=== PATIENT | female | born 1975 | race Two or more races ===

== ENCOUNTER 2020-11-01 07:28 | Emergency (ER) | payer MEDICAID, SELFPAY ==
--- NOTE | 2020-11-01 07:41 | ED_ITS ---
HPI - Ear Problem General Stated complaint: Ear Problems Time Seen by Provider: 11/01/20 07:41 Source: patient and aerial photograph interpreter Mode of arrival: ambulatory Limitations: no limitations History of Present Illness MD Complaint: ear pain Location: right ear Duration: constant Severity: moderate Relieving factors: nothing Exacerbating factors: nothing Context: other (thought maybe a bug got in her ear while walking home yesterday flushed it with water but did not see a bug) Discharge from ear: no Treatment prior to arrival: none Related Data Previous Rx's Medication Instructions Recorded ofloxacin 10 drp OTIC (EARS) DAILY 7 Days #5 11/01/20 ml Allergies Allergy/AdvReac Type Severity Reaction Status Date / Time acetaminophen [From PERCOCET] Allergy Unknown NAUSEA & Unverified 01/04/20 15:41 VOMITING & DIAPHORESIS From PERCOCET Allergy Unknown NAUSEA & Uncoded 01/04/20 15:41 VOMITING & DIAPHORESIS Review of Systems Review of Systems: Constitutional : No Fever, No Chills ENT/Mouth : No swallowing difficulty, no change in voice, R ear pain Eyes: No Eye Pain, No Swelling Cardiovascular : No Chest Pain, No SOB Respiratory : No Cough, No Sputum Gastrointestinal : No Nausea, No Vomiting, No Diarrhea Genitourinary : No Dysuria Musculoskeletal : No Myalgias Skin : No rash Neuro : No Weakness, No Numbness, No Headache PMFSH Past Medical History Attestation statement: The following information was validated with the patient. Medical History Anxiety Asthma Social History Social History (Updated 11/01/20 @ 07:58 by Lisa Silver DO) Patient Tobacco Use Status: Never used Tobacco Use of substances other than those prescribed or required for medical reasons: No Advance Directives: No Advance Directives Information Provided: No Physical Exam Vital Signs: Appearance: Alert. Oriented X3. No acute distress. Eyes: Pupils equal, round and reactive to light. ENT: Pharynx normal. R TM mild cerumen no perforation, mild erythema of canal, no perforation normal TM, L TM normal, no mastoid ttp Neck: Normal inspection. Neck supple. CVS: Pulses normal. Respiratory: No respiratory distress. Abdomen: Soft Skin: Skin warm and dry. Normal skin color. Normal skin turgor. Extremities: No lower extremity edema. Neuro: Oriented X 3. No motor deficit. No sensory deficit. MDM - Ear MDM Narrative Medical decision making narrative: 45 yo female with hx of asthma 1 days of R sided ear pain she thought a bug was in it - currently has mild cerumen but also mild otitis externa - no insect seen, no signs of deeper space infection, no perforation - gtts ordered Discharge Plan Discharge Clinical Impression: Otitis externa Qualifiers: Otitis externa type: unspecified type Chronicity: acute Laterality: right Qualified Code(s): H60.501 - Unspecified acute noninfective otitis externa, right ear Patient Disposition: Home, Self-Care Instructions: Otitis Externa (ED) Additional Instructions: return to ED for any worsening symptoms or concerns no le entre agua en el o?do ramón 3 d?as. si no mejora en 3 d?as, consulte a gomes m?dico. Prescriptions: New ofloxacin 0.3 % drops 10 drp otic (ears) DAILY 7 Days Qty: 5 RF: 0 Referrals: Physician,Unknown [Physician] - 3 days (si no mejor) Print Language: Kazakh
== END 2020-11-01 08:23 | disposition home or self-care (01) ==
LOC: HO.ED 07:53
PROVIDERS: Emergency Provider Emergency Medicine; PCP Student in an Organized Health Care Education/Training Program
DX: H60.501 Unspecified acute noninfective otitis externa, right ear (principal); J45.909 Unspecified asthma, uncomplicated
CPT/HCPCS: 99283

== ENCOUNTER 2021-10-13 13:36 | Outpatient (REF) | payer MEDICAID, SELFPAY ==
--- NOTE | ~2021-10-13 | US_ITS ---
EXAMINATION: US VENOUS ULTRASOUND WITH DOPPLER LOWER EXTREMITY, LEFT CLINICAL INFORMATION: Soft tissue disorder with edema and swelling COMPARISON: Left lower extremity DVT study 11/15/2017 TECHNIQUE: Ultrasound of the deep veins is performed from the hip to the calf with compression sonography and color and pulse Doppler assessment. Spectral analysis with color-flow imaging is performed. FINDINGS: There is normal venous compression and respiratory variation and augmented flow. The visualized common femoral vein, superficial femoral vein, profunda femoral vein, popliteal vein, and the trifurcation region shows no evidence of deep venous thrombosis. There is no significant popliteal fossa cyst. If the patient's symptoms persist, followup ultrasound in 5 days 7 days might be of value to exclude proximal propagation from a non-visualized calf vein. US/US venous duplex LE IMPRESSION: No DVT demonstrated in the left lower extremity.
== END 2021-10-13 13:37 | disposition home or self-care (01) ==
LOC: HO.US 13:36
PROVIDERS: Visit Provider Internal Medicine
DX: R60.0 Localized edema (principal); M79.89 Other specified soft tissue disorders
CPT/HCPCS: 93971

== ENCOUNTER 2021-10-16 08:42 | Outpatient (REF) | payer MEDICAID, SELFPAY ==
--- NOTE | ~2021-10-16 | MM_ITS ---
EXAMINATION: MM SCREENING DIGITAL BREAST TOMOSYNTHESIS, BILATERAL CLINICAL INFORMATION: Screening. Asymptomatic. The lifetime risk of breast cancer based on the Tyrer-Cuzick Model is 12%. COMPARISON: Mammography: 10/03/2018, 07/27/2017, 06/03/2016 TECHNIQUE: Digital breast tomosynthesis is performed in both the craniocaudal and mediolateral oblique views along with computer-aided detection (CAD). Synthesized 2D images are generated from the tomosynthesis. Additional bilateral CC and bilateral MLO views are provided. FINDINGS: There are scattered areas of fibroglandular density (ACR BI-RADS breast composition Category b). There are no significant masses, abnormal calcifications, or other abnormalities. Breast tissue composition borders on predominantly fatty. Background stromal markings similar to prior studies. The axilla and skin contours are unremarkable. MM/MM tomosynthesis screening BI IMPRESSION: No mammographic evidence of malignancy. ASSESSMENT: BI-RADS 1: Negative RECOMMENDATION: Routine annual mammography screening. This patient's information was entered into a reminder system with a target due date for their next mammogram.
== END 2021-10-16 08:43 | disposition home or self-care (01) ==
LOC: HO.MAMMO 08:42
PROVIDERS: PCP Internal Medicine; Visit Provider Student in an Organized Health Care Education/Training Program
DX: Z12.31 Encounter for screening mammogram for malignant neoplasm of breast (principal)
CPT/HCPCS: 77063; 77067

== ENCOUNTER 2022-01-13 10:58 | Outpatient (REF) | payer MEDICAID, SELFPAY ==
--- NOTE | ~2022-01-13 | XR_ITS ---
EXAMINATION: XR SHOULDER, RIGHT CLINICAL INFORMATION: Pain COMPARISON: None TECHNIQUE: Three views of the right shoulder. FINDINGS: No acute fracture or dislocation. Joint spaces are maintained. Soft tissues are unremarkable. XR/XR shoulder RT min 2V IMPRESSION: Unremarkable radiographs of the shoulder.
== END 2022-01-13 10:59 | disposition home or self-care (01) ==
LOC: HO.XRAY 10:58
PROVIDERS: PCP Student in an Organized Health Care Education/Training Program; Visit Provider Student in an Organized Health Care Education/Training Program
DX: M25.511 Pain in right shoulder (principal); G56.91 Unspecified mononeuropathy of right upper limb
CPT/HCPCS: 73030

== ENCOUNTER 2022-03-04 10:17 | Outpatient (REF) | payer MEDICAID, SELFPAY ==
--- NOTE | ~2022-03-04 | XR_ITS ---
EXAMINATION: XR FOOT, RIGHT CLINICAL INFORMATION: Trauma COMPARISON: Previous x-ray from 2010 TECHNIQUE: AP, lateral, and oblique views of the right foot. FINDINGS: Bone alignment is normal. No fracture or dislocation. Normal joint spaces. Plantar calcaneal spur. Soft tissues are otherwise normal. XR/XR foot RT min 3V IMPRESSION: No acute findings.
== END 2022-03-04 10:18 | disposition home or self-care (01) ==
LOC: HO.XRAY 10:17
PROVIDERS: PCP Student in an Organized Health Care Education/Training Program; Visit Provider Emergency Medicine
DX: S99.921A Unspecified injury of right foot, initial encounter (principal)
CPT/HCPCS: 73630

== ENCOUNTER 2022-05-20 10:20 | Observation (INO) | payer MEDICAID, SELFPAY ==
[2022-05-20] VITALS (7 sets, daily range): BP systolic 153–201; BP diastolic 79–109; PULSE 79–107; RESP 16–20; TEMP 36.2–37; O2SAT 93–99; BMI 50.5
--- NOTE | ~2022-05-20 | CT_ITS ---
EXAMINATION: CT HEAD WITHOUT CONTRAST CLINICAL INFORMATION: Facial droop x2 days. Numbness. COMPARISON: No relevant prior imaging. TECHNIQUE: Contiguous axial imaging was performed from the skull base to vertex without intravenous administration of contrast. This CT examination was performed using dose optimization techniques as appropriate, variously including the following: *Automated exposure control *Adjustment of mA and/or kV according to patient size (this includes techniques or standardized protocols for targeted exams where dose is matched to indication/reason for exam; i.e. extremities or head) *Use of iterative reconstruction technique DLP: 796 mGy-cm FINDINGS: There is no acute intracranial hemorrhage or abnormal extra-axial collection. No intracranial mass effect or midline shift. Lateral and third ventricles are normal. No hydrocephalus. Mireles-white matter differentiation is grossly preserved and there is no evidence of acute territorial infarct. The calvarium and skull base are intact. Mastoid air cells and middle ear cavities are well aerated. No active paranasal sinus disease. CT/CT head/brain wo IV con IMPRESSION: Unremarkable CT scan of the head. Specifically no evidence of acute territorial infarct or hemorrhage.
--- NOTE | ~2022-05-20 | CT_ITS ---
EXAMINATION: CT ANGIOGRAM HEAD CT ANGIOGRAM NECK CLINICAL INFORMATION: Right facial droop COMPARISON: prior same-day head CT TECHNIQUE: Initial noncontrast psychiatric aides teacher imaging of the head and neck was performed. Comparison is made with noncontrast head CT from earlier today. Test bolus sequences followed by intravenous administration 70 mL of Omnipaque 350. Helical imaging was performed in the axial plane from the aortic arch to the skull vertex. Delayed postcontrast imaging of the head was also performed. The data was processed at the chemical engineering technologist's workstation for generation of MIP sequences. Angled MIPs and volume rendered reformatted images were also generated at an offline 3D workstation. Stenoses are assessed in accordance with NASCET criteria unless otherwise indicated. This CT examination was performed using dose optimization techniques as appropriate, variously including the following: *Automated exposure control *Adjustment of mA and/or kV according to patient size (this includes techniques or standardized protocols for targeted exams where dose is matched to indication/reason for exam; i.e. extremities or head) *Use of iterative reconstruction technique DLP: 1671 mGy-cm FINDINGS: CT HEAD: Noncontrast head CT findings are discussed separately. No pathologic intra-axial enhancement within limitations of CT or regional oligemia. CTA HEAD: Suboptimal examination due to delayed arteriovenous timing of contrast bolus. Within these limitations, there is no hemodynamically significant stenosis or proximal large vessel occlusion within the anterior or posterior circulation. No saccular aneurysm or high flow vascular malformation. Timing of the contrast bolus allows assessment of the major dural venous sinuses, which all opacify normally CTA NECK: Suboptimal examination due to timing of contrast bolus and beam hardening artifact from patient's body habitus.Classic 3 vessel branching pattern of the aortic arch. The cervical arterial vasculature appears grossly patent within these limitations, noting limited assessment for subtle intimal irregularity or dissection, particularly of the proximal vertebral arteries. CT NECK: No aerodigestive tract mass. . The salivary glands are unremarkable. The thyroid gland is normal. Normal appearance of the suprahyoid and infrahyoid neck spaces. No pathologically enlarged cervical chain lymph nodes. The osseous structures are intact. The visualized lung apices and upper mediastinum are within normal limits. CT/CT angio head neck IMPRESSION: Suboptimal CTA secondary to delayed timing of contrast bolus and beam hardening artifact, particularly affecting the proximal cervical vessels. Within these limitations, no acute arterial occlusion or hemodynamically significant stenosis within the head or neck.
--- NOTE | 2022-05-20 11:27 | ED_ITS ---
HPI - Neuro Symptoms/Deficit General Chief Complaint: Neuro Symptoms/Deficit Stated Complaint: Neck pain/mouth droop sent [facility] Time Seen by Provider: 05/20/22 10:48 Source: patient Mode of arrival: ambulatory Limitations: no limitations History of Present Illness HPI Narrative: Patient is a 47-year-old female who presents to the emergency department with referral from [facility]. Patient states that 3 days ago she began developing right lateral neck pain, she was evaluated and prescribed baclofen for muscle spasm. She states yesterday she took the baclofen at 1200. Her significant other felt that approximately 3 hours later her speech was different than normal, felt as though it sounded more slurred/muffled. She was evaluated again at PCP office today and sent here for evaluation of Good's palsy versus stroke. 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 Per family at bedside, overall her face does appear typical for baseline, however the drooping to her smile on the right side does appear slightly worse today. Related Data Previous Rx's Medication Instructions Recorded ofloxacin 0.3 % ear drops 10 drp otic (ears) DAILY 7 days #5 11/01/20 mL Allergies Allergy/AdvReac Type Severity Reaction Status Date / Time acetaminophen [From PERCOCET] Allergy Unknown NAUSEA & Unverified 01/04/20 15:41 VOMITING & DIAPHORESIS PMFSH Past Medical History Medical History Anxiety Asthma HTN (hypertension) Morbid obesity Social History Social History Alcohol intake: never Patient Tobacco Use Status: Never used Tobacco Smoked in Last 30 Days: No Use of substances other than those prescribed or required for medical reasons: No Advance Directives: No Advance Directives Information Provided: Yes Patient : No Physical Exam Vital Signs: Vital Signs: Last Vital Signs Temp 98.6 F 05/20/22 10:23 Pulse 100 05/20/22 15:37 Resp 18 05/20/22 15:37 BP 153/79 H 05/20/22 15:37 Pulse Ox 99 05/20/22 15:37 O2 Del Method 05/20/22 15:37 BMI result Body Mass Index 50.5 Appearance: Alert.?Oriented to person, place and time. No acute d istress.?Normal affect. Eyes: Pupils equal, round and reactive to light.? ENT: Pharynx normal.? TM normal bilaterally. ? Neck: Normal inspection.? Neck supple.?? CVS: Heart sounds normal. Normal heart rate and rhythm.? Pulses normal.?? Respiratory: No respiratory distress.? Lung sounds clear to auscultation bilaterally?? Abdomen: Soft and non-tender. Normoactive bowel sounds. No pulsatile mass.?? Skin: Skin warm and dry.? Normal skin color.? Normal skin turgor.?? Extremities: No lower extremity edema.? No calf ttp? Neuro: Facial asymmetry, right-sided facial droop, per family appears more pronounced at the mouth and baseline, normal sensory observed, normal coordination observed. Level of consciousness: Appropriate for age. Motor strength: Proximal right upper extremity 5 /5, distal right upper ext remity 5 /5, proximal left upper extremity 5 /5, distal left upper extremity 5 /5, right lower extremity 5 /5, left lower extremity 5 /5.?Speech: Normal, Gait: Normal, Bhelnf-mb-hivm test: Normal, Dldi-wy-qayt test: Normal. Ambulates with normal steady gait. Course Reevaluation(s) Reevaluation #1: CBC reveals no leukocytosis, no anemia. CMP is overall unremarkable. CRP mildly elevated 0.75, ESR is within normal limits. CT without evidence of acute intracranial pathology, no territorial infarct or hemorrhage is noted. At this time, patient and her family both expressed concern that her voice is not entirely back to normal. Additionally continues to report that paralysis to the right side of the mouth is remains slightly worse than what is baseline. ED attending Dr. Ruvalcaba at bedside also evaluate patient. There are no additional focal neurological deficits upon examination. Will obtain MRI of the brain to exclude infarct, patient with reports of claustrophobia and anxiety surrounding MRI, patient to be premedicated with lorazepam prior to scan. She is agreeable with plan of care at this time. Time: 14:37 Reevaluation #2: Advised that due to body habitus, patient would not be able to have MRI. Spoke with hospitalist service, Dr. Ramires, who accepts patient for admission to Medicine, for further evaluation, Neurology consult. Patient continues to express right lateral neck/trapezius pain at this time, tenderness upon palpation, consistent with musculoskeletal pain, will trial Flexeril Time: 16:44 Medications Administered Discontinued Medications Generic Name Dose Route Start Last Admin Trade Name Corina PRN Reason Stop Dose Admin Lorazepam 2 mg 05/20/22 14:34 05/20/22 15:39 Lorazepam 2 Mg/Ml Vial IVPUSH 05/20/22 14:35 2 mg ONCE ONE Administration Medical Decision Making Medical Decision Making [facility] Narrative: Patient is a 47-year-old female with past medical history of Good's palsy, asthma, hypertension, who presents emergency department with concerns for speech changes and worsening right partial facial paralysis particularly to the mouth, with last known well time 15:00 yesterday. NIH stroke score of 2 for facial palsy. Otherwise she is without any focal neurological deficits. Family at bedside does confirm that speech appears changed from baseline and right now weakness appears worse than normal. At this time concern for Good's palsy versus CVA. Will obtain CBC, CMP, ESR, CRP, Lyme testing, HSV testing, and CT of the head. Patient is agreeable plan of care. She is in no apparent distress. Vitals are stable. Differential Diagnosis Differential Diagnoses: The differential diagnosis associated with the presentation includes (As noted above) Admission/Observation Consideration of admission/observation: Escalation of care including admission/observation considered Lab Data [facility] Lab Attestation statement: I reviewed the patient's lab results. 05/20/22 12:10 05/20/22 12:10 Labs: Lab Results 05/20/22 05/20/22 05/20/22 Range/Units 12:10 12:10 12:10 WBC 9.3 (4.8-10.8) X10*3/uL RBC 5.40 (4.20-5.50) X10*6/uL Hgb 13.6 (12.0-16.0) g/dl Hct 42.2 (37.0-47.0) % MCV 78.1 L (80.0-98.0) fL MCH 25.2 L (27.0-33.0) pg MCHC 32.2 (31.0-35.0) g/dl RDW 13.6 (11.0-16.0) % Plt Count 244 (160-400) X10*3/uL MPV 11.4 (9.4-12.3) fL Immature Gran % (Auto) 0.4 (0.0-0.4) % Neut % (Auto) 72.3 (45-73) % Lymph % (Auto) 19.5 L (20-40) % [place] % (Auto) 5.5 (2-11) % Eos % (Auto) 1.9 (0-4) % Baso % (Auto) 0.4 (0-2) % Lymph # (Auto) 1.8 (1.2-4.9) X10*3/uL [place] # (Auto) 0.5 (0.1-1.2) X10*3/uL Eos # (Auto) 0.2 (0.0-0.4) X10*3/uL Baso # (Auto) 0.0 (0.0-0.2) X10*3/uL Abs Immat Gran (auto) 0.04 H (0.00-0.03) X10*3/uL Absolute Neuts (auto) 6.8 (2.0-8.3) x10*3/uL Absolute Nucleated RBC 0.000 (0.0-0.012) X10*3/uL Nucleated RBC % (auto) 0.0 (0.0-0.2) /100WBC ESR 20 (0-20) MM/HR PT 13.1 (10.0-13.1) SEC INR 1.1 (0.9-1.1) Sodium (135-145) mmol/L Potassium (3.3-5.1) mmol/L Chloride (96-108) mmol/L Carbon Dioxide (22-29) mmol/L Anion Gap (12-20) BUN (9-16) mg/dL Creatinine (0.5-1.4) mg/dL Estim Creat Clear Calc Estimated GFR Random Glucose (60-115) mg/dL Calcium (8.4-10.2) mg/dL Total Bilirubin (0.0-1.0) mg/dL AST (5-31) U/L ALT (0-31) U/L Alkaline Phosphatase (39-117) U/L C-Reactive Protein (< or = 0.50) mg/dL Total Protein (6.5-8.0) g/dL Albumin (3.5-5.0) g/dL 05/20/22 Range/Units 12:10 WBC (4.8-10.8) X10*3/uL RBC (4.20-5.50) X10*6/uL Hgb (12.0-16.0) g/dl Hct (37.0-47.0) % MCV (80.0-98.0) fL MCH (27.0-33.0) pg MCHC (31.0-35.0) g/dl RDW (11.0-16.0) % Plt Count (160-400) X10*3/uL MPV (9.4-12.3) fL Immature Gran % (Auto) (0.0-0.4) % Neut % (Auto) (45-73) % Lymph % (Auto) (20-40) % [place] % (Auto) (2-11) % Eos % (Auto) (0-4) % Baso % (Auto) (0-2) % Lymph # (Auto) (1.2-4.9) X10*3/uL [place] # (Auto) (0.1-1.2) X10*3/uL Eos # (Auto) (0.0-0.4) X10*3/uL Baso # (Auto) (0.0-0.2) X10*3/uL Abs Immat Gran (auto) (0.00-0.03) X10*3/uL Absolute Neuts (auto) (2.0-8.3) x10*3/uL Absolute Nucleated RBC (0.0-0.012) X10*3/uL Nucleated RBC % (auto) (0.0-0.2) /100WBC ESR (0-20) MM/HR PT (10.0-13.1) SEC INR (0.9-1.1) Sodium 139 (135-145) mmol/L Potassium 3.6 (3.3-5.1) mmol/L Chloride 103 (96-108) mmol/L Carbon Dioxide 25 (22-29) mmol/L Anion Gap 15 (12-20) BUN 13 (9-16) mg/dL Creatinine 0.85 (0.5-1.4) mg/dL Estim Creat Clear Calc 120.5 Estimated GFR > 60 Random Glucose 129 H (60-115) mg/dL Calcium 9.6 (8.4-10.2) mg/dL Total Bilirubin 0.6 (0.0-1.0) mg/dL AST 15 (5-31) U/L ALT 15 (0-31) U/L Alkaline Phosphatase 86 (39-117) U/L C-Reactive Protein 0.75 H (< or = 0.50) mg/dL Total Protein 7.2 (6.5-8.0) g/dL Albumin 4.1 (3.5-5.0) g/dL Independent Interpretation I performed an independent interpretation of an: CT Scan Radiology Impression Discussion of test interpretation with radiology: I have reviewed the radiologist's reading. Radiologist Impression: CT/CT head/brain wo IV con IMPRESSION: Unremarkable CT scan of the head. Specifically no evidence of acute territorial infarct or hemorrhage. NIH Stroke Scale Time: 11:15 Level of Consciousness: Alert Level of Consciousness Questions: Answers both questions correctly Level of Consciousness Commands: Performs both tasks correctly Best Gaze: Normal Visual: No visual loss Facial Palsy: Partial paralysis Motor Arm (Right): No drift Motor Arm (Left): No drift Motor Leg (Right): No drift Motor Leg (Left): No drift Limb Ataxia: Absent Sensory: Normal Best Language: No aphasia Dysarthia: Normal Extinction and Inattention: No abnormality Score: 2 Critical Care Time Critical Care Time Critical Care Time: Yes Total Critical Care Time: 45 Attestation: I personally attest to this critical care time spent taking care of the patient exclusive of all other billable procedures was approximately 45 minutes including initial evaluation of patient, ordering tests, x-ray interpretation, EKG interpretation, medical consultation, documentation, re-evaluation. Discharge Plan Discharge Clinical Impression: Facial droop, HTN (hypertension), Morbid obesity Patient Disposition: Admitted As Inpatient
[2022-05-20 12:14] LABS: MANUAL DIFF FLAG NO
[2022-05-20 12:16] LABS: Basophils Percent Auto 0.4 % (0-2); Eosinophils Absolute Auto 0.2 X10*3/uL (0.0-0.4); Eosinophils Percent Auto 1.9 % (0-4); Hematocrit 42.2 % (37.0-47.0); Hemoglobin 13.6 g/dl (12.0-16.0); Imm Gran Abs Auto 0.04 X10*3/uL (0.00-0.03); Imm Gran Pct Auto 0.4 % (0.0-0.4); Lymphocytes Absolute Auto 1.8 X10*3/uL (1.2-4.9); Lymphocytes Percent Auto 19.5 % (20-40); Mean Corpuscular HGB Conc 32.2 g/dl (31.0-35.0); Mean Corpuscular Hemoglobin 25.2 pg (27.0-33.0); Mean Corpuscular Volume 78.1 fL (80.0-98.0); Mean Platelet Volume 11.4 fL (9.4-12.3); Monocytes Absolute Auto 0.5 X10*3/uL (0.1-1.2); Monocytes Percent Auto 5.5 % (2-11); Neutrophils Absolute Auto 6.8 x10*3/uL (2.0-8.3); Neutrophils Percent Auto 72.3 % (45-73); Platelet Count 244 X10*3/uL (160-400); Red Cell Distribution Width 13.6 % (11.0-16.0); White Blood Count 9.3 X10*3/uL (4.8-10.8)
[2022-05-20 12:21] LABS: INTERNATIONAL NORM RATIO 1.1 (0.9-1.1); Prothrombin Time 13.1 SEC (10.0-13.1)
[2022-05-20 12:37] LABS: Alanine Aminotransferase 15 U/L (0-31); Albumin Level 4.1 g/dL (3.5-5.0); Alkaline Phosphatase 86 U/L (39-117); Anion Gap 15 (12-20); Aspartate Amino Transferase 15 U/L (5-31); Bilirubin Total 0.6 mg/dL (0.0-1.0); Blood Urea Nitrogen 13 mg/dL (9-16); C Reactive Protein 0.75 mg/dL (< or = 0.50); Calcium 9.6 mg/dL (8.4-10.2); Carbon Dioxide 25 mmol/L (22-29); Chloride 103 mmol/L (96-108); Creatinine Clr Calc Pharmacy 120.5; Estimated Glomerular Filt Rate > 60; Glucose Random 129 mg/dL (60-115); Potassium 3.6 mmol/L (3.3-5.1); Sodium 139 mmol/L (135-145); Total Protein 7.2 g/dL (6.5-8.0)
[2022-05-20 12:56] LABS: Erythrocyte Sedimentation Rate 20 MM/HR (0-20)
--- NOTE | 2022-05-20 15:21 | PC.NURSE ---
MRI screening form faxed at this time.
[2022-05-20] MEDS: LORazepam 2 MG/ML VIAL IVPUSH (15:39)
--- NOTE | 2022-05-20 15:47 | PC.NURSE ---
Pt to MRI.
--- NOTE | 2022-05-20 16:24 | PC.NURSE ---
back from mri at this time.
--- NOTE | 2022-05-20 17:23 | P.HPHOSP_ITS ---
History of Present Illness Date of Service: 05/20/22 Chief Complaint: right facial droop 47F pmh HTN, HLD, morbid obesity presented with right facial droop. patient was complaining of left sided neck soreness 2 days ptp. was prescribed baclofen, after taking baclofen noted right facial droop and slurred speech. in ED CTH unremarkable, unable to fit in MRI. facial droop unchanged. Review of Systems Review of Systems: Yes all other systems are reviewed and are negative [facility] Medical History Anxiety Asthma HTN (hypertension) Morbid obesity Social History Alcohol intake: never Patient Tobacco Use Status: Never used Tobacco Smoked in Last 30 Days: No Use of substances other than those prescribed or required for medical reasons: No Advance Directives: No Advance Directives Information Provided: Yes Patient : No Meds Allergies Allergy/AdvReac Type Severity Reaction Status Date / Time acetaminophen [From PERCOCET] Allergy Unknown NAUSEA & Unverified 01/04/20 15:41 VOMITING & DIAPHORESIS Active Medications: Current Medications Aspirin (Aspirin 81 Mg Tab.Chew) 81 mg PO DAILY [facility] Atorvastatin Calcium (Atorvastatin Calcium 80 Mg Tablet) 80 mg PO BEDTIME [facility] Pharmacy Consult (Consult Rx Perform Med Rec) 1 each MISCELLANE ONCE PRN PRN Reason: Consult order Pharmacy Consult (Consult Rx Perform Med Rec) 1 each MISCELLANE ONCE PRN PRN Reason: Consult order Physical Exam Vital Signs and Narrative: Vital Signs: Last Vital Signs Temp 98.6 F 05/20/22 10:23 Pulse 100 05/20/22 15:37 Resp 18 05/20/22 15:37 BP 153/79 H 05/20/22 15:37 Pulse Ox 99 05/20/22 15:37 O2 Del Method 05/20/22 15:37 BMI result Body Mass Index 50.5 General: AO X 3, no acute distress Resp: CTA bilateral, no accessory muscles used CVS: S1,S2,RRR GI: soft, non tender, non distended Neuro: right facial droop Psych: appropriate affect, appropriate insight Results Labs 05/20/22 12:10 05/20/22 12:10 Labs: Laboratory Results - last 24 hr 05/20/22 05/20/22 05/20/22 12:10 12:10 12:10 MCV 78.1 L MCH 25.2 L MCHC 32.2 RDW 13.6 Plt Count 244 MPV 11.4 Immature Gran % (Auto) 0.4 Neut % (Auto) 72.3 Lymph % (Auto) 19.5 L [place] % (Auto) 5.5 Eos % (Auto) 1.9 Baso % (Auto) 0.4 Lymph # (Auto) 1.8 [place] # (Auto) 0.5 Eos # (Auto) 0.2 Baso # (Auto) 0.0 Abs Immat Gran (auto) 0.04 H Absolute Neuts (auto) 6.8 Absolute Nucleated RBC 0.000 Nucleated RBC % (auto) 0.0 ESR 20 PT 13.1 INR 1.1 Anion Gap Estim Creat Clear Calc Estimated GFR Random Glucose Calcium Total Bilirubin AST ALT Alkaline Phosphatase C-Reactive Protein Total Protein Albumin 05/20/22 12:10 MCV MCH MCHC RDW Plt Count MPV Immature Gran % (Auto) Neut % (Auto) Lymph % (Auto) [place] % (Auto) Eos % (Auto) Baso % (Auto) Lymph # (Auto) [place] # (Auto) Eos # (Auto) Baso # (Auto) Abs Immat Gran (auto) Absolute Neuts (auto) Absolute Nucleated RBC Nucleated RBC % (auto) ESR PT INR Anion Gap 15 Estim Creat Clear Calc 120.5 Estimated GFR > 60 Random Glucose 129 H Calcium 9.6 Total Bilirubin 0.6 AST 15 ALT 15 Alkaline Phosphatase 86 C-Reactive Protein 0.75 H Total Protein 7.2 Albumin 4.1 Imaging Radiologist's Impressions: Impressions Head CT 05/20/22 12:39 IMPRESSION: Unremarkable CT scan of the head. Specifically no evidence of acute territorial infarct or hemorrhage. Assessment and Plan (1) HTN (hypertension): Status: Acute Plan 47F pmh HTN, hld, morbid obesity presented with right facial droop right facial droop unable to obtain mri asa, statin neuro eval cta head and neck htn permissive htn hld statin morbid obesity weight loss dvt prohpylaxis - lovenox full code Time Spent With Patient Time: Total time managing care of this patient today ____ minutes. Quality Stroke Does the patient have a stroke diagnosis?: No VTE Prior VTE?: No VTE Risk Level:: Medical - moderate - high VTE Device Contraindication: Treatment Not Indicated VTE Drug Contraindication: N/A - Med Ordered
--- NOTE | 2022-05-20 18:05 | PHA.MEDREC ---
Pharmacy Consult ? Medication Reconciliation Pharmacy has completed the medication reconciliation. Pt also said that she was on a cholesterol and BP med, verified with [facility], last fill as 6 months ago, made aware
[2022-05-20 18:58] LABS: COVID-19 Test Negative (Negative); IDNOW Serial# BCCEAD1C
[2022-05-20] MEDS: iohexoL 350 MG/ML 100 ML INFUS..BTL IV (19:14)
[2022-05-20] MEDS: Cyclobenzaprine HCl 10 MG TABLET PO (19:30)
--- NOTE | 2022-05-20 19:38 | PC.NURSE ---
Called nurse to nurse report [place] Mer[place] [facility] [place]
[2022-05-20] MEDS: Atorvastatin Calcium 80 MG TABLET PO (21:44)
[2022-05-20] MEDS: 0.9 % Sodium Chloride Flush 3 ML SYRINGE IVFLUSH (23:33)
[2022-05-20] MEDS: Ketorolac Tromethamine 30 MG/ML VIAL IVPUSH (23:33)
[2022-05-21 04:00] VITALS: BP 173/93; PULSE 68; RESP 18; TEMP 36.6; O2SAT 100
[2022-05-21 06:40] LABS: Hematocrit 42.4 % (37.0-47.0); Hemoglobin 13.2 g/dl (12.0-16.0); Mean Corpuscular HGB Conc 31.1 g/dl (31.0-35.0); Mean Corpuscular Volume 80.3 fL (80.0-98.0); Mean Platelet Volume 11.5 fL (9.4-12.3); Platelet Count 254 X10*3/uL (160-400); Red Blood Count 5.28 X10*6/uL (4.20-5.50); Red Cell Distribution Width 13.7 % (11.0-16.0); White Blood Count 9.3 X10*3/uL (4.8-10.8)
[2022-05-21 07:06] LABS: Anion Gap 16 (12-20); Blood Urea Nitrogen 14 mg/dL (9-16); Calcium 9.7 mg/dL (8.4-10.2); Carbon Dioxide 25 mmol/L (22-29); Chloride 102 mmol/L (96-108); Cholesterol 207 mg/dL; Creatinine Clr Calc Pharmacy 123.4; Estimated Glomerular Filt Rate > 60; Glucose Fasting 138 mg/dL (60-99); HDL Cholesterol 43 mg/dL; LDL Cholesterol Calculated 140 mg/dl; Potassium 3.8 mmol/L (3.3-5.1); Sodium 139 mmol/L (135-145); Triglycerides 120 mg/dL
[2022-05-21 07:52] VITALS: BP 145/78; PULSE 83; RESP 16; TEMP 36; O2SAT 97
[2022-05-21] MEDS: 0.9 % Sodium Chloride Flush 3 ML SYRINGE IVFLUSH (08:26)
[2022-05-21] MEDS: Enoxaparin Sodium 40 MG/0.4 ML SYRINGE SUBCUT (08:26)
[2022-05-21] MEDS: Aspirin 81 MG TAB.CHEW PO (08:26)
--- NOTE | 2022-05-21 08:47 | MHC.CM.PN ---
MOSES DELIVERED. PT LIVES ALONE IN AN APARTMENT. HAS NO SERVICES AT HOME AND USES NO DME. PT IS EMPLOYED [employer] WORK[employer]. NO HCP AND DECLINES TO COMPLETE ONE AT THIS TIME. COVID VAX X4. PCP DR. QUINTANA AT [facility]. DP: HOME NO SERVICES ANTICIPATED, FAMILY WILL TRANSPORT HOME.
--- NOTE | 2022-05-21 10:44 | PM.NEUROCN ---
History of Present Illness Data of Consult Service Date: 05/21/22 Primary Care Provider: Meredith Morris MD HPI Reason for consult: Facial weak 47 years old woman morbidly obese who came to hospital with facial weakness. She denied any headache or ear pain or any cold or flu-like illness though recently she had complained of neck pain and was prescribed some baclofen. She reported that 15 years ago she had some facial neuropathy. Review of Systems Review of Systems: No recent cold or flu-like illness PMFSH Past Medical History Medical History Anxiety Asthma HTN (hypertension) Morbid obesity Social History Social History Household Members: Significant Other Housing: Apartment Do you presently have visiting nurse or other home services: No Alcohol intake: never Patient Tobacco Use Status: Never used Tobacco Smoked in Last 30 Days: No Use of substances other than those prescribed or required for medical reasons: No Currently Displaying Signs/Symptoms of Drug Intoxication Withdrawal: No Have you been hit, kicked, punched, or otherwise hurt by someone within the past year? If so, by whom?: No Do you feel safe in your current relationship?: Yes Advance Directives: No Advance Directives Information Provided: Yes Recently lost weight without trying: No Nutrition Risks: No Nutritional Risk Patient : No : No Poor oral hygiene: No service: No Current occupational status: employed Meds Allergies Allergy/AdvReac Type Severity Reaction Status Date / Time acetaminophen [From PERCOCET] Allergy Unknown NAUSEA & Unverified 01/04/20 15:41 VOMITING & DIAPHORESIS Active Medications: Current Medications Aspirin (Aspirin 81 Mg Tab.Chew) 81 mg PO DAILY [facility] Last Admin: 05/21/22 08:26 Dose: 81 mg Atorvastatin Calcium (Atorvastatin Calcium 80 Mg Tablet) 80 mg PO BEDTIME [facility] Last Admin: 05/20/22 21:44 Dose: 80 mg Enoxaparin Sodium (Enoxaparin Sodium 40 Mg/0.4 Ml Syringe) 40 mg SUBCUT Q24H [facility] Last Admin: 05/21/22 08:26 Dose: 40 mg Pharmacy Consult (Consult Rx Perform Med Rec) 1 each MISCELLANE ONCE PRN PRN Reason: Consult order Pharmacy Consult (Consult Rx Perform Med Rec) 1 each MISCELLANE ONCE PRN PRN Reason: Consult order Sodium Chloride (0.9 % Sodium Chloride Flush 3 Ml Syringe) 3 ml IVFLUSH QSHIFT LILO Last Admin: 05/21/22 08:26 Dose: 3 ml Home Medications Medication Instructions Recorded Confirmed Last Taken Type aspirin 81 mg tablet,delayed 1 tab PO DAILY 05/20/22 05/20/22 05/20/22 History release baclofen 10 mg tablet 10 mg PO BID PRN Muscle Spasm 05/20/22 05/20/22 05/20/22 History fluticasone propionate 110 2 puff inhalation BID 05/20/22 05/20/22 05/19/22 History mcg/actuation HFA aerosol inhaler (Flovent HFA) Physical Exam Vital Signs: Vital Signs: Last Vital Signs Temp 96.8 F 05/21/22 07:52 Pulse 83 05/21/22 07:52 Resp 16 05/21/22 07:52 BP 145/78 H 05/21/22 07:52 Pulse Ox 97 05/21/22 07:52 O2 Del Method 05/21/22 07:52 BMI result Body Mass Index 50.5 Neuro: Other: He is alert and awake with normal spontaneity of speech fluency comprehension and affect. Speech is slurred because of facial weakness. There is moderate right-sided peripheral type facial weakness though lower part of the face is affected more than upper. Tongue is midline. Visual granados are full. Extraocular muscles were intact. Pupils are equal and reactive to light. There is no pronator drift. Deep tendon reflexes are trace to absent with with withdrawing plantars. Results Labs 05/21/22 06:03 05/21/22 06:03 Labs: Short CBC 05/20/22 05/21/22 Range/Units 12:10 06:03 WBC 9.3 9.3 (4.8-10.8) X10*3/uL Hgb 13.6 13.2 (12.0-16.0) g/dl Hct 42.2 42.4 (37.0-47.0) % Plt Count 244 254 (160-400) X10*3/uL BMP 05/20/22 05/21/22 12:10 06:03 Sodium 139 139 Potassium 3.6 3.8 Chloride 103 102 Carbon Dioxide 25 25 BUN 13 14 Creatinine 0.85 0.83 Calcium 9.6 9.7 Liver Function 05/20/22 Range/Units 12:10 Total Bilirubin 0.6 (0.0-1.0) mg/dL AST 15 (5-31) U/L ALT 15 (0-31) U/L Alkaline Phosphatase 86 (39-117) U/L Albumin 4.1 (3.5-5.0) g/dL Her initial systolic blood pressure was 201. Head CT did not reveal any significant abnormality per Assessment and Plan (1) Facial droop: Status: Acute 47 years old woman with new onset of right-sided facial weakness. Weakness has features of peripheral type of pathology but there is some atypical features. Her initial blood pressure was very high putting her at risk for stroke and weakness is somewhat more on the lower part of the face than upper. This would increase possibility of a stroke or brain lesion causing this lesion. At the same time Good's palsy can also present in this way. Unfortunately MRI of brain could not be obtained because of her size, which could easily differentiate. Because of significant a static nature of this problem, my recommendation is to treat her with prednisone and valacyclovir while also treating her for high blood pressure and vascular disease. If possible, MRI of brain can be obtained as an outpatient on a different machine Time Spent With Patient Time: Total time managing care of this patient today ____ minutes. Procedures Date of Service Date of Service: 05/21/22
[2022-05-21 11:11] VITALS: BP 145/60; PULSE 79; RESP 20; TEMP 36.7; O2SAT 99
--- NOTE | 2022-05-21 12:44 | PM.DS ---
DS: Providers Provider Date of Service: 05/21/22 Date of admission: 05/20/22 17:21 Primary care physician: Meredith Morris MD Consults: 05/20/22 17:18 Consult to Neurology Routine Consulting Provider: [facility] Reason for consultation: right facial droop DS: Diagnosis Discharge Diagnosis (1) Facial droop: Status: Acute DS: Summary Hospital Course Hospital Course: from initial hpi: 47F pmh HTN, HLD, morbid obesity presented with right facial droop. patient was complaining of left sided neck soreness 2 days ptp. was prescribed baclofen, after taking baclofen noted right facial droop and slurred speech. in ED CTH unremarkable, unable to fit in MRI. facial droop unchanged. hospital course: Patient was admitted for right facial droop. She was unable to obtain MRI due to size. CT angio head and neck were negative. She was seen by neurology recommended treating for Good's palsy with 1 week of prednisone and valacyclovir. She should try to obtain MRI in machine that she can access as outpatient. For hypertension amlodipine will be added. Hyperlipidemia she will continue statin. For morbid obesity weight loss is recommended. Time Spent with Patient Time attestation: Total time managing care of this patient today ____ minutes. Discharge coordination time: Greater than 30 minutes Quality: Safe Use of Opioids Does Pt have an Active Cancer Diagnosis on the Problem List?: No Quality: Stroke Does the patient have a stroke diagnosis?: No Physical Exam Vital Signs: Vital Signs: Last Vital Signs Temp 98.1 F 05/21/22 11:11 Pulse 79 05/21/22 11:11 Resp 20 05/21/22 11:11 BP 145/60 H 05/21/22 11:11 Pulse Ox 99 05/21/22 11:11 O2 Del Method 05/21/22 11:11 BMI result Body Mass Index 50.5 Neuro: Other: He is alert and awake with normal spontaneity of speech fluency comprehension and affect. Speech is slurred because of facial weakness. There is moderate right-sided peripheral type facial weakness though lower part of the face is affected more than upper. Tongue is midline. Visual granados are full. Extraocular muscles were intact. Pupils are equal and reactive to light. There is no pronator drift. Deep tendon reflexes are trace to absent with with withdrawing plantars. DS: Data Data Completed and Pending Labs on day of discharge: Laboratory Results - last 24 hr 05/20/22 05/20/22 05/21/22 12:10 18:29 06:03 WBC 9.3 RBC 5.28 Hgb 13.2 Hct 42.4 MCV 80.3 MCH 25.0 L MCHC 31.1 RDW 13.7 Plt Count 254 MPV 11.5 Absolute Nucleated RBC 0.000 Nucleated RBC % (auto) 0.0 ESR 20 Sodium Potassium Chloride Carbon Dioxide Anion Gap BUN Creatinine Estim Creat Clear Calc Estimated GFR Fasting Glucose Calcium Triglycerides Cholesterol LDL Cholesterol, Calc HDL Cholesterol COVID-19 (PADDY) Negative COVID-19 Clin Com See Note 05/21/22 06:03 WBC RBC Hgb Hct MCV MCH MCHC RDW Plt Count MPV Absolute Nucleated RBC Nucleated RBC % (auto) ESR Sodium 139 Potassium 3.8 Chloride 102 Carbon Dioxide 25 Anion Gap 16 BUN 14 Creatinine 0.83 Estim Creat Clear Calc 123.4 Estimated GFR > 60 Fasting Glucose 138 H Calcium 9.7 Triglycerides 120 Cholesterol 207 LDL Cholesterol, Calc 140 HDL Cholesterol 43 COVID-19 (PADDY) COVID-19 Clin Com Discharge Plan Discharge Anticipated Discharge Date/Time: 05/21/22 12:35 Patient Disposition: Home, Self-Care Discharge Diagnosis: bells Referrals: Meredith Morris MD [Primary Care Provider] - 1 Week Discharge Medications: New prednisone 20 mg tablet 60 mg PO DAILY Qty: 21 0RF valacyclovir 1 gram tablet 1,000 mg PO TID Qty: 21 0RF Continued aspirin 81 mg tablet,delayed release (DR/EC) 1 tab PO DAILY baclofen 10 mg Tablet 10 mg PO BID PRN (Reason: Muscle Spasm) fluticasone propionate [Flovent HFA] 110 mcg/actuation HFA aerosol inhaler 2 puff INHALATION BID Discharge Orders: Discharge Order (Routine); Ordered 05/21/22 Ordered By: Margarito Severino Diet: Advance to usual diet Activity on Discharge: As tolerated Stand Alone Forms: Patient Portal Discharge page Other Ambulatory Orders: MR head/brain wo con (Routine) Timeframe: 1 Day Facility: [facility] - Location: MRI Ordered By: Margarito Severino Care Plan Goals: recovery Health Concerns: facial droop Plan of Treatment: 1 weeks prednisone and valacyclovir, mri Assessment: see above
--- NOTE | 2022-05-21 12:58 | MHC.CM.PN ---
DP: PT HAS BEEN MEDICALLY CLEARED TO DC HOME, NO SERVICES. RN AWARE. FAMILY TO TRANSPORT HOME
[2022-05-21] MEDS: Cyclobenzaprine HCl 5 MG TABLET PO (13:42)
[2022-05-22 17:28] LABS: Lyme Abs Screen <0.90 index
[2022-05-22 18:54] LABS: Herpes Simplex Type 1 IgG >58.00 index; Herpes Simplex Type 2 IgG <0.90 index
== END 2022-05-21 13:50 | disposition home or self-care (01) ==
LOC: HO.ED 11:02 → HO.EDOVER 17:35 → HO.IMC 17:40
PROVIDERS: Nurse Practitioner Family; Admitting Provider Internal Medicine; Emergency Provider Student in an Organized Health Care Education/Training Program; PCP Student in an Organized Health Care Education/Training Program; Visit Provider Internal Medicine
DX: G51.0 Bell's palsy (principal); R47.81 Slurred speech; E66.01 Morbid (severe) obesity due to excess calories; M54.2 Cervicalgia; Z68.43 Body mass index [BMI] 50.0-59.9, adult; E78.5 Hyperlipidemia, unspecified; I10 Essential (primary) hypertension
CPT/HCPCS: 36415; 70450; 70496; 70498; 80048; 80053; 80061; 85025; 85027; 85610; 85652; 86140; 86617; 86618; 86695; 86696; 87635; 96372; 96374; 96375; 99222; 99285; J1650; J1885; J2060; Q9967

== ENCOUNTER 2022-06-17 08:00 | Outpatient (RCR) | payer MEDICAID, SELFPAY | END 2022-07-06 14:32 | disposition home or self-care (01) | LOC: HO.PT 08:00 | PROVIDERS: PCP Internal Medicine; Visit Provider General Practice | DX: G51.0 Bell's palsy (principal); M54.2 Cervicalgia | CPT/HCPCS: 97110; 97112; 97162 ==

== ENCOUNTER 2022-10-28 11:02 | Outpatient (REF) | payer MEDICAID, SELFPAY ==
--- NOTE | ~2022-10-28 | US_ITS ---
EXAMINATION: US VENOUS ULTRASOUND WITH DOPPLER LOWER EXTREMITY, LEFT CLINICAL INFORMATION: Left lower extremity edema and pain COMPARISON: Left leg DVT study 10/13/2021 and 11/15/2017, both negative TECHNIQUE: Ultrasound of the deep veins is performed from the hip to the calf with compression sonography and color and pulse Doppler assessment. Spectral analysis with color-flow imaging is performed. FINDINGS: There is normal venous compression and respiratory variation and augmented flow. The visualized common femoral vein, superficial femoral vein, profunda femoral vein, popliteal vein, and the trifurcation region shows no evidence of deep venous thrombosis. Peroneal veins not seen secondary to body habitus There is no significant popliteal fossa cyst. If the patient's symptoms persist, followup ultrasound in 5 days 7 days might be of value to exclude proximal propagation from a non-visualized calf vein. US/US venous duplex LE LT IMPRESSION: No DVT demonstrated in the left lower extremity. If the patient has continued chronic leg swelling, consider superficial venous incompetence as an etiology and a reflux exam may be of value.
[2022-10-28 13:25] LABS: Estimated Average Glucose 154 mg/dL
[2022-10-28 14:14] LABS: Anion Gap 11 (12-20); Blood Urea Nitrogen 12 mg/dL (9-16); Calcium 9.2 mg/dL (8.4-10.2); Carbon Dioxide 26 mmol/L (22-29); Chloride 105 mmol/L (96-108); Estimated Glomerular Filt Rate > 60; Glucose Random 140 mg/dL (60-115); Sodium 138 mmol/L (135-145)
== END 2022-10-28 11:03 | disposition home or self-care (01) ==
LOC: HO.US 11:02
PROVIDERS: PCP Student in an Organized Health Care Education/Training Program; Visit Provider Emergency Medicine
DX: M79.89 Other specified soft tissue disorders (principal); M79.605 Pain in left leg; R73.09 Other abnormal glucose
CPT/HCPCS: 36415; 80048; 83036; 93971

== ENCOUNTER 2022-11-09 13:57 | Outpatient (REF) | payer MEDICAID, SELFPAY ==
--- NOTE | ~2022-11-09 | XR_ITS ---
EXAMINATION: XR FOOT, LEFT CLINICAL INFORMATION: Pain COMPARISON: Left foot radiograph from 12/24/2006 TECHNIQUE: AP, lateral, and oblique views of the left foot. FINDINGS: Acute visible fracture or dislocation. Plantar calcaneal heel spur. Mild spurring the dorsal midfoot. Joint spaces and alignment are otherwise maintained. Mild soft tissue prominence along the dorsum of the mid and forefoot. XR/XR foot LT min 3V IMPRESSION: 1. No acute visible fracture or dislocation. 2. Mild degenerative changes. 3. Mild soft tissue prominence along the dorsum of the mid and forefoot.
== END 2022-11-09 13:58 | disposition home or self-care (01) ==
LOC: HO.HHCX 13:57
PROVIDERS: Visit Provider Family Medicine
DX: M79.672 Pain in left foot (principal); B35.3 Tinea pedis
CPT/HCPCS: 73630

== ENCOUNTER 2022-11-19 12:50 | Outpatient (REF) | payer MEDICAID, SELFPAY ==
--- NOTE | ~2022-11-19 | US_ITS ---
EXAMINATION: US VENOUS ULTRASOUND WITH DOPPLER LOWER EXTREMITY, BILATERAL CLINICAL INFORMATION: Bilateral leg pain and swelling COMPARISON: 10/28/2022 TECHNIQUE: Ultrasound of the deep veins is performed from the hip to the calf with compression sonography and color and pulse Doppler assessment. Spectral analysis with color-flow imaging is performed. FINDINGS: RIGHT: There is normal venous compression and respiratory variation and augmented flow. The visualized common femoral vein, superficial femoral vein, profunda femoral vein, popliteal vein, and the trifurcation region shows no evidence of deep venous thrombosis. There is no significant popliteal fossa cyst. LEFT: There is normal venous compression and respiratory variation and augmented flow. The visualized common femoral vein, superficial femoral vein, profunda femoral vein, popliteal vein, and the trifurcation region shows no evidence of deep venous thrombosis. There is no significant popliteal fossa cyst. If the patient's symptoms persist, followup ultrasound in 5 days 7 days might be of value to exclude proximal propagation from a non-visualized calf vein. US/US venous duplex LE BI IMPRESSION: No DVT demonstrated in the left or right lower extremity.
== END 2022-11-19 12:51 | disposition home or self-care (01) ==
LOC: HO.US 12:50
PROVIDERS: PCP Student in an Organized Health Care Education/Training Program; Visit Provider Family Medicine
DX: M79.672 Pain in left foot (principal); R60.0 Localized edema
CPT/HCPCS: 93970

== ENCOUNTER 2022-12-17 09:32 | Outpatient (REF) | payer MEDICAID, SELFPAY ==
--- NOTE | ~2022-12-17 | XR_ITS ---
EXAMINATION: XR HAND, RIGHT CLINICAL INFORMATION: Right finger pain. COMPARISON: None available. TECHNIQUE: PA, lateral, and oblique views of the right hand. FINDINGS: There is no acute fracture or dislocation. The joint spaces are unremarkable. The carpal bones are normally aligned. The distal radius and ulnar are intact with mild soft tissue swelling is seen. No radiopaque foreign body. XR/XR hand RT min 3V IMPRESSION: Mild soft tissue swelling without acute abnormality or radiopaque foreign body. Specifically, the third digit appears intact.
== END 2022-12-17 09:33 | disposition home or self-care (01) ==
LOC: HO.HHCX 09:32
PROVIDERS: Visit Provider Registered Nurse
DX: M79.644 Pain in right finger(s) (principal)
CPT/HCPCS: 73130

== ENCOUNTER 2022-12-22 14:05 | Outpatient (REF) | payer MEDICAID, SELFPAY ==
--- NOTE | ~2022-12-22 | US_ITS ---
EXAMINATION: US SOFT TISSUE CLINICAL INFORMATION: Left heel pain. Evaluate for retained foreign body. COMPARISON: None available. TECHNIQUE: Real-time sonographic evaluation of the left heel. FINDINGS: Targeted sonography was performed of the left lateral heel at the site of pain as indicated by the patient. No discrete mass, fluid collection or other sonographic abnormality was detected. US/US extremity nonvascular IMPRESSION: Unremarkable examination. The decision to follow the area of concern should be based on the clinical assessment. If clinically indicated further cross-sectional imaging could be performed.
== END 2022-12-22 14:06 | disposition home or self-care (01) ==
LOC: HO.HMGCX 14:05
PROVIDERS: PCP Student in an Organized Health Care Education/Training Program; Visit Provider Registered Nurse
DX: M79.672 Pain in left foot (principal)
CPT/HCPCS: 76882

== ENCOUNTER 2023-01-06 09:12 | Outpatient (REF) | payer MEDICAID, SELFPAY ==
[2023-01-06 12:06] LABS: Alanine Aminotransferase 17 U/L (0-31); Albumin Level 3.9 g/dL (3.5-5.0); Alkaline Phosphatase 80 U/L (39-117); Anion Gap 13 (12-20); Aspartate Amino Transferase 13 U/L (5-31); Bilirubin Total 0.4 mg/dL (0.0-1.0); Blood Urea Nitrogen 14 mg/dL (9-16); Calcium 9.7 mg/dL (8.4-10.2); Carbon Dioxide 28 mmol/L (22-29); Chloride 104 mmol/L (96-108); Estimated Glomerular Filt Rate > 60; Glucose Random 131 mg/dL (60-115); Potassium 4.5 mmol/L (3.3-5.1); Sodium 140 mmol/L (135-145); Total Protein 7.2 g/dL (6.5-8.0)
== END 2023-01-06 09:13 | disposition home or self-care (01) ==
LOC: HO.HHCL 09:12
PROVIDERS: Visit Provider Emergency Medicine
DX: R10.12 Left upper quadrant pain (principal)
CPT/HCPCS: 36415; 80053

== ENCOUNTER 2023-06-29 10:57 | Outpatient (AMB) | payer MEDICAID, SELFPAY ==
[2023-06-29 11:04] VITALS: BP 164/83; PULSE 87; BMI 50.7
--- NOTE | 2023-06-29 11:04 | MHC.OFFVIS ---
Intake Vital Signs 06/29/23 11:04 Height 5 ft 6 in Weight 314 lb 6.067 oz BMI 50.7 BP 164/83 H Blood Pressure Location Lt brachial Position Sitting Pulse 87 Pulse Source Pulse Oximeter Intake Visit Reasons: Colonoscopy screening Intake Note: Pt presents to the office today for a colonoscopy screening. Pt states she does have some belly pain that comes and goes in her upper abdomen at random times. Pt denies any N/V/D. Allergies acetaminophen [From PERCOCET] Allergy (Unknown, Unverified 06/29/23 11:04) NAUSEA & VOMITING & DIAPHORESIS HPI Colonoscopy screening HPI Details 48 year old? female with past medical history of asthma, hypertension, morbid obesity, facial droop is here today for pre colonoscopy screening.? Patient was sent to us by her PCP.? This is her first colonoscopy screening.? Patient denies any gastrointestinal symptoms in the past or at present.? Occasional acid reflux depending what she eats. Denies any personal or family history of gastrointestinal disease, colon polyps, or cancer.? Patient never had anesthesia in the past.? Negative for history of sleep apnea.? Denies any history of cardiac, renal, pulmonary, or hepatic disease.?? No history of infectious? diseases like hepatitis A, B, C, HIV or tuberculosis.? Patient is on low dose aspirin [facility] Medical History Morbid obesity HTN (hypertension) Anxiety Asthma Social History Household Members: Significant Other Housing: Apartment Do you presently have visiting nurse or other home services: No Alcohol intake: never Patient Tobacco Use Status: Never used Tobacco service: No Current occupational status: employed Review of Systems Const Denies weight gain and Denies weight loss ENT Reports no additional complaints, Denies dysphagia and Denies odynophagia Card Reports no additional complaints Resp Reports no additional complaints GI Denies abdominal pain, Denies belching, Denies melena, Denies bloating, Denies change in bowel habits, Denies dysphagia, Denies excessive flatus, Denies dyspepsia, Reports heartburn (Occasional), Denies diarrhea, Denies loose stools, Denies nausea, Denies odynophagia and Denies vomiting Reports no additional complaints Musc Reports no additional complaints Neuro Reports no additional complaints Psych Reports no additional complaints Endo Reports no additional complaints Physical Exam Vital Signs: Last Vital Signs Pulse 87 06/29/23 11:04 BP 164/83 H 06/29/23 11:04 BMI result Body Mass Index 50.7 Const General: no acute distress Nutritional Appearance: obese Orientation/consciousness: patient oriented x3 Resp Effort & Inspection: normal respiratory effort, able to speak in complete sentences, no tracheal deviation and symmetric chest movement Auscultation: clear to auscultation bilaterally Cardio Rate: regular rate GI Inspection: Yes normal to inspection, No distended and Yes obesity Palpation (GI): Soft to palpation, not firm, nontender and No hepatosplenomegaly present Auscultation: normal bowel sounds General: Yes no CVA tenderness Back/Spine/Pelvis Back: no CVA tenderness Skin General skin exam: elasticity normal, turgor normal and dry skin Neuro General: patient oriented x3 Psych Appearance: grossly normal Mental Status: mental status grossly normal Assessment & Plan Assessment & Plan (1) Screen for colon cancer: Code(s): Z12.11 - Encounter for screening for malignant neoplasm of colon Plan Patient denies any GI, cardiac or respiratory symptoms.? Patient never had anesthesia in the past. Denies any history of sleep apnea.? History of asthma, using inhalers on as needed basis. Patient reports about every 3 months or so she may need to use an inhaler. No history infectious diseases in the past or present.? Patient is on low-dose aspirin. No family or personal history of colon cancer or polyps.? Patient denies melena, hematochezia, unintentional weight loss or ribbon like stools.? Discussed at length the pre-procedure,? prep, diet & medications as well as what to expect prior, during and after the procedure.?? Stressed the importance of good bowel prep. ?Recommended the use of Vaseline or Calmoseptine OTC & baby wipes with bowel movements to promote comfort.? ?Patient verbalizes understanding and agrees to plan of care.? She was given the opportunity to ask questions and all questions answered.? We will see her after the procedure.? Medications: New polyethylene glycol 3350 (Miralax) As directed by gastroenterology department at [facility] 238 grams PO ONCE 238 grams 0RF Z12.11 - Encounter for screening for malignant neoplasm of colon bisacodyl (Dulcolax (bisacodyl)) take 4 tabs at noon the day before your colonoscopy 20 mg (4 x 5 mg) PO ONCE 1 day 4 tabs 0RF Z12.11 - Encounter for screening for malignant neoplasm of colon Coding Level of Care Code New Pt Level 3 (55196) Diagnoses Screen for colon cancer Z12.11 Time Spent (min) 40 Comment 30 minutes spent with patient and additional 10 minutes spent reviewing her records
== END 2023-06-29 11:33 | disposition home or self-care (01) ==
PROVIDERS: PCP Student in an Organized Health Care Education/Training Program; Visit Provider Nurse Practitioner Family
DX: Z12.11 Encounter for screening for malignant neoplasm of colon (principal); Z01.818 Encounter for other preprocedural examination
CPT/HCPCS: 99203

== ENCOUNTER → 2023-06-29 10:57 | Outpatient (BNVA) | payer MEDICAID, SELFPAY | PROVIDERS: PCP Student in an Organized Health Care Education/Training Program; Visit Provider Nurse Practitioner Family | DX: Z12.11 Encounter for screening for malignant neoplasm of colon (principal) | CPT/HCPCS: 99212 ==

== ENCOUNTER 2023-07-13 07:19 | Outpatient (REF) | payer MEDICAID, SELFPAY | END 2023-07-13 07:20 | disposition home or self-care (01) | LOC: HO.MAMMO 07:19 | PROVIDERS: PCP Student in an Organized Health Care Education/Training Program; Visit Provider Student in an Organized Health Care Education/Training Program | DX: Z12.31 Encounter for screening mammogram for malignant neoplasm of breast (principal) | CPT/HCPCS: 77063; 77067 ==

== ENCOUNTER → 2023-07-13 07:30 | Outpatient (BNV) | payer MEDICAID, SELFPAY | PROVIDERS: PCP Student in an Organized Health Care Education/Training Program; Visit Provider Radiology Diagnostic Radiology | DX: Z12.31 Encounter for screening mammogram for malignant neoplasm of breast (principal) | CPT/HCPCS: 77063; 77067 ==

== ENCOUNTER 2023-08-24 13:43 | Emergency (ER) | payer OTHER, SELFPAY ==
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
[2023-08-24 15:04] VITALS: BP 185/93; PULSE 96; RESP 20; TEMP 36.5; O2SAT 98; BMI 52.5
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
[2023-08-24] MEDS: Cyclobenzaprine HCl 10 MG TABLET PO (17:57)
[2023-08-24] MEDS: Ketorolac Tromethamine 30 MG/ML VIAL IM (17:58)
[2023-08-24] MEDS: Lidocaine 4 % Patch ADH..PATCH 1 PATCH TRANSDERMA (17:58)
[2023-08-24 19:33] VITALS: BP 149/84; PULSE 66; RESP 18; O2SAT 97
[2023-08-24 19:57] VITALS: BP 144/83; PULSE 72; RESP 18; TEMP 36.5; O2SAT 98
== END 2023-08-24 19:58 | disposition home or self-care (01) ==
PROVIDERS: Emergency Provider Emergency Medicine; PCP Student in an Organized Health Care Education/Training Program
DX: Z04.1 Encounter for examination and observation following transport accident (principal); M25.511 Pain in right shoulder; M25.512 Pain in left shoulder; I10 Essential (primary) hypertension
CPT/HCPCS: 73030; 73110; 73130; 96372; 99284; J1885

== ENCOUNTER 2023-10-12 09:49 | Outpatient (REF) | payer MEDICAID, SELFPAY ==
--- NOTE | ~2023-10-12 | XR_ITS ---
EXAMINATION: XR CHEST CLINICAL INFORMATION: Intense cough COMPARISON: Chest radiograph from 04/25/2019 TECHNIQUE: 2 views of the chest were obtained. FINDINGS: Right basilar radiopacity may reflect atelectasis versus evolving infectious/inflammatory etiology. Slight bronchial thickening. No pneumothorax. Trachea is midline. Cardiac mediastinal silhouette is stable. No large pleural effusion. Degenerative changes of the thoracolumbar spine. Soft tissues are unremarkable. XR/XR chest 2V IMPRESSION: 1. Right basilar radiopacity may reflect atelectasis versus evolving infectious/inflammatory etiology. 2. Slight bronchial thickening.
== END 2023-10-12 09:50 | disposition home or self-care (01) ==
LOC: HO.HHCX 09:49
PROVIDERS: Visit Provider Nurse Practitioner Family
DX: R05.9 Cough, unspecified (principal)
CPT/HCPCS: 71046

== ENCOUNTER 2023-11-21 08:31 | Emergency (ER) | payer MEDICAID, SELFPAY ==
--- NOTE | ~2023-11-21 | XR_ITS ---
EXAMINATION: Lumbar spine and left hip. CLINICAL INDICATION: Left hip pain and low back pain. TECHNIQUE: lumbar spine 3 views. AP pelvis and left hip 3 views. FINDINGS: AP pelvis and left hip: There is normal symmetry of bilateral hip joints and SI joints without any bony erosive changes, fracture or soft tissue abnormality. AP and frog-leg views left hip reveal no loose bodies are bony erosive changes. No acute fracture or dislocation. The left T7 the pubic rami is are normal. The soft tissues are normal. Lumbar spine exam: There is maintained lumbar lordosis. The vertebral heights, alignment and disc heights are normal. No visible acute fracture, dislocation or subluxation seen. The soft tissues are normal. XR/XR lumbar spine 2-3V IMPRESSION: 1. Unremarkable AP pelvis and left hip exam. 2. Unremarkable lumbar spine exam. No visible acute fracture, dislocation or subluxation seen. The soft tissues are normal.
--- NOTE | ~2023-11-21 | XR_ITS ---
EXAMINATION: Lumbar spine and left hip. CLINICAL INDICATION: Left hip pain and low back pain. TECHNIQUE: lumbar spine 3 views. AP pelvis and left hip 3 views. FINDINGS: AP pelvis and left hip: There is normal symmetry of bilateral hip joints and SI joints without any bony erosive changes, fracture or soft tissue abnormality. AP and frog-leg views left hip reveal no loose bodies are bony erosive changes. No acute fracture or dislocation. The left T7 the pubic rami is are normal. The soft tissues are normal. Lumbar spine exam: There is maintained lumbar lordosis. The vertebral heights, alignment and disc heights are normal. No visible acute fracture, dislocation or subluxation seen. The soft tissues are normal. XR/XR hip LT w PEL1V IMPRESSION: 1. Unremarkable AP pelvis and left hip exam. 2. Unremarkable lumbar spine exam. No visible acute fracture, dislocation or subluxation seen. The soft tissues are normal.
[2023-11-21 08:43] VITALS: BP 147/82; PULSE 76; RESP 18; TEMP 36.7; O2SAT 95; BMI 55.5
--- NOTE | 2023-11-21 09:17 | ED.BACK ---
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 She denies any known injury or trauma. No radiation of pain into the abdomen or into the legs. No associated numbness or tingling in the lower extremities. No numbness in the groin. No bowel or bladder incontinence. No fevers or chills. No urinary symptoms. Patient reports she has been taking Motrin, Tylenol, using medicated patches and [id number] topical pain creams with continued pain. She denies any history of previous back injury or back surgery. She also started complaining of some sore throat last evening with no associated upper respiratory symptoms, difficulty breathing, difficulty swallowing. Related Data Home Medications ?Medication ?Instructions ?Recorded ?Confirmed aspirin 81 mg tablet,delayed 1 tab PO DAILY 05/20/22 05/20/22 release baclofen 10 mg tablet 10 mg PO BID PRN Muscle Spasm 05/20/22 05/20/22 fluticasone propionate 110 2 puff inhalation BID 05/20/22 05/20/22 mcg/actuation HFA aerosol inhaler (Flovent HFA) Previous Rx's ?Medication ?Instructions ?Recorded amlodipine 5 mg tablet 5 mg PO DAILY #30 tabs 05/21/22 bisacodyl 5 mg tablet,delayed 20 mg (4 x 5 mg) PO ONCE 1 day #4 06/29/23 release (Dulcolax (bisacodyl)) tabs polyethylene glycol 3350 17 238 g PO ONCE #238 grams 06/29/23 gram/dose oral powder (Miralax) cyclobenzaprine 5 mg tablet 5 mg PO Q8H #7 tabs 08/24/23 lidocaine 5 % topical patch 1 patch topical DAILY #15 ea 08/24/23 (Lidoderm) naproxen 500 mg tablet 500 mg PO Q8-12H PRN pain (scale 08/24/23 score 4-6) #20 tabs cyclobenzaprine 10 mg tablet 10 mg PO TID PRN muscle spasm #15 11/21/23 tabs lidocaine 5 % topical patch 1 patch topical DAILY #15 ea 11/21/23 (Lidoderm) naproxen 500 mg tablet 500 mg PO BID PRN pain #30 tabs 11/21/23 Allergies Allergy/AdvReac Type Severity Reaction Status Date / Time acetaminophen [From PERCOCET] Allergy Unknown NAUSEA & Verified 11/21/23 08:43 VOMITING & DIAPHORESIS oxycodone [From Percocet] Allergy Unknown Verified 11/21/23 08:43 Review of Systems Review of Systems: Yes all other systems are reviewed and are negative Constitutional: Constitutional: Reports no additional constitutional complaints, Denies body ache(s), Denies chills, Denies fever(s), Denies headache(s) and Denies weakness Eyes: Eyes: Reports no additional eye complaints and Denies change in vision ENT: Reports system reviewed and no additional complaints, except as documented, Denies dizziness, Denies headache(s), Denies nasal congestion, Denies nasal discharge, Denies neck pain and Reports sore throat Cardiovascular: Cardiovascular: Reports no additional cardiovascular complaints, Denies chest pain, Denies leg edema and Denies dyspnea Respiratory: Respiratory: Reports no additional respiratory complaints, Denies cough and Denies dyspnea Gastrointestinal: Gastrointestinal: Reports no additional gastrointestinal complaints, Denies abdominal pain, Denies diarrhea, Denies nausea and Denies vomiting Genitourinary: Genitourinary: Reports no additional female genitourinary complaints and Denies urinary incontinence Musculoskeletal: Musculoskeletal: Reports no additional musculoskeletal complaints, Reports back pain, Denies arthralgias, Denies joint swelling, Denies neck pain, Denies numbness and Denies tingling Integumentary/Breasts: Skin/Breast: Reports system reviewed and no additional complaints, except as docu and Denies rash Neurologic: Reports system reviewed and no additional complaints, except as documented, Denies Abnormal speech present, Denies dizziness, Denies headache(s), Denies numbness, Denies tingling and Denies weakness PMFSH Past Medical History Attestation statement: The following information was validated with the patient. Source: old records reviewed and nursing notes reviewed Medical History Morbid obesity HTN (hypertension) Anxiety Asthma Social History Social History Household Members: Significant Other Housing: Apartment Do you presently have visiting nurse or other home services: No Alcohol intake: never Patient Tobacco Use Status: Never used Tobacco Advance Directives: No Advance Directives Information Provided: No service: No Current occupational status: employed Physical Exam Vital Signs: Vital Signs: Last Vital Signs Temp 98.1 F 11/21/23 08:43 Pulse 76 11/21/23 08:43 Resp 18 11/21/23 08:43 BP 147/82 H 11/21/23 08:43 Pulse Ox 95 11/21/23 08:43 O2 Del Method Room Air 11/21/23 08:43 BMI result Body Mass Index 55.5 Const: General: cooperative, healthy appearing, comfortable and no acute distress Orientation/consciousness: patient oriented x3 Limitations: no limitations HEENT: Head: Yes normal to inspection Ears: hearing grossly normal bilaterally and TM's normal bilaterally General nose exam: Normal external nose present Face and sinus: Yes normal facial exam Mouth: Normal oral and palatal mucosa present Throat: Yes posterior oropharynx normal and Yes tonsils normal Eyes: General: appearance normal, both eyes and all related structures Pupils: Equal, round and reactive pupils present Neck: Neck: Yes normal visual inspection, Yes full ROM, Yes no lymphadenopathy and Yes no meningeal signs Chest: Chest palpation & inspection: normal inspection of the chest Resp: Effort & Inspection: normal respiratory effort Auscultation: clear to auscultation bilaterally Cardio: Rate: regular rate Rhythm: regular rhythm Peripheral pulses: Peripheral pulses 2+ throughout GI: Inspection: Yes normal to inspection Palpation (GI): Soft to palpation and nontender Auscultation: normal bowel sounds : General: Yes no CVA tenderness Back/Spine/Pelvis: Other: No midline lumbar tenderness, step-offs or deformities Back: no CVA tenderness Thoracic/Lumbar Spine: thoracic and lumbar spine normal to inspection Sacroiliac joints: on the left tender to palpation Skin: General skin exam: no rashes or lesions noted Neuro: General: patient oriented x3, no meningeal signs, no focal motor deficits and normal sensation to monofilament Cranial nerves: Yes Equal, round and reactive pupils present Cognition (Neuro): normal cognition Speech: No Abnormal speech present Gait exam (Neuro): Normal gait present Motor exam (neuro): 5/5 motor strength present throughout Sensory Exam: Normal double simultaneous stimulation for sensation Deep tendon reflexes (DTR's): Right patellar reflex intensity grade: 2+ and Left patellar reflex intensity grade: 2+ Extrem: General: Yes normal to inspection Course Course Course Narrative: Viral and strep testing is negative. Likely viral syndrome. X-ray show no bony abnormalities. Clinical exam is consistent with sacroiliitis. Patient will be given Toradol here in the emergency room and discharged home with NSAIDs, muscle relaxants and recommendations to follow up with the primary care doctor for any continued symptoms. Medical Decision Making Medical Decision Making [facility] Narrative: 48-year-old female with a history of hypertension, high cholesterol, asthma presents to the ER with complaints of atraumatic left lower back pain which radiates to the left hip since Wednesday evening. She denies any known injury or trauma. No radiation of pain into the abdomen or into the legs. No associated numbness or tingling in the lower extremities. No numbness in the groin. No bowel or bladder incontinence. No fevers or chills. No urinary symptoms. Patient reports she has been taking Motrin, Tylenol, using medicated patches and [id number] topical pain creams with continued pain. She denies any history of previous back injury or back surgery. She also started complaining of some sore throat last evening with no associated upper respiratory symptoms, difficulty breathing, difficulty swallowing. On exam patient has some tenderness on compression over the left SI joint. No midline tenderness. No CVA tenderness. No abdominal pain. Normal neuro exam with no focal deficits. Likely consistent with sacroiliitis. Will obtain x-rays, UA Patient will be managed with at home prescriptions recommendations to follow up with her primary care doctor Also complaining of sore throat with no other URI symptoms. Will send testing for strep, flu/COVID/RSV Differential Diagnosis Differential Diagnoses: The differential diagnosis associated with the presentation includes Strep pharyngitis, viral syndrome, influenza. Low suspicion for FIXED INCOME MANAGER, RPA, Mak's angina, epiglottitis Sacroiliitis Low suspicion for fracture, dislocation, cord compression, cauda equina, epidural abscess, malignancy due to no red flag symptoms, no overt neurological deficits, no reports of injury or trauma Admission/Observation Consideration of admission/observation: Escalation of care including admission/observation considered Low suspicion for fracture, dislocation, cord compression, cauda equina, epidural abscess, malignancy due to no red flag symptoms, no overt neurological deficits, no reports of injury or trauma requiring advanced imaging, urgent consultation and or admission Lab Data MDM Lab Attestation statement: I reviewed the patient's lab results. Labs: Lab Results 11/21/23 Range/Units 09:37 Urine Color Yellow Urine Appearance Clear Urine pH 6.0 (5.0-9.0) Ur Specific [place] 1.015 (1.005-1.025) Urine Protein Negative (Neg-Trace) mg/dL Urine Glucose (UA) Negative (Negative) mg/dL Urine Ketones Negative (Negative) mg/dL Urine Blood Negative (Negative) Urine Nitrite Negative (Negative) Ur Leukocyte Esterase Negative (Negative) Urine Test NEGATIVE (NEGATIVE) Influenza Type A (PCR) NEGATIVE (Negative) Influenza Type B (PCR) NEGATIVE (Negative) RSV RNA Qual (PCR) NEGATIVE (Negative) SARS-CoV-2 RNA (RT-PCR) NEGATIVE (Negative) S. pyogenes GrpA CHITO Negative (Negative) Independent Interpretation I performed an independent interpretation of an: Plain X-Ray Interpretation: I independently viewed the x-ray and agree with the radiology report Radiology Impression Discussion of test interpretation with radiology: I have reviewed the radiologist's reading. Radiologist Impression: [place] [id number] XRay Report Signed Patient: Ebony Chao I MR#: [id number] : 1975 Acct:[id number] Age/Sex: 48 / F ADM Date: 11/21/23 Loc: HO.ED Attending Dr: Ordering Physician: Macie Cole NP Date of Service: 11/21/23 Procedure(s): XR lumbar spine 2-3V Accession Number(s): [id number] cc: Meredith Morris MD; Macie Cole NP~ EXAMINATION: Lumbar spine and left hip. CLINICAL INDICATION: Left hip pain and low back pain. TECHNIQUE: lumbar spine 3 views. AP pelvis and left hip 3 views. FINDINGS: AP pelvis and left hip: There is normal symmetry of bilateral hip joints and SI joints without any bony erosive changes, fracture or soft tissue abnormality. AP and frog-leg views left hip reveal no loose bodies are bony erosive changes. No acute fracture or dislocation. The left T7 the pubic rami is are normal. The soft tissues are normal. Lumbar spine exam: There is maintained lumbar lordosis. The vertebral heights, alignment and disc heights are normal. No visible acute fracture, dislocation or subluxation seen. The soft tissues are normal. XR/XR lumbar spine 2-3V IMPRESSION: 1. Unremarkable AP pelvis and left hip exam. 2. Unremarkable lumbar spine exam. No visible acute fracture, dislocation or subluxation seen. The soft tissues are normal. Tests considered The following testing was considered but not selected: low suspicion for fracture, dislocation, cord compression, cauda equina, epidural abscess, malignancy due to no red flag symptoms, no overt neurological deficits, no reports of injury or trauma requiring advanced imaging Prescription Management I considered prescription management with: Pain Medication Chronic Conditions Patient?s care impacted by: Hypertension Discharge Plan Discharge Clinical Impression: Sacroiliitis Patient Disposition: Home, Self-Care Instructions: Sacroiliitis (ED), Lower Back Exercises (ED) Additional Instructions: Gentle stretching No heavy lifting or bending Take the medications as prescribed Follow-up with your primary care doctor for any continued symptoms Prescriptions: New naproxen 500 mg tablet 500 mg PO BID PRN (Reason: pain) Qty: 30 0RF cyclobenzaprine 10 mg tablet 10 mg PO TID PRN (Reason: muscle spasm) Qty: 15 0RF lidocaine [Lidoderm] 5 % adhesive patch,medicated 1 patch topical DAILY Qty: 15 0RF Rx Instructions: leave on most painful area for up to 12 hrs No Action aspirin 81 mg tablet,delayed release (DR/EC) 1 tab PO DAILY baclofen 10 mg Tablet 10 mg PO BID PRN (Reason: Muscle Spasm) fluticasone propionate [Flovent HFA] 110 mcg/actuation HFA aerosol inhaler 2 puff INHALATION BID amlodipine 5 mg tablet 5 mg PO DAILY Qty: 30 0RF cyclobenzaprine 5 mg tablet 5 mg PO Q8H Qty: 7 0RF lidocaine [Lidoderm] 5 % adhesive patch,medicated 1 patch topical DAILY Qty: 15 0RF Rx Instructions: leave on most painful area for up to 12 hrs naproxen 500 mg tablet 500 mg PO Q8-12H PRN (Reason: pain (scale score 4-6)) Qty: 20 0RF bisacodyl [Dulcolax (bisacodyl)] 5 mg tablet,delayed release (DR/EC) 20 mg PO ONCE 1 Days Qty: 4 0RF Rx Instructions: take 4 tabs at noon the day before your colonoscopy polyethylene glycol 3350 [Miralax] 17 gram/dose powder 238 g PO ONCE Qty: 238 0RF Rx Instructions: As directed by gastroenterology department at [facility] Referrals: Meredith Morris MD [Primary Care Provider] - 1 week Print Language: Chilean
[2023-11-21 09:44] LABS: Appearance Urine Clear; Color Urine Yellow; Glucose Urine UA Negative (Negative); Leukocyte Esterase Urine Negative (Negative); Nitrite Urine Negative (Negative); Specific Gravity - Urine 1.015 (1.005-1.025); Urine Blood Negative (Negative); Urine Ketones Negative (Negative); Urine Protein Negative (Neg-Trace)
[2023-11-21 09:47] LABS: UPreg QC Valid YES; Urine Pregnancy NEGATIVE (NEGATIVE)
[2023-11-21 09:51] LABS: IDNOW Serial# 6674DD1D; Strep A Nucleic Acid Negative (Negative)
[2023-11-21 10:26] LABS: Influenza A PCR NEGATIVE (Negative); Influenza B PCR NEGATIVE (Negative); Resp Syncy Virus RNA Qual PCR NEGATIVE (Negative); SARS COV2 PCR INHOUSE NEGATIVE (Negative)
[2023-11-21] MEDS: Ketorolac Tromethamine 30 MG/ML VIAL IM (11:37)
[2023-11-21 11:43] VITALS: BP 174/90; PULSE 63; RESP 20; TEMP 36.6; O2SAT 98
== END 2023-11-21 11:45 | disposition home or self-care (01) ==
PROVIDERS: Nurse Practitioner Family; Emergency Provider Emergency Medicine; PCP Student in an Organized Health Care Education/Training Program
DX: M46.1 Sacroiliitis, not elsewhere classified (principal); J02.9 Acute pharyngitis, unspecified; M54.50 Low back pain, unspecified; M25.552 Pain in left hip; Z79.899 Other long term (current) drug therapy; Z03.818 Encounter for observation for suspected exposure to other biological agents ruled out
CPT/HCPCS: 0241U; 72100; 73502; 81003; 81025; 87651; 96372; 99283; 99284; J1885

== ENCOUNTER 2024-07-17 07:23 | Outpatient (REF) | payer MEDICAID, SELFPAY | END 2024-07-17 07:24 | disposition home or self-care (01) | LOC: HO.MAMMO 07:23 | PROVIDERS: PCP Student in an Organized Health Care Education/Training Program; Visit Provider Student in an Organized Health Care Education/Training Program | DX: Z12.31 Encounter for screening mammogram for malignant neoplasm of breast (principal) | CPT/HCPCS: 77063; 77067 ==

== ENCOUNTER → 2024-07-17 07:45 | Outpatient (BNV) | payer MEDICAID, SELFPAY | PROVIDERS: PCP Student in an Organized Health Care Education/Training Program; Visit Provider Internal Medicine | DX: Z12.31 Encounter for screening mammogram for malignant neoplasm of breast (principal) | CPT/HCPCS: 77063; 77067 ==

== ENCOUNTER 2024-12-19 06:36 | Outpatient (REF) | payer MEDICAID, SELFPAY ==
--- OUTSIDE RECORDS SUMMARY | 2024-12-14 13:15 | XMS_ITS | Encounter Summary ---
Author Organization [employer] Address [address] [facility] [address] [place] [address] Care Team Providers Care Parking Cashier Name Role Phone Ailyn Smart CNP Primary Care Provider [phone] Reason for Referral * Consultation (Routine) - Authorized Specialty Diagnoses / Procedures Referred By Destiny swain Referred To Contact Gastroenterology Diagnoses Encounter for screening for malignant neoplasm of colon Ailyn Smart CNP [address] [place] [address] Phone: tel: fax: [facility] [address] [place] [address] Phone: tel: fax: Referral ID Status Reason Start Date Expiration Date Visits Requested Visits Authorized [id number] Authorized Specialty Services Required 12/15/2024 12/15/2025 6 6 Encounter Details Date Type Department Care Team (Late st Contact Info) Description 12/14/2024 1:15 PM EDT Office Visit [facility] [address] [place] [address] Ailyn Smart CNP [address] [place] [address] Encounter to establish care (Primary Dx); Encounter for screening for malignant neoplasm of colon; Type 2 diabetes mellitus without complication, without long-term current use of insulin (CMS/HCC); Mild intermittent asthma with acute exacerbation; Essential (primary) hypertension; Acute swimmer's ear of left side; Encounter for immunization; Dietary counseling; Exercise counseling; Class 3 severe obesity due to excess calories with serious comorbidity and body mass index (BMI) of 50.0 to 59.9 in adult; RUQ pain Social History Tobacco Use Types Packs/Day Years Used Date Smoking Tobacco: Never Passive Smoke Exposure: Never Smokeless Tobacco: Never Alcohol Use Standard Drinks/Week Comments Never 0 (1 standard drink = 0.6 oz pur e alcohol) Depression Answer Date Recorded Patient Health Questionnaire-9 Score 2 12/14/2024 Patient Health Questionnaire-9 Score 2 12/14/2024 Last PHQ-9: Questionnaire Data Not on file 0 12/14/2024 Housing Stability Answer Date Recorded What is your housing situation today? I have abundio walsh 12/14/[address] you li ve. Do you have problems with any of the following? None of the above 12/14/2024 Food Insecurity Answer Date Recorded Within the past 12 months, y ou worried that your food would run out before you got money to buy more: Never True 12/14/2024 Within the past 12 months,th e food you bought just didn't last and you didn't have enough money to get more: Never True Transportation Answer Date Recorded In the past 12 months, has l ack of transportation kept you from medical appts, meetings, work or from getting things needed for daily living? No 12/14/2024 Utilities Answer Date Recorded In the past 12 months, has t he electric, gas, oil or water company threatened to shut off services in your home? No 12/14/2024 Depression Answer Date Recorded Patient Health Questionnaire-2 Score 0 12/14/2024 Internet Access Answer Date Recorded Internet Access Q1 Yes 12/14/2024 Internet Access Q2 Not on file 12/14/2024 Comments Unknown Intention Date Recorded No desire to become (finding) 0 12/14/2024 Sex and Gender Information Value Date Recorded Sex Assigned at Female 02/16/2022 10:14 AM EDT Legal Sex Female 10:14 AM EDT Gender Identity Female 02/16/2022 10:14 AM EDT Sexual Orientation Straight 02/16/2022 10 :14 AM EDT documented as of this encounter Last Filed Vital Signs Vital Sign Reading Time Taken Comments Blood Pressure 160/86 12/14/2024 1:22 PM EDT Pulse 84 12/14/2024 1:22 PM EDT Temperature 36.4 C (97.6 F) 12/14/2024 1:22 PM EDT Respiratory Rate 20 12/14/2024 1:22 PM EDT Oxygen Saturation 99% 12/14/2024 1:22 PM EDT Inhaled Oxygen Concentration - - Weight 144 kg (318 lb) 12/14/2024 1:22 PM EDT Height 158 cm (5' 2.21 ) 12/14/2024 1:22 PM EDT Body Mass Index 57.77 12/14/2024 1:22 PM EDT documented in this encounter Functional Status * Over the past 2 weeks, how often have you been bothered by any of the following problems? Question Answer Date of Assessment Author Patient Health Questionnaire -2 Score 0 12/14/2024 1:31 PM EDT Rj Whitaker MA * Little interest or pleasure in doing things Answer Date of Assessment Author Not at all 12/14/2024 1:31 PM EDT [employer] Jennifer leonardo MA * Feeling down, depressed, or hopeless Answer Date of Assessment Author Not at all 12/14/2024 1:31 PM EDT [employer] Jennifer leonardo [place] * Trouble falling or staying asleep, or sleeping too much Answer Date of Assessment Author Not at all 12/14/2024 1:31 PM EDT [employer] Jennifer leonardo [place] * Feeling tired or having little energy Answer Date of Assessment Author Several days 12/14/2024 1:31 PM EDT [employer] Jennifer leonardo MA * Poor appetite or overeating Answer Date of Assessment Author Not at all 12/14/2024 1:31 PM EDT [employer] Jennifer leonardo MA * Feeling bad about yourself - or that you are a failure or have let yourself or your family down Answer Date of Assessment Author Several days 12/14/2024 1:31 PM EDT [employer] Jennifer leonardo MA * Trouble concentrating on things, such as reading the newspaper or watching television Answer Date of Assessment Author Not at all 12/14/2024 1:31 PM EDT [employer] Jennifer leonardo MA * Moving or speaking so slowly that other people could have noticed? Or the opposite - being so fidgety or restless that you have been moving around a lot more than usual. Answer Date of Assessment Author Not at all 12/14/2024 1:31 PM EDT Jennifer Larsen MA * Thoughts that you would be better off or hurting yourself in some way Answer Date of Assessment Author Not at all 12/14/2024 1:31 PM EDT Jennifer Larsen MA * Patient Health Questionnaire-9 Score Answer Date of Assessment Author 2 12/14/2024 1:31 PM EDT Jennifer Larsen MA * How difficult have these problems made it for you to do your work, take care of things at home, or get along with other people? Answer Date of Assessment Author Not difficult at all 12/14/2024 1:31 PM EDT Jennifer Siegel MA * Over the last 2 weeks, how often have you been bothered by any of the following problems? Question Answer Date of Assessment Author Feeling nervous, anxious, or on edge 0 12/14/2024 1:31 PM EDT Rj Whitaker MA Not being able to stop or control worrying 0 12/14/2024 1:31 PM EDT Rj Whitaker MA Worrying too much about different things 0 12/14/2024 1:31 PM EDT Rj Whitaker MA Trouble relaxing 0 12/14/2024 1:31 PM EDT Jennifer Kebede MA Being so restless that it is hard to sit still 0 12/14/2024 1:31 PM EDT Rj Whitaker MA Becoming easily annoyed or irritable 0 12/14/2024 1:31 PM EDT jR Whitaker MA Feeling afraid as if somethi ng awful might happen 0 12/14/2024 1:31 PM EDT Rj Whitaker MA KYRA-7 Total Score 0 12/14/2024 1:31 PM EDT Jennifer Whitaker MA documented as of this encounter Progress Notes * Ailyn Smart CNP - 12/14/2024 1:15 PM EDT Patient ID: Ebony Jama is a 49 y.o. female. Subjective: Ebony Jama is a 49 y.o. female who presents to the office for a transfer patient visit. Previous PCP Meredith Morris MD Interim history: Referred to allergy d/t angioedema after stung by jellyfish. Pt also has sensitivity to percocet inthe past but no known drug allergies. Pt following with general surgery for left buttock skin lesion, scheduled for removal and biopsy tomorrow 12/15. Current concerns: 1.RUQ Pain - Describes intermittent pain in the right upper quadrant of the abdomen, occurring on and off, sometimes a couple of days per week. Pain is aggravated by bending over, but is not present all the time. When pressing on the area, does not always feel pain. Pain does not worsen after eating and occurs randomly. - Denies any changes in bowel movements and denies blood in stool. - Reports a history of fatty liver diagnosed approximately two years ago. 2.Asthma - Has asthma, uses inhaler as needed, with increased frequency during weather changes (up to 2-3 times per day). Sometimes goes days without needing the inhaler. Experienced a severe asthma episode about two weeks ago, with nighttime waking due to symptoms. Does not use a daily maintenance inhaler. - Had pneumonia recently, which led to cancellation of a previously scheduled appointment. 3. Elevated blood glucose - Reports elevated blood sugar and a diagnosis of diabetes. Previously took metformin for diabetes management. Expresses concern about finger pricks required for glucose monitoring, prefers assistance with this task. Mother has diabetes. - Owns and knows how to use a blood glucose monitor. - Attempts to reduce intake of sweets, bread, and rice. - Interested in weight loss injections, noting that her sister lost 70 lbs with such medication. Inquires about the process and side effects, aware that stomach upset may occur if overeating. 4. Hypertension - Has a history of hypertension, currently takes hydrochlorothiazide 25 mg, with the most recent dose taken at noon. Previously used amlodipine, discontinued in 2022. No confusion about current medications. Takes aspirin 81 mg regularly. - Owns and uses a blood pressure cuff at home to monitor blood pressure. - Reports discontinuation of cholesterol medication, reason not specified. 5. Ear itchiness - Recently traveled to [place], went to the beach, and has experienced ear itchiness since then. Uses headphones (AirPods) frequently at work, which she associates with increased ear itchiness and wax production. Problem List[1] Surgical History[2] Family History[3] Social History Diet/exercise: none right now, reports she eats a lot of sweets Substance use: denies all substance use DERMATOLOGY NURSE: Menstrual periods are present and regular, occurring every month, lasting about 4 days, with only one day of heavier flow. No significant menstrual concerns reported. - Sexually active with male partner ( for two years). No concerns about sexually transmitteddiseases, no recent change in partner. Declines testing for sexually transmitted diseases. Contraception: not seeking , declines wanting anything for contraception right now. Reports she avoids intercourse when she is ovulating. Mental health: Patient Health Questionnaire-9 Score: 2 (12/14/2024 1:31 PM) Patient Health Questionnaire-2 Score: 0 (12/14/2024 1:31 PM) Thoughts that you would be better off or hurting yourself in some way: Not at all (12/14/2024 1:31 PM) KYRA-7 Total Score: 0 (12/14/2024 1:31 PM) Health maintenance - Last pap smear was a long time ago. Underwent a biopsy more than 8-10 years ago due to menstrual problems, found the procedure very painful. No history of malignant findings. - Last mammogram 4 months ago reports it was normal- [facility] -never had colonoscopy - No recent COVID or flu vaccines received. Interested in pneumococcal vaccine due to asthma. -Optometry: Yes [facility], vision -Dentist: Yes [facility] Allergies[4] Review of Systems see HPI Vitals: 12/14/24 1322 BP: (!) 160/86 BP Location: Right arm Patient Position: Sitting BP Cuff Size: Large adult Pulse: 84 Resp: 20 Temp: 97.6 ??F (36.4 ??C) TempSrc: Oral SpO2: 99% Weight: 318 lb (144 kg) Height: 5' 2.21 (1.58 m) Physical Exam Constitutional: General: She is not in acute distress. Appearance: Normal appearance. She is not ill-appearing. HENT: Head: Normocephalic and atraumatic. Right Ear: Tympanic membrane, ear canal and external ear normal. There is no impacted cerumen. Left Ear: Tympanic membrane and external ear normal. There is no impacted cerumen. Ears: Comments: +mild erythema in l ear canal Nose: No congestion or rhinorrhea. Mouth/Throat: Mouth: Mucous membranes are moist. Pharynx: No oropharyngeal exudate or posterior oropharyngeal erythema. Eyes: General: No scleral icterus. Right eye: No discharge. Left eye: No discharge. Extraocular Movements: Extraocular movements intact. Pupils: Pupils are equal, round, and reactive to light. Cardiovascular: Rate and Rhythm: Normal rate and regular rhythm. Pulses: Normal pulses. Heart sounds: Normal heart sounds. No murmur heard. No friction rub. No gallop. Pulmonary: Effort: Pulmonary effort is normal. No respiratory distress. Breath sounds: Normal breath sounds. No stridor. No wheezing, rhonchi or rales. Chest: Chest wall: No tenderness. Abdominal: General: Abdomen is flat. Bowel sounds are normal. There is no distension. Palpations: Abdomen is soft. There is hepatomegaly. There is no mass. Tenderness: There is abdominal tenderness in the right upper quadrant. There is no guarding. Musculoskeletal: General: Normal range of motion. Cervical back: Normal range of motion and neck supple. No tenderness. Right lower leg: No edema. Left lower leg: No edema. Lymphadenopathy: Cervical: No cervical adenopathy. Skin: General: Skin is warm and dry. Capillary Refill: Capillary refill takes less than 2 seconds. Neurological: General: No focal deficit present. Mental Status: She is alert and oriented to person, place, and time. Psychiatric: Mood and Affect: Mood normal. Behavior: Behavior normal. Thought Content: Thought content normal. Judgment: Judgment normal. Problem List Items Addressed This Visit Asthma Relevant Medications montelukast (Singulair) 10 MG tablet Mometasone Furoate (Asmanex HFA) 100 MCG/ACT aerosol - Prescribed a maintenance inhaler for asthma, to be used twice daily (morning and night), to reduce reliance on albuterol and decrease nocturnal symptoms. Continue albuterol inhaler as needed for acute symptoms. - Administered pneumococcal vaccine during today's visit for respiratory disease prevention, given history of asthma. Other Visit Diagnoses RUQ Pain - Ordered comprehensive blood work including liver function tests to evaluate for underlying metabolic or hepatic abnormalities. - Referred for colonoscopy and endoscopy to address intermittent right upper quadrant pain and to complete colon cancer screening. Both procedures will be scheduled, and results will be reviewed uponcompletion. Encounter to establish care - Primary Relevant Orders Lipid Panel, Standard Hemoglobin A1c CBC auto differential Comprehensive Metabolic Panel TSH W/Reflex to FT4 HIV-1/2 Antigen and Antibodies, Fourth Generation, with Reflexes Hepatitis C Antibody with Reflex to HCV, RNA, Quantitative, Real-Time PCR Hepatitis B Surface Antibody, Qualitative Hepatitis B Core Antibody, Total Hepatitis B surface antigen, EIA POCT A1c (Completed) POCT glucose manually resulted (Completed) Encounter for screening for malignant neoplasm of colon Relevant Medications bisacodyl (Dulcolax) 5 MG EC tablet Other Relevant Orders Referral to Gastroenterology Type 2 diabetes mellitus without complication, without long-term current use of insulin (CMS/HCC) Relevant Medications metFORMIN (Glucophage) 500 MG tablet Tirzepatide-Weight Management (Zepbound) 2.5 MG/0.5ML solution auto-injector - Prescribed metformin, to be taken orally twice daily (one pill in the morning and one at night), for management of newly diagnosed diabetes. Initiate therapy today. - Prescribed a blood glucose monitoring kit to facilitate home monitoring of blood glucose levels. Instructed to check glucose regularly, especially in relation to meals, to assess medication efficacy. - Initiated prior authorization process for a GLP-1 agonist weight loss injection, to be administered once weekly. Advised that approval may take time depending on insurance. Discussed expected side effects, primarily gastrointestinal upset, and recommended avoidance of overeating to minimize nausea and vomiting. Will maintain at a diabetic-appropriate maintenance dose. - Provided dietary counseling to reduce intake of sweets, white rice, and white bread. Advised to cut portions of bread and rice in half rather than complete elimination. - Recommended initiation of regular physical activity, specifically 20-30 minutes of light walking daily, to assist with glycemic control and overall health. Essential (primary) hypertension Relevant Medications amLODIPine (Norvasc) 5 MG tablet Other Relevant Orders Albumin, Random Urine W/Creatinine - Prescribed amlodipine to be added to current antihypertensive regimen (hydrochlorothiazide 25 mg), for improved blood pressure control. Continue current hydrochlorothiazide dose. Continue aspirin 81 mg daily for cardiovascular protection. - Will await updated cholesterol panel from today's labs before considering re- initiation of cholesterol-lowering therapy. Will contact patient if restart is indicated. Acute swimmer's ear of left side Relevant Medications acetic acid-hydrocortisone (Vosol-HC) otic solution - Prescribed eardrops for management of ear itchiness. Advised discontinuation of AirPods use to reduce ear canal irritation and wax buildup. Encounter for immunization Relevant Orders PCV-20 VACCINE 6 wks + (Completed) Dietary counseling Relevant Medications metFORMIN (Glucophage) 500 MG tablet Tirzepatide-Weight Management (Zepbound) 2.5 MG/0.5ML solution auto-injector Exercise counseling Relevant Medications metFORMIN (Glucophage) 500 MG tablet Tirzepatide-Weight Management (Zepbound) 2.5 MG/0.5ML solution auto-injector Class 3 severe obesity due to excess calories with serious comorbidity and body mass index (BMI) of50.0 to 59.9 in adult Relevant Medications metFORMIN (Glucophage) 500 MG tablet Tirzepatide-Weight Management (Zepbound) 2.5 MG/0.5ML solution auto-injector Dietary Recommendations: Fruits, vegetables, whole grains, protein foods, and fat-free or low-fat dairy products are healthychoices. Eat different types of protein foods in your diet. This can include seafood, lean meats, poultry, beans, peas, lentils, nuts, seeds, soy products, and eggs. Limit foods and beverages higher in added sugars, saturated fat, and sodium. Exercise Recommendations: At least 150 minutes of moderate-intensity physical activity per week, or an equivalent combinationof moderate- and vigorous-intensity activity Scheduled follow-up appointment in 3 months to reassess glycemic control and review laboratory results. This note was drafted using Ambient (AI) technology. The patient/patient's guardian has been informed and has consented to the use of this technology: Yes [1] Patient Active Problem List Diagnosis Asthma Morbid obesity (CMS/HCC) HTN (hypertension) Good's palsy Elevated hemoglobin A1c Abdominal discomfort Acute bilateral low back pain with left-sided sciatica Angioedema of lips Sacroiliitis (CMS/HCC) [2] No past surgical history on file. [3] Family History Problem Relation Name Age of Onset Cancer Mother Prostate cancer Father [4] Allergies Allergen Reactions Oxycodone documented in this encounter Plan of Treatment Scheduled Orders Name Type Priority Associated Diagnoses Orde r Schedule Lipid Panel, Standard Lab Routine Encounter to establish care Expected: 12/14/2024 (Approximate), Expires: 12/14/2025 Hemoglobin A1c Lab Routine Encounter to establish care Expected: 12/14/2024 (Approximate), Expires: 12/14/2025 CBC auto differential Lab Routine Encounter to establish care Expected: 12/14/2024 (Approximate), Expires: 12/14/2025 Comprehensive Metabolic Panel Lab Routine Encounter to establish care Expected: 12/14/2024 (Approximate), Expires: 12/14/2025 TSH W/Reflex to FT4 Lab Routine Encounter to establish care Expected: 12/14/2024 (Approximate), Expires: 12/14/2025 HIV-1/2 Antigen and Antibodies, Fourth Generation, with Reflexes Lab Routine Encounter to establish care Expected: 12/14/2024 (Approximate), Expires: 12/14/2025 Hepatitis C Antibody with Reflex to HCV, RNA, Quantitative, Real-Time PCR Lab Routine Encounter to establish care Expected: 12/14/2024, Expires: 12/14/2025 Hepatitis B Surface Antibody, Qualitative Lab Routine Encounter to establish care Expected: 12/14/2024 (Approximate), Expires: 12/14/2025 Hepatitis B Core Antibody, Total Lab Routine Encounter to establish care Expected: 12/14/2024 (Approximate), Expires: 12/14/2025 Hepatitis B surface antigen, EIA Lab Routine Encounter to establish care Expected: 12/14/2024 (Approximate), Expires: 12/14/2025 Albumin, Random Urine W/Creatinine Lab Routine Essential (primary) hypertension Expected: 12/14/2024 (Approximate), Expires: 12/14/2025 Scheduled Referrals Name Type Priority Associated Diagnoses Order Schedule Referral to Gastroenterology Outpatient Referral Routine Encounter for screening for malignant neoplasm of colon Expected: 12/14/2024 (Approximate), Expires: 12/14/2025 documented as of this encounter Procedures Procedure Name Priority Date/Time Associated Diagnosis Comments POCT GLYCATED HEMOGLOBIN, TOTAL Routine 12/14/2024 2:18 PM EDT Encounter to establish care POCT GLUCOSE Routine 12/14/2024 2:17 PM EDT Encounter to establish care documented in this encounter Results * (ABNORMAL) POCT A1c (12/14/2024 2:18 PM EDT) Hemoglobin A1C 8.1(A) 4.0 - 5.7 % QC Media Lot # Comment:[id number] Lot# Expiration Date Comment:07/24/2026 Blood 12/14/2024 2:1 8 PM EDT Result [facility] POINT OF CARE TEST ENTER/ EDIT ORDERABLES Final Result * (ABNORMAL) POCT glucose manually resulted (12/14/2024 2:17 PM EDT) Glucose Blood, POC 227(A) 60 - 200 mg/dL QC Media Lot # Comment:[id number] Lot# Expiration Date Comment:04/07/2025 Blood Capillary blood specimen / Unknown 12/14/2024 2:17 PM EDT Result [facility] POINT OF CARE TEST ENTER/ EDIT ORDERABLES Final Result documented in this encounter Visit Diagnoses Diagnosis Encounter to establish care- Primary Encounter for screening for malignant neoplasm of colon Type 2 diabetes mellitus without complication, without long-term current use of insulin ([facility]) Mild intermittent asthma with acute exacerbation Essential (primary) hypertension Unspecified essential hypertension Acute swimmer's ear of left side Encounter for immunization Dietary counseling Dietary surveillance and counseling Exercise counseling Class 3 severe obesity due to excess calories with serious comorbidity and body mass index (BMI) of 50.0 to 59.9 in adult RUQ pain Abdominal pain, right upper quadrant documented in this encounter Additional Health Concerns Assessment Noted Time PHQ-9 Depression Total Score: 2 12/15/19 25 1:31 PM EDT documented as of this encounter Care Teams Parking Cashier Relationship Specialty Start Date End Date Ailyn Smart CNP [address] [place] [id number] PCP - General Family Medicine 8/8/25 documented as of this encounter
--- OUTSIDE RECORDS SUMMARY | 2024-12-19 06:39 | XMS_ITS | Clinical Summary ---
Author Organization [address] [facility] Address [address] [place] [address] Phone Care Team Providers Care Funeral Service Manager Name Role Phone Unavailable Primary Care Provider Unavailabl e Allergies Active Allergy Reactions Criticality Noted Date Comments Oxycodone 12/31/2011 Medications amLODIPine (NORVASC) 5 mg tablet Take 1 tablet (5 mg total) by mouth 1 (one) time each day in the morning. 4 Active aspirin 81 mg EC tablet Take 1 tablet (81 mg total) by mouth 1 (one) time each day. 4 Active cetirizine (ZyrTEC) 10 mg tablet Take 1 tablet (10 mg total) by mouth daily. 2 Active cyclobenzaprine (FLEXERIL) 10 mg tablet Take 1 tablet (10 mg total) by mouth 3 times daily. 5 Active hydroCHLOROthia zide (HYDRODIURIL) 25 mg tablet TAKE 1 TABLET BY MOUTH EVERY DAY ONE DOSE 3 Active fluticasone HFA (FLOVENT HFA) 110 mcg/actuation inhaler Inhale 2 puffs by mouth every 12 (twelve) hours if needed. 5 Active fluticasone propionate (FLONASE) 50 mcg/actuation nasal spray Administer 1 spray into each nostril daily. 2 Active famotidine (PEPCID) 20 mg tablet Take 1 tablet (20 mg total) by mouth 2 (two) times a day. 5 Active diclofenac (VOLTAREN) 1 % topical gel APPLY 1 INCH TOPICALLY IN THE MORNING AND AT BEDTIME NEEDED FOR PAIN 5 Active Ventolin HFA 90 mcg/actuation inhaler INHALE 2 PUFFS POR V A ORAL EVERY 4 HOURS IF NEEDED FOR WHEEZING. Active acetaminophen (TYLENOL) 500 mg tablet TAKE 1-2 TABLET BY ORAL ROUTE EVERY 6-8 HOURS NEEDED NEEDED FOR PAIN 5 Active loratadine (CLARITIN) 10 mg tablet Take 1 tablet (10 mg total) by mouth daily. 5 01/24/20 25 Active naproxen (NAPROSYN) 500 mg tablet take 1 tablet (500 mg) orally 2 times a day as needed for pain Active predniSONE (DELTASONE) 20 mg tablet 2 tabs po daily for 5 days 9 Active simvastatin (ZOCOR) 20 mg tablet Take 1 tablet (20 mg total) by mouth 1 (one) time each day in the evening. 4 Active Encounters Date Type Department Care Team Description 10/30/2024 8:00 AM EDT Consult General Surgery [address] [id number] Gray Valdovinos MD Neoplasm of uncertain behavior of skin 10/30/2024 Telephone General Surgery [address] [address] Gray Valdovinos MD from Last 3 Months Medical History Medical History Date Comments Malignant neoplasm of skin of face DX:Malignant neoplasm of skin of face History of basal cell carcinoma of skin 8 DX:History of basal cell carcinoma of skin; COMMENT: Left nasal alar - surgically excised Hypertension 05/13/2017 DX:Hypertension Family History Medical History Relation Name Comments Melanoma Father Relation Name Status Comments Father Social History Tobacco Use Types Packs/Day Years Used Date Smoking Tobacco: Never Smokeless Tobacco: Never Alcohol Use Standard Drinks/Week Comments Not Currently 0 (1 standard drink = 0.6 oz pur e alcohol) Comments Unknown Sex and Gender Information Value Date Recorded Sex Assigned at Not on file Legal Sex Female 6:50 PM EST Gender Identity Not on file Sexual Orientation Not on file Obstetrics History Last Filed Vital Signs Vital Sign Reading Time Taken Comments Blood Pressure 150/99 10/30/2024 8:08 AM EDT Pulse 83 10/30/2024 8:08 AM EDT Temperature 36.1 C (96.9 F) 10/30/2024 8:08 AM EDT Respiratory Rate - - Oxygen Saturation - - Inhaled Oxygen Concentration - - Weight 142 kg (312 lb 12.8 oz) 10/30/2024 8:08 A M EDT Height 162.6 cm (5' 4 ) 10/30/2024 8:08 AM EDT Body Mass Index 53.69 10/30/2024 8:08 AM EDT Plan of Treatment Upcoming Encounters Date Type Department Care Team (Late st Contact Info) Description 02/09/2025 10:30 AM EDT Procedure visit General Surgery - [address] [place] [address] Gray Valdovinos MD [address] [place] [phone] Health Maintenance Due Date Last Done Comments Breast Cancer Screening 1975 Hepatitis B Vaccines (1 of 3 - 19+ 3-dose series) 01/05/1995 Cervical Cancer Screening: Pap Smear 01/05/1997 Pneumococcal Vaccine: Pediatrics (0 to 5 Years) and At-Risk Patients (6 to 49 Years) (2 of 2 - PCV) 08/16/2018 08/16/2017 Depression Screening 04/19/2024 COVID-19 Vaccine ( season) 2024 03/13/2024, 03/16/2023, 04/22/2022, Additional history exists Colorectal Cancer Screening: Colonoscopy 09/26/2024 HIV Screening 09/26/2024 Hepatitis C Screening 09/26/2024 Hypertension/CHF/CAD Annual BMP Blood Test 09/26/2024 Social Influencers of Health Screening 09/26/2024 Influenza Vaccine (#1) 2024 , 02/17/2023, 01/13/2022, Additional history exists Cholesterol Screening (Lipid Panel) 11/11/2026 11/11/2021 DTaP,Tdap,and Td Vaccines (3 - Td or Tdap) 03/04/2032 03/04/2022, 01/21/2017 HIB Vaccines Aged Out No longer eligi ble based on patient's age to complete this topic HPV Vaccines Aged Out No longer eligi ble based on patient's age to complete this topic Hepatitis A Vaccines Aged Out No long er eligible based on patient's age to complete this topic IPV Vaccines Aged Out No longer eligi ble based on patient's age to complete this topic MMR Vaccines Aged Out No longer eligi ble based on patient's age to complete this topic Meningococcal ACWY Vaccine Aged Out N o longer eligible based on patient's age to complete this topic Meningococcal B Vaccine Aged Out No l onger eligible based on patient's age to complete this topic RSV Immunization Patients Under 20 months Aged Out No longer eligible based on patient's age to complete this topic Varicella Vaccines Aged Out No longer eligible based on patient's age to complete this topic Insurance MEDICAID - [place]
--- OUTSIDE RECORDS SUMMARY | 2024-12-19 06:39 | XMS_ITS | Encounter Summary ---
Author Organization [employer] [employer] Address [address] [facility] [address] [place] [address] Care Team Providers Care Cornetist Name Role Phone Ailyn Smart CNP Primary Care Provider [phone] Reason for Visit * Reason Comments Med Change Request Encounter Details Date Type Department Care Team ([facility] st Contact Info) Description 12/16/2024 Refill [facility] [address] [place] [address] Ailyn Smart CNP [address] [place], [place] [phone] Mild intermittent asthma with acute exacerbation Social History Tobacco Use Types Packs/Day Years [...] Q2 Not on file 12/14/2024 Comments Unknown Sex and Gender Information Value Date Recorded Sex Assigned at Female 02/16/2022 10:14 AM EDT Legal Sex Female 10:14 AM EDT Gender Identity Female 02/16/2022 10:14 AM EDT Sexual Orientation Straight 02/16/2022 10 :14 AM EDT documented as of this encounter Plan of Treatment Not on file documented as of this encounter Visit Diagnoses Diagnosis Mild intermittent asthma with acute exacerbation documented in this encounter Additional Health Concerns Assessment Noted Time PHQ-9 Depression Total Score: 2 12/15/19 1:31 PM EDT documented as of this encounter Care Teams Cornetist Relationship Specialty Start Date End Date Ailyn Smart CNP [address] [place] [id number] PCP - General Family Medicine 11/24/24 documented as of this encounter
--- OUTSIDE RECORDS SUMMARY | 2024-12-19 06:39 | XMS_ITS | Clinical Summary ---
Author Organization [employer] Address [address] [facility] [address] [place] [address] Care Team Providers Care Senior Investment Manager Name Role Phone Ailyn Smart CNP Primary Care Provider [phone] Allergies Active Allergy Reactions Criticality Noted Date Comments Oxycodone 12/31/2011 Medications cetirizine (ZyrTEC) 10 MG tablet Take 1 tablet by mouth 1 (one) time each day. 022 Active fluticasone (Flonase Allergy Relief) 50 MCG/ACT nasal sprayIndication s:Left acute otitis media Administer 1 spray into each nostril in the morning. Shake gently. Before first use, prime pump. After use, clean tip and replace cap. 16 g 1 022 Active terbinafine (LamISIL AT) 1 % cream Apply topically 2 times daily. 42 g 3 023 Active Additional Information Patient not taking.Reported on 12/14/2024 Blood Glucose Monitoring Suppl (FreeStyle Lite) w/Device kit 1 kit in the morning. 1 kit 023 Active FREESTYLE LITE test strip Check blood glucose once daily 50 each 12 Active FreeStyle lancets 1 each by Other route in the morning. Check blood glucose 50 each 023 Active Alcohol Swabs (Alcohol Prep) pads Check BG once daily 100 each 023 Active hydroCHLOROthia zide (HYDRODiuril) 25 MG tablet TAKE 1 TABLET BY MOUTH EVERY DAY ONE DOSE 30 tablet 5 023 Active naproxen (Naprosyn) 500 MG tablet TAKE 1 TABLET BY MOUTH TWICE A DAY 60 tablet Active Aspirin Low Dose 81 MG EC tablet TAKE 1 TABLET BY MOUTH EVERY DAY 90 tablet 2 Active simvastatin (Zocor) 20 MG tablet TAKE 1 TABLET BY MOUTH EVERY DAY IN THE EVENING 90 tablet 1 Active oxymetazoline (Afrin Nasal [place]) 0.05 % nasal spray Administer 2 sprays into each nostril every 12 (twelve) hours if needed for congestion for up to 2 days. Do not use for more than 3 days. 30 mL Active Additional Information Patient not taking.Reported on 12/14/2024 Ventolin HFA 108 (90 Base) MCG/ACT inhaler INHALE 2 PUFFS EVERY 4 HOURS IF NEEDED FOR WHEEZING. 18 g 3 Active Diclofenac Sodium 1 % gel APPLY 1 INCH TOPICALLY IN THE MORNING AND AT BEDTIME NEEDED FOR PAIN 100 g Active famotidine (Pepcid) 20 MG tablet TAKE 1 TABLET BY MOUTH TWICE A DAY 180 tablet Active Additional Information Patient not taking.Reported on 12/14/2024 albuterol (2.5 MG/3ML) 0.083% nebulizer solution Take 3 mL (2.5 mg) by nebulization every 6 (six) hours if needed for wheezing or shortness of breath. 75 mL 1 025 2025 Active predniSONE (Deltasone) 20 MG tablet 2 tabs po daily for 5 days 10 tablet Active Additional Information Patient not taking.Reported on 12/14/2024 Acetaminophen Extra Strength 500 MG tabletIndicatio ns:Acute bilateral low back pain with left-sided sciatica TAKE 1-2 TABLET BY ORAL ROUTE EVERY 6-8 HOURS NEEDED NEEDED FOR PAIN 60 tablet Active montelukast (Singulair) 10 MG tablet Take 1 tablet by mouth at bed time. Active hydroquinone 4 % cream APPLY TO DARK SPOTS ON FACE TWICE A DAY Active polyethylene glycol, PEG, 3350 (Glycolax, Miralax) powder Once Active Baclofen 10 MG pack 10 mg. Active lidocaine (Lidoderm) 5 % patch daily Active bisacodyl (Dulcolax) 5 MG EC tablet 20 mg. Active metFORMIN (Glucophage) 500 MG tabletIndicatio ns:Type 2 diabetes mellitus without complication, without long-term current use of insulin (CMS/HCC) Take 1 tablet (500 mg) by mouth with breakfast and with evening meal. 60 tablet 11 025 2025 Active amLODIPine (Norvasc) 5 MG tabletIndicatio ns:Essential (primary) hypertension Take 1 tablet (5 mg) by mouth in the morning. 90 tablet 3 Active acetic acid-hydrocorti sone (Vosol-HC) otic solutionIndicat ions:Acute swimmer's ear of left side Administer 3 drops into the left ear 3 times daily for 10 days. 10 mL 2024 Active Mometasone Furoate (Asmanex HFA) 100 MCG/ACT aerosolIndicati ons:Mild intermittent asthma with acute exacerbation Take 2 inhalations in the morning and 2 inhalations at bedtime. 180 Act 3 Active Tirzepatide-Pablito ght Management (Zepbound) 2.5 MG/0.5ML solution auto-injectorIn dications:Class 3 severe obesity due to excess calories with serious comorbidity and body mass index (BMI) of 50.0 to 59.9 in adult Inject 0.5 mL (2.5 mg) under the skin 1 (one) time per week. 2 mL Active amLODIPine (Norvasc) 5 MG tabletIndicatio ns:Essential (primary) hypertension TAKE 1 TABLET BY MOUTH EVERY DAY IN THE MORNING 90 tablet 3 024 2024 Discontinued(R eorder (will not trigger notification to Pharmacy)) cyclobenzaprine (Flexeril) 10 MG tablet Take 1 tablet (10 mg) by mouth 3 times daily for 10 days. 30 tablet 025 2024 Discontinued Acetaminophen Extra Strength 500 MG tabletIndicatio ns:Acute bilateral low back pain with left-sided sciatica TAKE 1-2 TABLET BY ORAL ROUTE EVERY 6-8 HOURS NEEDED NEEDED FOR PAIN 90 tablet 025 2024 Discontinued(R eorder (will not trigger notification to Pharmacy)) fluticasone (Flovent) 110 MCG/ACT inhaler INHALE 2 PUFFS BY MOUTH EVERY 12 HOURS. 12 g 2 025 2024 Discontinued(M ed list cleanup (will not trigger notification to Pharmacy)) loratadine (Claritin) 10 MG tablet Take 1 tablet (10 mg) by mouth Once per day. 30 tablet 2 025 2024 Discontinued predniSONE (Deltasone) 20 MG tablet 2 tabs po daily for 5 days 10 tablet 025 2024 Discontinued(R eorder (will not trigger notification to Pharmacy)) azithromycin (Zithromax Z-Ino) 250 MG tablet Take 2 tablets once on day 1, then 1 tablet 1x/day for 4 days. 6 tablet 025 2024 Discontinued(M ed list cleanup (will not trigger notification to Pharmacy)) amLODIPine (Norvasc) 5 MG tablet 5 mg. 023 2024 Discontinued(M ed list cleanup (will not trigger notification to Pharmacy)) albuterol (ProAir HFA) 108 (90 Base) MCG/ACT inhaler take 2 puffs by Inhalation route every 4 hours as needed 021 2024 Discontinued(M ed list cleanup (will not trigger notification to Pharmacy)) albuterol (2.5 MG/3ML) 0.083% nebulizer solution Inhale 3 mL every 4 (four) hours. 020 2024 Discontinued(M ed list cleanup (will not trigger notification to Pharmacy)) chlorhexidine (Peridex) 0.12 % solution Place 10 mL into mouth between cheek and gum every 8 (eight) hours. 021 2024 Discontinued(M ed list cleanup (will not trigger notification to Pharmacy)) naproxen (Naprosyn) 500 MG tablet 500 mg. 024 2024 Discontinued(M ed list cleanup (will not trigger notification to Pharmacy)) Aspirin 81 MG capsule 1 tablet. 023 2024 Discontinued(M ed list cleanup (will not trigger notification to Pharmacy)) fluticasone (Flovent) 110 MCG/ACT inhaler 2 times a day 023 2024 Discontinued(M ed list cleanup (will not trigger notification to Pharmacy)) cyclobenzaprine (Flexeril) 5 MG tablet 10 mg. 024 2024 Discontinued(M ed list cleanup (will not trigger notification to Pharmacy)) Mometasone Furoate (Asmanex HFA) 100 MCG/ACT aerosolIndicati ons:Mild intermittent asthma with acute exacerbation Inhale 1 Act (100 mcg) 2 times daily. 13 g 025 2024 Discontinued Active Problems Problem Noted Date Diagnosed Date Sacroiliitis 12/13/2024 Angioedema of lips 10/26/2024 Overview (10/26/2024): Referral to allergy, Prednisone rx today, monitor bp Pt aware of s/s to report Assessment & Plan (10/26/2024 3:26 PM EDT): Pt referred to pcp for ongoing management Acute bilateral low back pain with left-sided sc iatica 04/24/2024 Assessment & Plan (04/24/2024 9:05 AM EST): Advised re stretching exercises for lower back Advised to come to acupuncture clinic. Will get Toradol 30mg IM x 1 today, continue with tylenol 500-1000 mg tid prn pain + Flexeril at bedtime x 1-2w Declined acupuncture today but will call back prn when ready. Abdominal discomfort 06/30/2023 Assessment & Plan (06/30/2023 2:52 PM EDT): -Reassurance given to the patient -Return to clinic if you experience diarrhea, fever, vomiting or if symptoms worsen. Elevated hemoglobin A1c 08/31/2022 Assessment & Plan (01/25/2023 8:56 AM EDT): -Advise pt to f up w PCP w regards to DM2 management. HTN (hypertension) 03/27/2022 Assessment & Plan (01/30/2023 8:09 AM EDT): Asymptomatic ,not complaint w meds -advised to get home and start daily use of HDCTZ 25 and amlodipine 5 mg daily -has a pt w PCP in 2 weeks to monitor BP -Advised pt to bring home BP readings Assessment & Plan (01/25/2023 8:54 AM EDT): Elevated BP today. Per Pt, BP is normal at home. -Advise to bring home BP readings to apt w PCP. -Also advise to bring all meds to next apt to clarify those that she is taking. 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 Morbid obesity 11/23/2011 Resolved Problems Problem Noted Date Diagnosed Date Resolved Date Sore throat 01/30/2023 10/27/2023 Assessment & Plan (01/30/2023 8:08 AM EDT): Rapid strep test is negative. Only noted mild erythema in hard palate and possible oral thrush on tongue. Recent steroid use. -nystatin swish QID x 7 to 10 days -cepacol,tylenol prn and NSAIDS -has at home -alarm signs and symptoms Encounters Date Type Department Care Team Description 12/16/2024 Refill [facility] [address] [place] [address] Ailyn Smart CNP Mild intermittent asthma with acute exacerbation 12/14/2024 1:15 PM EDT Office Visit [facility] [address] [place] [address] Ailyn Smart CNP Encounter to establish care (Primary Dx); Encounter for screening for malignant neoplasm of colon; Type 2 diabetes mellitus without complication, without long-term current use of insulin ([facility]); Mild intermittent asthma with acute exacerbation; Essential (primary) hypertension; Acute swimmer's ear of left side; Encounter for immunization; Dietary counseling; Exercise counseling; Class 3 severe obesity due to excess calories with serious comorbidity and body mass index (BMI) of 50.0 to 59.9 in adult; RUQ pain 12/14/2024 Travel 12/14/2024 Telephone [facility] [address] [place] [address] Ailyn Smart CNP chart prep 11/20/2024 8:40 AM EDT Office Visit [facility] [address] [place] [phone] David Ortiz MD Influenza-like symptoms (Primary Dx); Mild intermittent asthma with acute exacerbation; Acute bilateral low back pain with left-sided sciatica 11/20/2024 Travel 10/25/2024 9:20 AM EDT Office Visit [facility] [address] [place] [phone] Maranda Guerrero NP Angioedema of lips, initial encounter (Primary Dx) 10/25/2024 Refill [facility] [address] [place] [phone] Maranda Guerrero NP 10/25/2024 Travel from Last 3 Months Immunizations Immunization Administration Dates Next Due INFLUENZA INJECTABLE QUADRIV ALANT CCIIV4 MDCK Multi-dose vial 06/29/2019 Influenza injectable quadriv alent IIV4 with preservative 01/13/2016 Influenza injectable quadriv alent preservative free 02/17/2023,01/13/2022,01/15/2021,01/02,01/21/2017,12/31/2014 Influenza, IIV3, injectable 03/13/2024 Influenza, Injectable, MDCK, preservative free 03/13/2024 Influenza, Split (incl. tavon fied surface antigen) 01/05/2012 Moderna Covid-19 Vaccine 12+ 02/17/2021,07/25/19 21,06/26/2020 Moderna Covid-19 Vaccine 6+ Bivalent 04/22/2022 Pfizer Covid-19 Vaccine 12+ 03/13/2024, Pfizer Covid-19 Vaccine 12+ delvis-sucrose (Mireles Cap) 03/13/2024 Pneumococcal Conjugate PCV 20 12/14/2024 Pneumococcal Polysaccharide PPSV23 08/16/2017 Tdap 03/04/2022,01/21/2017 Family History Medical History Relation Name Comments Prostate cancer Father Cancer Mother Relation Name Status Comments Father Mother Social History Tobacco Use Types Packs/Day Years Used Date Smoking Tobacco: Never Passive Smoke Exposure: Never Smokeless Tobacco: Never Tobacco Cessation:Counseling Given: Not Answered Alcohol Use Standard Drinks/Week Comments Never 0 [...] Orientation Straight 02/16/2022 10 :14 AM EDT Last Filed Vital Signs Vital Sign Reading [...] Mass Index 57.77 12/14/2024 1:22 PM EDT Plan of Treatment Health Maintenance Due Date Last Done Comments CT Colonography 1975 Colonoscopy 1975 Colorectal Cancer Screening 1975 FIT DNA/Cologuard 1975 FIT 1975 FOBT 1975 HIV Screening 1975 Sigmoidoscopy 1975 Diabetes: Foot Exam 01/05/1986 Eye Exam 01/05/1986 Hepatitis C Screening 01/05/1994 Diabetes: Urine Protein Screening 01/05/1995 Hepatitis B Vaccines (1 of 3 - 19+ 3-dose series) 01/05/1995 Pap Smear 01/05/1997 Cervical Cancer Screening 01/05/2006 HPV/Cotest 01/05/2006 Lipid Panel 11/11/2022 11/11/2021, 05/20, 01/16/2021 COVID-19 Vaccine ( season) 2024 03/13/2024, 03/13/2024, 03/16/2023, Additional history exists Influenza Vaccine (#1) 2024 4, 03/13/2024, 02/17/2023, Additional history exists Diabetes: Hemoglobin A1C 03/16/2025 025, 02/17/2023, 10/28/2022, Additional history exists Mammogram 07/17/2025 07/17/2024, 06/18, 10/16/2021, Additional history exists Tobacco Screening 11/20/2025 11/20/2024 Alcohol/Substance Use Screening 12/14/2025 12/14/2024 Depression Screening 12/14/2025 12/14/2024, 12/15/19 Disability Screening 12/14/2025 12/14/2024 Family Planning (PISQ) 12/14/2025 12/14/2024 SDOH Screening 12/14/2025 12/14/2024 Zoster Vaccines (1 of 2) 01/05/2026 DTaP/Tdap/Td Vaccines (3 - Td or Tdap) 03/04/2032 03/04/2022, 01/21/2017 RSV Patients and Patients Aged 60 years or older (1 - 1-dose 75+ series) 01/05/2051 Pneumococcal Vaccine: Pediatrics (0 to 5 Years) and At-Risk Patients (6 to 49) Years Completed 12/14/2024, 08/16/2017 HIB Vaccines Aged Out No longer eligi [...] patient's age to complete this topic Meningococcal Vaccine Aged Out No malissa lilliana eligible based on patient's age to complete this topic RSV under 20 months Aged Out No longe r eligible based on patient's age to complete this topic Rotavirus Vaccines Aged Out No longer eligible based on patient's age to complete this topic Procedures Procedure Name Priority Date/Time Associated Diagnosis Comments POCT GLYCATED HEMOGLOBIN, TOTAL Routine 12/14/2024 2:18 PM EDT Encounter to establish care POCT GLUCOSE Routine 12/14/2024 2:17 PM EDT Encounter to establish care POCT RAPID COVID ANTIGEN Routine 11/20/2024 8:53 AM EDT Influenza-like symptoms POCT RAPID STREP A Routine 11/20/2024 8: 53 AM EDT Influenza-like symptoms POCT INFLUENZA A (ID NOW RAPID MOLECULAR) Routine 11/20/2024 8:53 AM EDT Influenza-like symptoms POCT INFLUENZA B (ID NOW RAPID MOLECULAR) Routine 11/20/2024 8:53 AM EDT Influenza-like symptoms BI MAMMOGRAM SCREENING TOMOSYNTHESIS BILATERAL Routine 07/17/2024 7:35 AM EDT LIPID PANEL, STANDARD Routine 11/11/2021 9:33 AM EDT from Last 3 Months or Most Recently Relevant to Health Maintenance Results * (ABNORMAL) POCT A1c (12/14/2024 2:18 PM EDT) Hemoglobin A1C 8.1(A) 4.0 - 5.7 % QC Media Lot # Comment:[id number] Lot# Expiration Date Comment:07/24/2026 Blood 12/14/2024 2:18 PM EDT Result [facility] POINT OF CARE TEST ENTER/ EDIT ORDERABLES Final Result * (ABNORMAL) POCT glucose manually resulted (12/14/2024 2:17 PM EDT) Pathologist [facility] Glucose Blood, POC 227(A) 60 - 200 mg/dL QC Media Lot # Comment:[id number] Lot# Expiration Date Comment:04/07/2025 Blood Capillary blood specimen / Unknown 12/14/2024 2:17 PM EDT Result [facility] POINT OF CARE TEST ENTER/ EDIT ORDERABLES Final Result * Influenza B (ID NOW Rapid Molecular) (11/20/2024 8:53 AM EDT) [facility] Influenza B Negative Negative, Indeterminate [facility] Swab 11/20/2024 8:53 AM EDT us David Ortiz MD POINT OF CARE TEST ENTER/EDIT OR DERABLES Final Result Performing Organization Address [facility] Co de Phone Number [facility] [address] [place] [phone] * Influenza A (ID NOW Rapid Molecular) (11/20/2024 8:53 AM EDT) [facility] Influenza A Negative Negative, Indeterminate [facility] Swab 11/20/2024 8:53 AM EDT us David rOtiz MD POINT OF CARE TEST ENTER/EDIT OR DERABLES Final Result Performing Organization Address [facility] [[email or web address]] de Phone Number [facility] [address] [place] [phone] * POCT Rapid COVID Ag (11/20/2024 8:53 AM EDT) [facility] Rapid COVID Ag Negative Swab 11/20/2024 8:53 AM EDT us David Ortiz MD POINT OF CARE TEST ENTER/EDIT OR DERABLES Final Result * POCT rapid strep A manually resulted (11/20/2024 8:53 AM EDT) [facility] Rapid Strep A Screen Negative Negative, None Detected Swab 11/20/2024 8:53 AM EDT us David Ortiz MD POINT OF CARE TEST ENTER/EDIT OR DERABLES Final Result * BI Mammogram Screening Tomosynthesis Bilateral (07/17/2024 7:35 AM EDT) Anatomical Region Laterality Modality Breast Bilateral Mammography 07/17/2024 7:35 AM EDT Narrative 07/22/2024 5:24 PM EDT [facility] [address] [place] [address] Mammography Report Signed Patient: Ebony Chao I MR#: [id number] : 1975 Acct:[id number] Age/Sex: 49 / F ADM Date: 07/17/24 Loc: HO.MAMMO Attending Dr: Meredith Morris MD Ordering Physician: Meredith Morris MD Results: 1Negati ve Date of Service: 07/17/24 Follow Up: 1 Year From Orig ina Mammogram Procedure(s): MM tomosynthesis screening BI Accession Number(s): [id number] cc: Meredith Morris MD EXAMINATION: MM SCREENING DIGITAL BREAST TOMOSYNTHESIS, BILATERAL CLINICAL INFORMATION: Screening. Asymptomatic. COMPARISON: Mammography: Comparison is made with available priors TECHNIQUE: Digital breast mammography with tomosynthesis is performed in both the craniocaudal and mediolateral oblique views along with computer-aided detection (CAD). FINDINGS: There are scattered areas of fibroglandular density (ACR BI-RADS breast composition Category b). There are no significant masses, abnormal calcifications, or other abnormalities. MM/MM tomosynthesis screening BI IMPRESSION: No mammographic evidence of malignancy. ASSESSMENT: BI-RADS BI-RADS 1 - Negative RECOMMENDATION: Routine annual mammography screening. 1 year F/U This examination should not preclude the clinical evaluation of a suspicious palpable abnormality. This patient's information was entered into a reminder system with a target due date for their next mammogram. Electronically signed by: Jenniffer Peraza DO 07/22/2024 05:21 PM EDT Dictated By: Jenniffer Peraza DO Signed By: <Electronically signed by Jenniffer Peraza DO in OV> 07/22/24 1721 DD/ 0735 TD/TT: 07/17/24 0745 Supply Chain Coordinator: Procedure Note Donotuseinterpreter, Image - 07/22/2024 [facility] [address] [place] [address] Mammography Report Signed Patient: Ebony Chao [facility]#: [id number] : 1975Acct:[id number] Age/Sex: 49 / FADM Date: 07/17/24 Loc: HO.MAMMO Attending Dr: Meredith Morris MD Ordering Physician: Meredith Morris MDResults: 1Negati ve Date of Service: 07/17/24Follow Up: 1 Year From Orig inal Mammogram Procedure(s): MM tomosynthesis screening BI Accession Number(s): [id number] cc: Meredith Morris MD EXAMINATION: MM SCREENING DIGITAL BREAST TOMOSYNTHESIS, BILATERAL CLINICAL INFORMATION: Screening. Asymptomatic. COMPARISON: Mammography: Comparison is made with available priors TECHNIQUE: Digital breast mammography with tomosynthesis is performed in both the craniocaudal and mediolateral oblique views along with computer-aided detection (CAD). FINDINGS: There are scattered areas of fibroglandular density (ACR BI-RADS breast composition Category b). There are no significant masses, abnormal calcifications, or other abnormalities. MM/MM tomosynthesis screening BI IMPRESSION: No mammographic evidence of malignancy. ASSESSMENT: BI-RADS BI-RADS 1 - Negative RECOMMENDATION: Routine annual mammography screening. 1 year F/U This examination should not preclude the clinical evaluation of a suspicious palpable abnormality. This patient's information was entered into a reminder system with a target due date for their next mammogram. Electronically signed by: Jenniffer Peraza DO 07/22/2024 05:21 PM EDT Dictated By: Jenniffer Peraza DO Signed By: <Electronically signed by Jenniffer Peraza DO in OV> 07/22/24 1721 DD/ 0735 TD/TT: 07/17/24 0745 Supply Chain Coordinator: Meredith Morris MD IMG BI PROCEDURES Edited Result - Final * (ABNORMAL) LIPID PANEL, STANDARD (11/11/2021 9:33 AM EDT) Chol/HDLC Ratio 4.5 <5.0 (calc) [facility] Cholesterol, Total 195 <200 mg/dL [facility] HDL Cholesterol 43(L) > OR = 50 mg/dL [facility] LDL Cholesterol 126(H) mg/dL (calc) [facility] Comment: Reference range: <100 Desirable range <100 mg/dL for primary prevention; <70 mg/dL for patients with CHD or diabetic patients with > or = 2 CHD risk factors. LDL-C is now calculated using the Anthony calculation, which is a validated novel method providing better accuracy than the Friedewald equation in the estimation of LDL-C. Yung SS et al. LEXX. 2013;310(19): 8972-4733 (http://education.[employer]/faq/CTQ917) Non-HDL Cholesterol 152(H) <130 mg/dL (calc) [facility] Comment: For patients with diabetes plus 1 major ASCVD risk factor, treating to a non-HDL-C goal of <100 mg/dL (LDL-C of <70 mg/dL) is considered a therapeutic option. Triglycerides 146 <150 mg/dL [facility] 11/11/2021 9:33 AM EDT us Meredith Morris MD LAB BLOOD ORDERABLES Final Resul t [facility] [address] from Last 3 Months or Most Recently Relevant to Health Maintenance Insurance [id number] [address] [place] [phone] Care Teams Senior Investment Manager Relationship Specialty Start Date End Date Ailyn Smart CNP [address] [place] [id number] PCP - General Family Medicine 11/24/24
--- OUTSIDE RECORDS SUMMARY | 2024-12-19 06:39 | XMS_ITS | Encounter Summary ---
Author Organization [employer] Address [address] 7t [place] [address] Care Team Providers Care Performance Makeup Artist Name Role Phone Meredith Morris MD Primary Care Provider [phone] Ailyn Smart CNP Primary Care Provider [phone] Reason for Visit * Reason Onset Date Comments triage 08/26/2022 Encounter Details Date Type Department Care Team (Late st Contact Info) Description 08/26/2022 Telephone [facility] MEDICINE [address] [place] [address] Meredith Morris MD [address] [place], [place] [phone] triage Social History Tobacco Use Types Packs/Day Years [...] AM EDT documented as of this encounter Miscellaneous Notes * Telephone Encounter - Tala Ascencio RN - 08/26/2022 10:38 AM EDT Triage call with [employer] Project Engineer [place] [id number] Pt reports just returned from [place] last night and noted some bug bites on the back of bilateral thighs. Pt reports , bed bugs suspected. Pt reports obtained bites 08/22-08/23 and bites are very itchy, and red. Pt has hx of asthma. Pt is neg for fever and going about regular activities as normal. Home care reviewed with Pt and Pt agreed with disposition. Pt will call back if home care advisednot successful. Offered WIC if needed and Pt agreed. Protocol Used: Bed Bug Bite (Pediatric) Protocol-Based Disposition: Home Care Positive Triage Question: * Bed bug bites * All higher-acuity triage questions were negative Care Advice Discussed: * Reassurance and Education - Bed Bug Bites * Bed Bugs: How to Suspect (If Unsure) * Hydrocortisone Cream for Itching * Antihistamine for Itching * Don't Scratch * Expected Course * Bed Bug Repellents - Not Effective * Reasons To Call Back - Bite looks infected (new redness starts after 48 hours) - Severe itching doesn't respond to hydrocortisone cream - Large red bumps are present more than 7 days - Your child becomes worse * Elimination of Bed Bugs from the Home * Bed Bug Repellents - Not Effective * Reasons To Call Back - You have other questions or concerns * Telephone Encounter - Nico Jeff - 08/26/2022 9:46 AM EDT Symptom: Insect Bites Outcome: Schedule an appointment to be seen within 24 hours Reason: Caller denied all higher acuity questions The caller accepted this outcome pt speaks cymro documented in this encounter Plan of Treatment Not on file documented as of this encounter Visit Diagnoses Not on filedocumented in this encounter Care Teams Performance Makeup Artist Relationship Specialty Start Date End Date Meredith Morris MD [address] [place] [address] PCP - General Family Medicine 04/01/12 11/23/24 Ailyn Smart CNP [address] [place] [address] PCP - General Family Medicine 11/24/24 documented as of this encounter
--- OUTSIDE RECORDS SUMMARY | 2024-12-19 06:39 | XMS_ITS | Encounter Summary ---
Author Organization [employer] Address [address] [address] Care Team Providers Care Clinical Material Handler Name Role Phone Ailyn Smart CNP Primary Care Provider [phone] Encounter Details Date Type Department Care Team (Latest Contact Info) Description 12/14/2024 Travel Social History Tobacco Use Types Packs/Day Years [...] AM EDT documented as of this encounter Functional Status * Over the past 2 weeks, how often have you been bothered by any of the following problems? Question Answer Date of Assessment Author Patient Health Questionnaire -2 Score 0 12/14/2024 1:31 PM EDT Rj Whitaker MA * Little interest or pleasure in doing things Answer Date of Assessment Author Not at all 12/14/2024 1:31 PM EDT Bailey-Jennifer Ashley MA * Feeling down, depressed, or hopeless Answer Date of Assessment Author Not at all 12/14/2024 1:31 PM EDT [employer] Jennifer leonardo MA * Trouble falling or staying asleep, or sleeping too much Answer Date of Assessment Author Not at all 12/14/2024 1:31 PM EDT [employer] Jennifer leonardo MA * Feeling tired or having little energy Answer Date of Assessment Author Several days 12/14/2024 1:31 PM EDT [employer] Jennifer leonardo MA * Poor appetite or overeating Answer Date of Assessment Author Not at all 12/14/2024 1:31 PM EDT Bailey-Jennifer Ashley MA * Feeling bad about yourself - or that you are a failure or have let yourself or your family down Answer Date of Assessment Author Several days 12/14/2024 1:31 PM EDT [employer] Jennifer leonardo MA * Trouble concentrating on things, such as reading the newspaper or watching television Answer Date of Assessment Author Not at all 12/14/2024 1:31 PM EDT [employer] Jennifer leonardo MA * Moving or speaking so slowly that other people could have noticed? Or the opposite - being so fidgety or restless that you have been moving around a lot more than usual. Answer Date of Assessment Author Not at all 12/14/2024 1:31 PM EDT [employer] Jennifer leonardo MA * Thoughts that you would be better off or hurting yourself in some way Answer Date of Assessment Author Not at all 12/14/2024 1:31 PM EDT [employer] Jennifer leonardo MA * Patient Health Questionnaire-9 Score Answer Date of Assessment Author 2 12/14/2024 1:31 PM EDT [employer] Jennifer leonardo MA * How difficult have these problems [...] or irritable 0 12/14/2024 1:31 PM EDT Rj Whitaker MA Feeling afraid as if somethi ng awful might happen 0 12/14/2024 1:31 PM EDT Rj Whitaker MA KYRA-7 Total Score 0 12/14/2024 1:31 PM EDT Jennifer Whitaker MA documented as of this encounter Plan of Treatment Not on file documented as of this encounter Visit Diagnoses Not on filedocumented in this encounter Additional Health Concerns Assessment Noted Time PHQ-9 Depression Total Score: 2 12/15/19 1:31 PM EDT documented as of this encounter Care Teams Clinical Material Handler Relationship Specialty Start Date End Date Ailyn Smart CNP [address] [place] [address] PCP - General Family Medicine 11/24/24 documented as of this encounter
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
--- OUTSIDE RECORDS SUMMARY | 2024-12-19 06:39 | XMS_ITS | Encounter Summary ---
Author Organization [employer] Address [address] [facility] 7t [place] [address] Care Team Providers Care Batch Mixer Name Role Phone Ailyn Smart CNP Primary Care Provider [phone] Reason for Visit * Reason Onset Date Comments chart prep 12/14/2024 Encounter Details Date Type Department Care Team ([facility] st Contact Info) Description 12/14/2024 Telephone [facility] MED & PEDS [address] [place] [address] Ailyn Smart CNP [address] [place] [address] chart prep Social History Tobacco Use Types Packs/Day Years [...] encounter Miscellaneous Notes * Telephone Encounter - Jennifer Whitaker MA - 12/14/2024 8:52 AM EDT Chart Prep Labs: not applicable Images: not applicable Referrals: not applicable Vaccines due: Covid, PCV20, and Hep B Screenings: colonoscopy, pap smear, and STI screening Overdue care gaps: A1c, Glucose, SBIRT, SDOH, PHQ-9, KYRA-7, and Disability screen documented in this encounter Plan of Treatment Not on file documented as of this encounter Visit Diagnoses Not on filedocumented in this encounter Additional Health Concerns Assessment Noted Time PHQ-9 Depression Total Score: 2 12/15/19 25 1:31 PM EDT documented as of this encounter Care Teams Batch Mixer Relationship Specialty Start Date End Date Ailyn Smart CNP [address] [place] [address] PCP - General Family Medicine 11/24/24 documented as of this encounter
[2024-12-19 06:50] LABS: MANUAL DIFF FLAG NO
[2024-12-19 07:39] LABS: Hematocrit 38.3 % (37.0-47.0); Hemoglobin 12.6 g/dl (12.0-16.0); Imm Gran Abs Auto 0.04 X10*3/uL (0.00-0.03); Imm Gran Pct Auto 0.5 % (0.0-0.4); Lymphocytes Absolute Auto 2.6 X10*3/uL (1.2-4.9); Mean Corpuscular HGB Conc 32.9 g/dl (31.0-35.0); Mean Corpuscular Hemoglobin 25.5 pg (27.0-33.0); Mean Corpuscular Volume 77.5 fL (80.0-98.0); NRBC Abs Auto 0.000 X10*3/uL (0.0-0.012); NRBC Pct Auto 0.0 /100WBC (0.0-0.2); Platelet Count 234 X10*3/uL (160-400); Red Blood Count 4.94 X10*6/uL (4.20-5.50); White Blood Count 7.9 X10*3/uL (4.8-10.8)
[2024-12-19 07:51] LABS: Hemoglobin A1C 207.7337 umol/L; Total Hemoglobin (HGBA1C) 3220.9597 umol/L
[2024-12-19 08:11] LABS: Alanine Aminotransferase 15 U/L (0-31); Albumin Level 4.0 g/dL (3.5-5.0); Alkaline Phosphatase 80 U/L (39-117); Anion Gap 10 (12-20); Aspartate Amino Transferase 16 U/L (5-31); Blood Urea Nitrogen 10 mg/dL (9-16); Calcium 9.2 mg/dL (8.4-10.2); Carbon Dioxide 28 mmol/L (22-29); Chloride 104 mmol/L (96-108); Cholesterol 236 mg/dL (<200); Estimated Glomerular Filt Rate > 60; HDL Cholesterol 41 mg/dL (>40); Potassium 4.3 mmol/L (3.3-5.1); Sodium 138 mmol/L (135-145); Total Protein 7.0 g/dL (6.5-8.0); Triglycerides 154 mg/dL (<150)
[2024-12-19 08:32] LABS: HBS Num1 0.52 mIU/mL (0-7.99); HBc Num1 0.09 S/CO (0.00-0.79); HBsAGNum1 0.34 S/CO (0.00-0.99); HIV Num 1 0.05 S/CO (0.00-0.99); Hepatitis B Surface Antigen Negative (Negative); ~HepC Num1 0.10 S/CO (0.00-0.79); ~Hepatitis B Surface Antibody NONREACTIVE (Nonreactive); ~Hepatitis C Antibody Nonreactive (Nonreactive)
[2024-12-19 08:51] LABS: Microalbum/Creatinine Ratio Ur 3.3 ug/mg cr (<30)
== END 2024-12-19 06:37 | disposition home or self-care (01) ==
LOC: HO.LAB 06:36
DX: I10 Essential (primary) hypertension (principal); Z76.89 Persons encountering health services in other specified circumstances; Z11.59 Encounter for screening for other viral diseases; Z11.4 Encounter for screening for human immunodeficiency virus [HIV]
CPT/HCPCS: 36415; 80053; 80061; 82043; 82570; 83036; 84443; 85025; 86704; 86706; 86803; 87340; 87389

== ENCOUNTER 2025-02-07 15:25 | Outpatient (REF) | payer MEDICAID, SELFPAY ==
--- OUTSIDE RECORDS SUMMARY | 2025-02-07 14:45 | XMS_ITS | Encounter Summary ---
Author Organization [employer] Address [address] [facility] 7t [place] [address] Care Team Providers Care Flag Car Driver Name Role Phone Ailyn Smart CNP Primary Care Provider [phone] Encounter Details Date Type Department Care Team ([facility] st Contact Info) Description 02/07/2025 2:45 PM EDT Office Visit [facility] MED & PEDS [address] [place], [place] [phone] Ailyn Smart CNP [address] [place] [address] Primary hypertension (Primary Dx); Type 2 diabetes mellitus without complication, without long-term current use of insulin (HCC); Neuropathy; Other constipation Social History Tobacco Use Types Packs/Day Years [...] is your housing situation today? I have abundioleeanna walsh 12/14/[address] you [...] Reading Time Taken Comments Blood Pressure 160/86 02/07/2025 2:40 PM EDT Pulse 84 02/07/2025 2:40 PM EDT Temperature 36.2 C (97.2 F) 02/07/2025 2:40 PM EDT Respiratory Rate 18 02/07/2025 2:40 PM EDT Oxygen Saturation 98% 02/07/2025 2:40 PM EDT Inhaled Oxygen Concentration - - Weight 134 kg (295 lb) 02/07/2025 2:40 PM EDT Height 158 cm (5' 2.21 ) 02/07/2025 2:40 PM EDT Body Mass Index 53.59 02/07/2025 2:40 PM EDT documented in this encounter Progress Notes * Ailyn Smart CNP - 02/07/2025 2:45 PM EDT Subjective Patient ID: Ebony Jmaa is a 50 y.o. female who presents for sick onsite visit. HPI Current concerns - Constipation since starting weekly injection for weight loss and diabetes, taken every Wednesday for 5 weeks; stools are hard and cause discomfort, not typical for her; used bathroom today but with difficulty; occasional blood when wiping due to straining - Occasional Nausea present, feels normal for her -She reports she has reduced snacking and sweets and has stopped eating out at restaurants since doing so she has lost over 20lbs in 2 months. - Burning sensation in hands and feet, interferes with sleep, unable to sleep well - Sleep disturbance, usually sleeps through the night but now wakes up after 2 hours and has trouble falling back asleep; does not feel sleepy at usual bedtime - No anxiety reported -no recent life changes -denies any stress -reports she does have intermittent hot flashes consistent with perimenopause - Pt also expresses concern regarding metformin. Pt reports she hasn't been taking her metformin norman mother concerned about potential kidney damage from metformin and advised switching to another medication. Review of Systems Gastrointestinal: Positive for constipation. Negative for diarrhea, nausea and vomiting. Psychiatric/Behavioral: Positive for sleep disturbance. Negative for dysphoric mood and self-injury. Objective Vitals: 02/07/25 1440 BP: (!) 160/86 Pulse: 84 Resp: 18 Temp: 97.2 ??F (36.2 ??C) SpO2: 98% Physical Exam Constitutional: Appearance: Normal appearance. She is normal weight. Cardiovascular: Rate and Rhythm: Normal rate and regular rhythm. Pulses: Normal pulses. Heart sounds: Normal heart sounds. No murmur heard. No friction rub. No gallop. Pulmonary: Effort: Pulmonary effort is normal. No respiratory distress. Breath sounds: Normal breath sounds. No wheezing or rales. Neurological: General: No focal deficit present. Mental Status: She is alert and oriented to person, place, and time. Psychiatric: Mood and Affect: Mood normal. Behavior: Behavior normal. Thought Content: Thought content normal. Judgment: Judgment normal. Assessment/Plan Problem List Items Addressed This Visit HTN (hypertension) - Primary Relevant Medications amLODIPine (Norvasc) 10 MG tablet BP at/not at goal of <140/90 Medication: Continue current antihypertensives: Start/change dosage of: increase to amlodipine 10mg Lifestyle Modifications: Low sodium DASH diet Regular aerobic exercise (>=150 min/week) Weight loss if BMI >25 Limit alcohol, avoid tobacco Follow-up: Recheck BP in office/home in ___4___ weeks Patient Education: Provided verbal/written education on BP goals and home monitoring Emphasized adherence to medication and follow-up Other Visit Diagnoses Type 2 diabetes mellitus without complication, without long-term current use of insulin (HCC) Relevant Orders POCT glucose manually resulted (Completed) Hemoglobin A1c Lab Results Component Value Date HGBA1C 8.1 (H) 12/19/2024 Plan to repeat A1c today Pt will continue on GLP 1 and metformin for T2DM and weight loss along with lifestyle modifications Patient education given today regarding metformin and its importance in controlling T2DM as of now her kidney function is wnl and the benefits of this medication override the risks. However if her GIside effects persist we may consider formally discontinuing med based on her A1c. As pt is having some intermittent constipation with current dose we will hold off on uptitration to5mg until next f/u. Advised pt that this medication can cause dehydration and she should be drinking 2L of water daily along with fiber rich foods. I prescribed prn miralax F/u 1 month Neuropathy Relevant Medications gabapentin (Neurontin) 100 MG capsule Will trial gabapentin for neuropathy symptoms Gabapentin also used for VMS in menopause, therefore will also use to hopefully help with her hot flashes and insomnia. Other constipation Relevant Medications polyethylene glycol, PEG, 3350 (MiraLax) 17 GM/SCOOP powder Follow up in about 1 month (around 03/10/2025) for f/u DM. documented in this encounter Plan of Treatment Upcoming Encounters Date Type Department Care Team ([facility] st Contact Info) Description 03/13/2025 1:30 PM EST Office Visit [facility] MED & PEDS [address] [place] [address] Ailyn Smart CNP [address] [place] [address] Scheduled Orders Name Type Priority Associated Diagnoses Orde r Schedule Hemoglobin A1c Lab Routine Type 2 diabetes mellitus without complication, without long-term current use of insulin (HCC) Expected: 02/07/2025 (Approximate), Expires: 02/07/2026 documented as of this encounter Procedures Procedure Name Priority Date/Time Associated Diagnosis Comments POCT GLUCOSE Routine 02/07/2025 2:42 PM EDT Type 2 diabetes mellitus without complication, without long-term current use of insulin (HCC) documented in this encounter Results * POCT glucose manually resulted (02/07/2025 2:42 PM EDT) Glucose Blood, POC 143 60 - 200 mg/dL QC Media Lot # Comment:[id number] Lot# Expiration Date Comment:05/27/2025 Blood Capillary blood specimen / Unknown 02/07/2025 2:42 PM EDT Ailyn Smart CNP POINT OF CARE TEST ENTER/ EDIT ORDERABLES Final Result documented in this encounter Visit Diagnoses Diagnosis Primary hypertension- Primary Unspecified essential hypertension Type 2 diabetes mellitus without complication, without long-term current use of insulin (HCC) Neuropathy Mononeuritis of unspecified site Other constipation documented in this encounter Additional Health Concerns Assessment Noted Time PHQ-9 Depression Total Score: 2 12/15/19 25 1:31 PM EDT documented as of this encounter Care Teams Flag Car Driver Relationship Specialty Start Date End Date Ailyn Smart CNP PCP - General Family Medicine 11/24/24 documented as of this encounter
--- OUTSIDE RECORDS SUMMARY | 2025-02-07 21:39 | XMS_ITS | Encounter Summary ---
Author Organization [employer] Address [address] [facility] 7t [place] [address] Care Team Providers Care Land Developer Name Role Phone Ailyn Smart CNP Primary Care Provider [phone] Reason for Visit * Reason Onset Date Comments Med Refill 12/20/2024 Encounter Details Date Type Department Care Team (Late st Contact Info) Description 12/20/2024 Telephone [facility] MEDICINE [address] [place] [address] Ailyn Smart CNP [address] [place], [place] [phone] Med Refill Social History Tobacco Use Types Packs/Day Years [...] encounter Miscellaneous Notes * Telephone Encounter - Gretchen Mathew LPN - 12/20/2024 4:01 PM EDT Please review request is PCP prescribing? * Telephone Encounter - Nikita Mansfield - 12/20/2024 3:59 PM EDT TC from pt requesting medication refill. Medications needing refill : lidocaine (Lidoderm) 5 % patch To be sent to: [facility]/pharmacy #[id number] [place] [address] documented in this encounter Plan of Treatment Upcoming Encounters Date Type Department Care Team (Late st Contact Info) Description 03/13/2025 1:30 PM EST Office Visit [facility] MED & PEDS [address] [place], [place] [phone] Ailyn Smart CNP [address] [place], [place] [phone] documented as of this encounter Visit Diagnoses Not on filedocumented in this encounter Additional Health Concerns Assessment Noted Time PHQ-9 Depression Total Score: 2 12/15/19 1:31 PM EDT documented as of this encounter Care Teams Land Developer Relationship Specialty Start Date End Date Ailyn Smart CNP PCP - General Family Medicine 11/24/24 documented as of this encounter
--- OUTSIDE RECORDS SUMMARY | 2025-02-07 21:39 | XMS_ITS | Encounter Summary ---
Author Organization [employer] Address [address] [facility] 7t [place] [address] Care Team Providers Care Director Of Strategic Partnerships Name Role Phone Ailyn Smart CNP Primary Care Provider [phone] Reason for Visit * Reason Onset Date Comments chart prep 02/02/2025 Encounter Details Date Type Department Care Team ([facility] st Contact Info) Description 02/02/2025 Telephone [facility] MED & PEDS [address] [place], [place] [phone] Ailyn Smart CNP [address] [place] [address] chart prep Social History Tobacco Use Types [...] Telephone Encounter - Jennifer Whitaker MA - 02/02/2025 3:03 PM EDT Chart Prep Labs: not applicable Images: not applicable Referrals: not applicable Vaccines due: HepB, Flu, Covid Screenings: colonoscopy, pap smear, and foot exam Overdue care gaps: Not applicable documented in this encounter Plan of Treatment Upcoming Encounters Date Type Department Care Team (Late st Contact Info) Description 03/13/2025 1:30 PM EST Office Visit [facility] MED & PEDS [address] [place] [address] Ailyn Smart CNP [address] [place] [address] documented as of this encounter Visit Diagnoses Not on filedocumented in this encounter Additional Health Concerns Assessment Noted Time PHQ-9 Depression Total Score: 2 12/15/19 1:31 PM EDT documented as of this encounter Care Teams Director Of Strategic Partnerships Relationship Specialty Start Date End Date Ailyn Smart CNP PCP - General Family Medicine 11/24/24 documented as of this encounter
--- OUTSIDE RECORDS SUMMARY | 2025-02-07 21:39 | XMS_ITS | Encounter Summary ---
Author Organization [facility] Address [address] [place] [id number] Care Team Providers Care Medical Insurance Biller Name Role Phone Unavailable Primary Care Provider Unavailabl e Reason for Visit * Reason Onset Date Comments Prior Authorization 01/31/2025 02/08/25 Dr. Gray Valdovinos Encounter Details Date Type Department Care Team (Late Contact Info) Description 01/31/2025 Telephone General Surgery - [address] [phone] Gray Valdovinos MD [address] [place] [phone] Social History Tobacco Use Types Packs/Day Years Used Date Smoking Tobacco: Never Smokeless Tobacco: Never Alcohol Use Standard Drinks/Week Comments Not Currently 0 (1 standard drink = 0.6 oz pur e alcohol) Comments Unknown Sex and Gender Information Value Date Recorded Sex Assigned at Not on file Legal Sex Female 6:50 PM EST Gender Identity Not on file Sexual Orientation Not on file documented as of this encounter Progress Notes * Yolis De La Cruz - 01/31/2025 3:26 PM EDT She is having an in-office surgery with Dr. Valdovinos on 02/09/25. She has [facility]. I called to get a referral and left message. documented in this encounter Plan of Treatment Upcoming Encounters Date Type Department Care Team (Late Contact Info) Description 02/09/2025 10:30 AM EDT Procedure visit [facility] Surgery [address] [phone] Gray Valdovinos MD [address] [place] [address] [facility] [place] [phone] documented as of this encounter Visit Diagnoses Not on filedocumented in this encounter
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
--- OUTSIDE RECORDS SUMMARY | 2025-02-07 21:40 | XMS_ITS | Encounter Summary ---
Author Organization [employer] Address [address] [facility] [address] [place] [address] Care Team Providers Care Runstitching Machine Operator Name Role Phone Meredith [place] MD Primary Care Provider [phone] Ailyn Smart CNP Primary Care Provider [phone] Reason for Visit * Reason Onset Date Comments triage 08/26/2022 Encounter Details Date Type Department Care Team (Late st Contact Info) Description 08/26/2022 Telephone [facility] MEDICINE [address] [place] [address] Meredith [place] MD [address] [place] [address] triage Social History Tobacco Use Types Packs/Day [...] 08/26/2022 10:38 AM EDT Triage call with [employer] [place] [employer] ID [id number] Pt reports just returned from [place] last night and noted some bug bites on the back of bilateral thighs. Pt reports , bed bugs suspected. Pt reports obtained bites 5/6-57 and bites are very itchy, and red. [...] The caller accepted this outcome pt speaks zimbabwean documented in this encounter Plan of Treatment Upcoming Encounters Date Type Department Care Team (Late st Contact Info) Description 03/13/2025 1:30 PM EST Office Visit [facility] MED & PEDS [address] [place] [address] Ailyn Smart, JOSSIE [address] [place] [address] documented as of this encounter Visit Diagnoses Not on filedocumented in this encounter Care Teams Runstitching Machine Operator Relationship Specialty Start Date End Date Meredith [place] MD [address] [place] [id number] PCP - General Family Medicine 04/01/12 11/23/24 Ailyn Smart CNP [address] [place] [address] PCP - General Family Medicine 11/24/24 documented as of this encounter
--- OUTSIDE RECORDS SUMMARY | 2025-02-07 21:40 | XMS_ITS | Clinical Summary ---
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 5 Active naproxen (NAPROSYN) 500 mg tablet take [...] Encounters Date Type Department Care Team Description 01/31/2025 [facility] [address] [address] Gray Valdovinos MD from Last [...] AM EDT Procedure visit General Surgery - [facility] [address] [place] [address] Gray Valdovinos MD [address] [place] [phone] Health Maintenance Due Date Last Done Comments Breast Cancer Screening 1976 Colorectal Cancer Screening: Colonoscopy 1975 Hepatitis B Vaccines (1 of 3 - 19+ 3-dose series) 01/05/1995 Cervical Cancer Screening: Pap Smear 01/05/1997 Pneumococcal Vaccine: Pediatrics (0 to 5 Years) and At-Risk Patients (6 to 49 Years) (2 of 2 - PCV) 08/16/2018 08/16/2017 Depression Screening 04/19/2024 HIV Screening 09/26/2024 Hepatitis C Screening 09/26/2024 Hypertension/CHF/CAD Annual BMP Blood Test 09/26/2024 Social Influencers of Health Screening 09/26/2024 COVID-19 Vaccine ( season) 2024 03/13/2024, 03/16/2023, 04/22/2022, Additional history exists Influenza Vaccine (#1) 2024 , 02/17/2023, 01/13/2022, Additional history exists Cholesterol Screening (Lipid Panel) 11/11/2026 11/11/2021 DTaP,Tdap,and Td Vaccines (3 - Td or Tdap) 03/04/2032 03/04/2022, 01/21/2017 RSV Immunization Adult Patients (1 - 1-dose 75+ series) 01/05/2051 HIB Vaccines Aged Out No longer eligi [...]
--- OUTSIDE RECORDS SUMMARY | 2025-02-07 21:40 | XMS_ITS | Encounter Summary ---
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 Role Phone Ailyn Smart CNP Primary Care Provider [phone] Encounter Details Date Type Department Care Team (Latest Contact Info) Description 02/07/2025 Travel Social History Tobacco Use Types Packs/Day [...] as of this encounter Plan of Treatment Upcoming Encounters Date Type Department Care Team ([facility] st Contact Info) Description 03/13/2025 1:30 PM EST Office Visit [facility] MED & PEDS [address] [place], [place] [phone] Ailyn Smart CNP [address] [place], [place] [phone] documented as of this encounter Visit Diagnoses Not on filedocumented in this encounter Additional Health Concerns Assessment Noted Time PHQ-9 Depression Total Score: 2 12/15/19 1:31 PM EDT documented as of this encounter Care Teams Keyseater Operator Relationship Specialty Start Date End Date Ailyn Smart CNP PCP - General Family Medicine 11/24/24 documented as of this encounter
--- OUTSIDE RECORDS SUMMARY | 2025-02-07 21:40 | XMS_ITS | Clinical Summary ---
Author Organization [employer] Address [address] [facility] [address] [place] [address] Care Team Providers Care Lead Scientist Name Role Phone Ailyn Smart JOSSIE Primary Care Provider [phone] Allergies Active Allergy Reactions Criticality Noted Date Comments Acetaminophen 08/24/2023 Other Reaction(s): NAUSEA & VOMITING & DIAPHORESIS Oxycodone 12/31/2011 Other Reaction(s): Unknown Medications cetirizine (ZyrTEC) 10 MG tablet Take 1 tablet by mouth 1 (one) time each day. 022 Active fluticasone (Flonase Allergy Relief) 50 MCG/ACT nasal sprayIndication s:Left acute otitis media Administer 1 spray into each nostril in the morning. Shake gently. Before first use, prime pump. After use, clean tip and replace cap. 16 g 1 022 Active Blood Glucose Monitoring Suppl (FreeStyle Lite) w/Device kit 1 kit in the morning. 1 kit 023 Active FREESTYLE LITE test strip Check blood glucose once daily 50 each 12 023 Active FreeStyle lancets 1 each by Other route in the morning. Check blood glucose 50 each 11 023 Active Alcohol Swabs (Alcohol Prep) pads Check BG once daily 100 each 023 Active hydroCHLOROthia zide (HYDRODiuril) 25 MG tablet TAKE 1 TABLET BY MOUTH EVERY DAY ONE DOSE 30 tablet 5 023 Active naproxen (Naprosyn) 500 MG tablet TAKE 1 TABLET BY MOUTH TWICE A DAY 60 tablet 023 Active Aspirin Low Dose 81 MG EC tablet TAKE 1 TABLET BY MOUTH EVERY DAY 90 tablet 2 Active Ventolin HFA 108 (90 Base) MCG/ACT inhaler INHALE 2 PUFFS EVERY 4 HOURS IF NEEDED FOR WHEEZING. 18 g 3 Active Diclofenac Sodium 1 % gel APPLY 1 INCH TOPICALLY IN THE MORNING AND AT BEDTIME NEEDED FOR PAIN 100 g Active albuterol (2.5 MG/3ML) 0.083% nebulizer solution Take 3 mL (2.5 mg) by nebulization every 6 (six) hours if needed for wheezing or shortness of breath. 75 mL 1 025 2025 Active Acetaminophen Extra Strength 500 MG tabletIndicatio ns:Acute [...] Active Baclofen 10 MG pack 10 mg. 023 Active lidocaine (Lidoderm) 5 % patch daily Active bisacodyl (Dulcolax) 5 MG EC tablet 20 mg. Active metFORMIN (Glucophage) 500 MG tabletIndicatio ns:Type 2 diabetes mellitus without complication, without long-term current use of insulin (HCC) Take 1 tablet (500 mg) by mouth with breakfast and with evening meal. 60 tablet 025 2025 Active simvastatin (Zocor) 20 MG tablet Take 1 tablet (20 mg) by mouth in the evening. 90 tablet 1 Active budesonide (Pulmicort) 90 MCG/ACT inhalerIndicati ons:Mild intermittent asthma with acute exacerbation Inhale 1 puff in the morning and at bedtime. Rinse mouth with water after use to reduce aftertaste and incidence of candidiasis. Do not swallow. 1 each 025 2025 Active Mounjaro 2.5 MG/0.5ML solution auto-injectorIn dications:Type 2 diabetes mellitus without complication, without long-term current use of insulin (HCC) INJECT ONE PEN (=2.5MG) SUBCUTANEOUSLY ONCE A WEEK DIRECTED 2 mL Active amLODIPine (Norvasc) 10 MG tabletIndicatio ns:Primary hypertension Take 1 tablet (10 mg) by mouth Once per day. 30 tablet 11 025 2025 Active gabapentin (Neurontin) 100 MG capsuleIndicati ons:Neuropathy Take 3 capsules (300 mg) by mouth at bedtime. 90 capsule 11 025 2025 Active polyethylene glycol, PEG, 3350 (MiraLax) 17 GM/SCOOP powderIndicatio ns:Other constipation Use 1-2 times daily as needed. 578 g Active terbinafine (LamISIL AT) 1 % cream Apply topically 2 times daily. 42 g 3 023 2024 Discontinued oxymetazoline (Afrin Nasal Blue Bell) 0.05 % nasal spray Administer 2 sprays into each nostril every 12 (twelve) hours if needed for congestion for up to 2 days. Do not use for more than 3 days. 30 mL 024 2024 Discontinued famotidine (Pepcid) 20 MG tablet TAKE 1 TABLET BY MOUTH TWICE A DAY 180 tablet 025 2024 Discontinued predniSONE (Deltasone) 20 MG tablet 2 tabs po daily for 5 days 10 tablet 2024 Discontinued amLODIPine (Norvasc) 5 MG tabletIndicatio ns:Essential (primary) hypertension Take 1 tablet (5 mg) by mouth in the morning. 90 tablet 3 025 2024 Discontinued Tirzepatide (Mounjaro) 2.5 MG/0.5ML solution auto-injector Inject 2.5 mg under the skin 1 (one) time per week. 2 mL 025 2024 Discontinued Active Problems Problem Noted [...] if no improvement or worsening. Morbid obesity ([facility]) 11/23/2011 Resolved Problems Problem Noted Date Diagnosed [...] Encounters Date Type Department Care Team Description 02/07/2025 2:45 PM EDT Office Visit [facility] [address] [place] [address] Ailyn Smart CNP Primary hypertension (Primary Dx); Type 2 diabetes mellitus without complication, without long-term current use of insulin ([facility]); Neuropathy; Other constipation 02/07/2025 Travel 02/02/2025 Telephone [facility] [address] [place] [address] Ailyn Smart CNP chart prep 02/02/[address] [facility] [address] [place] [address] Ailyn Smart CNP Nurse Triage 01/22/[address] [facility] [address] [place] [address] Ailyn Smart CNP Type 2 diabetes mellitus without complication, without long-term current use of insulin (HCC) (Primary Dx) 01/15/2025 Telephone [facility] [address] [place] [address] Ailyn Smart CNP chart prep 01/02/2025 Travel 12/27/2024 Orders Only [facility] [address] [place] [address] Ailyn Smart CNP Mild intermittent asthma with acute exacerbation (Primary Dx) 12/26/2024 Travel 12/20/[address] [facility] MED[facility]INE [address] [place] [phone] Ailyn Smart CNP Prior Authorization 12/20/[address] [facility] [address] [place] [phone] Ailyn Smart CNP Med Refill 12/19/2024 Results Follow-Up [facility] [address] [place] [address] Ailyn Smart CNP POCT A1c, POCT glucose manually resulted, Lipid Panel, Standard, Additional followed-up results: 12/16/2024 Refill [facility] [address] [place] [address] Ailyn Smart CNP Mild intermittent asthma with acute exacerbation 12/14/2024 1:15 PM EDT Office Visit [facility] [address] [place] [address] Ailyn Smart CNP Encounter to establish care (Primary Dx); Encounter for screening for malignant neoplasm of colon; Type 2 diabetes mellitus without complication, without long-term current use of insulin ([facility]); Mild intermittent asthma with acute exacerbation; Essential (primary) hypertension; Acute swimmer's ear of left side; Encounter for immunization; Dietary counseling; Exercise counseling; Class 3 severe obesity due to excess calories with serious comorbidity and body mass index (BMI) of 50.0 to 59.9 in adult; RUQ pain 12/14/2024 Travel 12/14/2024 Telephone [facility] [address] [place] [address] Ailyn Smart CNP chart prep 11/20/2024 8:40 AM EDT Office Visit [facility] [address] [place] [phone] David Ortiz MD Influenza-like symptoms (Primary Dx); Mild intermittent asthma with acute exacerbation; Acute bilateral low back pain with left-sided sciatica 11/20/2024 Travel from Last 3 Months Immunizations Immunization [...] Mass Index 53.59 02/07/2025 2:40 PM EDT Plan of Treatment Upcoming Encounters Date Type Department Care Team (Late st Contact Info) Description 03/13/2025 1:30 PM EST Office Visit [facility] [address], [place] [phone] Ailyn Smart, [employer] [address], [place] [phone] Health Maintenance Due Date Last Done Comments CT Colonography 1975 Colonoscopy 1975 Colorectal Cancer Screening 1975 FIT DNA/Cologuard 1975 FIT 1975 FOBT 1975 Sigmoidoscopy 1975 Diabetes: Foot Exam 01/05/1986 Eye Exam 01/05/1986 Hepatitis B Vaccines (1 of 3 - 19+ 3-dose series) 01/05/1995 Pap Smear 01/05/1997 Cervical Cancer Screening 01/05/2006 HPV/Cotest 01/05/2006 COVID-19 Vaccine ( season) 2024 03/13/2024, 03/13/2024, 03/16/2023, Additional history exists Influenza Vaccine (#1) 2024 , 03/13/2024, 02/17/2023, Additional history exists Diabetes: Hemoglobin A1C 03/20/2025 025, 12/14/2024, 02/17/2023, Additional history exists Mammogram 07/17/2025 07/17/2024, 06/18, 10/16/2021, Additional history exists Tobacco Screening 11/20/2025 11/20/2024 Alcohol/Substance Use Screening 12/14/2025 12/14/2024 Depression Screening 12/14/2025 12/14/2024, 12/15/19 25 Disability Screening 12/14/2025 12/14/2024 Family Planning (PISQ) 12/14/2025 12/14/2024 SDOH Screening 12/14/2025 12/14/2024 Diabetes: Urine Protein Screening 12/19/2025 12/19/2024 Lipid Panel 12/19/2025 12/19/2024, 07/2 09/2021, 05/29/2021, Additional history exists Zoster Vaccines (1 of 2) 01/05/2026 DTaP/Tdap/Td Vaccines (3 - Td or Tdap) 03/04/2032 03/04/2022, 01/21/2017 RSV Patients and Patients Aged 60 years or older (1 - 1-dose 75+ series) 01/05/2051 Pneumococcal Vaccine: Pediatrics (0 to 5 Years) and At-Risk Patients (6 to 49) Years Completed 12/14/2024, 08/16/2017 HIV Screening Completed 12/19/2024 Hepatitis C Screening Completed 12/19/2024 HIB Vaccines Aged Out No longer eligi [...] without long-term current use of insulin (HCC) HEPATITIS B SURFACE ANTIGEN, EIA Routine 12/19/2024 6:48 AM EDT Encounter to establish care HEPATITIS B CORE AB TOTAL Routine 12/19/2024 6:48 AM EDT Encounter to establish care HEPATITIS B SURFACE ANTIBODY, QUALITATIVE Routine 12/19/2024 6:48 AM EDT Encounter to establish care HEPATITIS C AB W/REFL TO HCV RNA, QN, PCR Routine 12/19/2024 6:48 AM EDT Encounter to establish care HIV 1/2 ANTIGEN/ANTIBODY, FOURTH GENERATION W/RFL Routine 12/19/2024 6:48 AM EDT Encounter to establish care TSH W/REFLEX TO FT4 Routine 12/19/2024 6 :48 AM EDT Encounter to establish care COMPREHENSIVE METABOLIC PANEL Routine 12/19/2024 6:48 AM EDT Encounter to establish care CBC WITH AUTO DIFFERENTIAL Routine 12/19/2024 6:48 AM EDT Encounter to establish care HEMOGLOBIN A1C Routine 12/19/2024 6:48 AM EDT Encounter to establish care LIPID PANEL, STANDARD Routine 12/19/2024 6:48 AM EDT Encounter to establish care ALBUMIN, RANDOM URINE W/CREATININE Routine 12/19/2024 6:43 AM EDT Essential (primary) hypertension POCT GLYCATED HEMOGLOBIN, TOTAL Routine 12/14/2024 2:18 [...] TOMOSYNTHESIS BILATERAL Routine 07/17/2024 7:35 AM EDT from Last 3 Months or Most Recently Relevant to Health Maintenance Results * POCT glucose manually resulted (02/07/2025 2:42 PM EDT) Only the most recent of2 resultswithin the time period is included. Glucose Blood, POC 143 60 - 200 mg/dL QC Media Lot # Comment:[id number] Lot# Expiration Date Comment:05/27/2025 Blood Capillary blood specimen / Unknown 02/07/2025 2:42 PM EDT [facility] POINT OF CARE TEST ENTER/ EDIT ORDERABLES Final Result * TSH W/Reflex to FT4 (12/19/2024 6:48 AM EDT) TSH reflex Free T4 2.67 0.32 - 4.0 uIU/mL [facility] Blood Venous blood specimen / Unknown 12/19/2024 6:48 AM EDT 12/19/2024 6:48 AM EDT [facility] LAB BLOOD ORDERABLES Roxana l Result [facility] [address] [place], [place] [phone] * (ABNORMAL) CBC auto differential (12/19/2024 6:48 AM EDT) White Blood Count 7.9 4.8 - 10.8 X10*3/uL [facility] Red Blood Count 4.94 4.20 - 5.50 X10*6/uL [facility] Hemoglobin 12.6 12.0 - 16.0 g/dl [facility] Hematocrit 38.3 37.0 - 47.0 % [facility] Mean Corpuscular Volume 77.5(L) 80.0 - 98.0 fL [facility] Mean Corpuscular Hemoglobin 25.5(L) 27.0 - 33.0 pg [facility] Mean Corpuscular HGB Conc 32.9 31.0 - 35.0 g/dl [facility] Red Cell Distribution Width 14.2 11.0 - 16.0 % [facility] Platelet Count 234 160 - 400 X10*3/uL [facility] Mean Platelet Volume 11.3 9.4 - 12.3 fL [facility] Neutrophils Percent Auto 57.6 45 - 73 % [facility] Imm Gran Pct Auto 0.5(H) 0.0 - 0.4 % [facility] Lymphocytes Percent Auto 32.4 20 - 40 % [facility] Monocytes Percent Auto 5.6 2 - 11 % [facility] Eosinophils Percent Auto 3.4 0 - 4 % [facility] Basophils Percent Auto 0.5 0 - 2 % [facility] NRBC Pct Auto 0.0 0.0 - 0.2 /100WBC [facility] Neutrophils Absolute Auto 4.5 2.0 - 8.3 x10*3/uL [facility] Imm Gran Abs Auto 0.04(H) 0.00 - 0.03 X10*3/uL [facility] Lymphocytes Absolute Auto 2.6 1.2 - 4.9 X10*3/uL [facility] Monocytes Absolute Auto 0.4 0.1 - 1.2 X10*3/uL [facility] Eosinophils Absolute Auto 0.3 0.0 - 0.4 X10*3/uL [facility] Basophils Absolute Auto 0.0 0.0 - 0.2 X10*3/uL [facility] NRBC Abs Auto 0.000 0.0 - 0.012 X10*3/uL [facility] Blood Venous blood specimen / Unknown 12/19/2024 6:48 AM EDT 12/19/2024 6:48 AM EDT [facility] LAB BLOOD ORDERABLES Roxana l Result [facility] [address] [place] [phone] * Hepatitis C Antibody with Reflex to HCV, RNA, Quantitative, Real-Time PCR (12/19/2024 6:48 AM EDT) Hepatitis C Antibody Nonreactive Nonreactive [facility] Comment:Antibodies to HCV no t detected; does not exclude early acuteHCV infection. Blood Venous blood specimen / Unknown 12/19/2024 6:48 AM EDT 12/19/2024 6:48 AM EDT [facility] LAB BLOOD ORDERABLES Roxana l Result Performing Organization Address City/[facility] Co de Phone Number [facility] [address] [place] [phone] * Hepatitis B surface antigen, EIA (12/19/2024 6:48 AM EDT) Pathologist [facility] Hepatitis B Surface Ag Negative Negative [facility] Blood Venous blood specimen / Unknown 12/19/2024 6:48 AM EDT 12/19/2024 6:48 AM EDT [facility] LAB BLOOD ORDERABLES Roxana l Result Performing Organization Address [facility] Co de Phone Number [facility] [address] [place] [phone] * Hepatitis B Core Antibody, Total (12/19/2024 6:48 AM EDT) Pathologist [facility] Hepatitis B Core Antibody Nonreactive Nonreactive [facility] Blood Venous blood specimen / Unknown 12/19/2024 6:48 AM EDT 12/19/2024 6:48 AM EDT [facility] LAB BLOOD ORDERABLES Roxana l Result Performing Organization Address [facility] Co de Phone Number [facility] [address] [place] [phone] * HIV-1/2 Antigen and Antibodies, Fourth Generation, with Reflexes (12/19/2024 6:48 AM EDT) Pathologist [facility] HIV AB/AG Nonreactive Nonreactive [facility] Comment:HIV-1 p24 Ag and/or HIV-1/HIV-2 Ab not detected.A test result that is nonreactive does not exclude thepossibility of exposure to or infection with HIV-1 and/orHIV-2. Nonreactive results in this assay for individualswith prior exposure to HIV-1 and/or HIV-2 may be due toantigen and antibody levels that are below the limit ofdetection of this assay.The [employer] HIV Ag/Ab Combo assay result andsupplemental assay results should be interpreted inconjunction with the patient's clinical presentation,history and other laboratory results. If the results areinconsistent with clinical evidence, additional testing issuggested to confirm the result. Blood Venous blood specimen / Unknown 12/19/2024 6:48 AM EDT 12/19/2024 6:48 AM EDT [facility] LAB BLOOD ORDERABLES Roxana l Result Performing Organization Address [facility]/ZIP Co de Phone Number [facility] [address] [place] [phone] * Hepatitis B Surface Antibody, Qualitative (12/19/2024 6:48 AM EDT) Pathologist [facility] ~Hepatitis B Surface Antibody NONREACTIVE Nonreactive [facility] Comment:Nonreactive: < 8.00 mIU/mL Blood Venous blood specimen / Unknown 12/19/2024 6:48 AM EDT 12/19/2024 6:48 AM EDT [facility] LAB BLOOD ORDERABLES Roxana l Result Performing Organization Address [facility] Co de Phone Number [facility] [address] [place] [phone] * (ABNORMAL) Hemoglobin A1c (12/19/2024 6:48 AM EDT) Hemoglobin A1c 8.1(H) <6.0 % [facility] Comment:Hemoglobin A1C Refer ence Range Adults: 4.8 - 6.0 % Non diabetic: < 6.0 % Goal: < 7.0 %Additional Action Suggested: > 8.0 %Note: Hemoglobin A1c results are invalid for patients with abnormal amounts of HbF. Blood transfusions may impact the HbA1c concentration in the patient sample. Estimated Average Glucose 186 mg/dL [facility] Comment:eAG = Estimated ave rage glucose which is %A1C expressed asaverage glucose, using the formula of the [id number] Glucose study (ADAG), Diabetes Care, Vol.31,#8,Nov. 2007 Blood Venous blood specimen / Unknown 12/19/2024 6:48 AM EDT 12/19/2024 6:48 AM EDT [facility] LAB BLOOD ORDERABLES Roxana l Result Performing Organization Address [facility] Co de Phone Number [facility] [address] [place] [phone] * (ABNORMAL) Lipid Panel, Standard (12/19/2024 6:48 AM EDT) Triglycerides 154(H) <150 mg/dL [facility] Comment:Desirable Triglyceri de: less than 150 mg/dLBorderline High Triglyceride 150-199 mg/dLHigh Triglyceride: 200-499 mg/dLVery High Triglyceride: greater than or equal to 5OO mg/dL Cholesterol 236(H) <200 mg/dL [facility] Comment:Desirable Cholestero l: less than 200 mg/dLBorderline High Cholesterol: 200-239 mg/dLHigh Cholesterol: greater than 239 mg/dL LDL Cholesterol Calculated 165(H) <100 mg/dL [facility] Comment:Desirable LDL: less than 100 mg/dLNear Optimal/Above Optimal LDL: 110- 129 mg/dLBorderline High LDL: 130-159 mg/dLHigh LDL: 160-189 mg/dLVery High LDL: greater than or equal to 190 mg/dL HDL Cholesterol 41 >40 mg/dL [facility] Comment:Desirable HDL: great er than 40 mg/dL Note: This HDL assay may give artificially low results in patients with liver disease. Blood Venous blood specimen / Unknown 12/19/2024 6:48 AM EDT 12/19/2024 6:48 AM EDT [facility] LAB BLOOD ORDERABLES Roxana l Result Performing Organization Address [facility]/ZIP Co de Phone Number [facility] [address] [place] [phone] * (ABNORMAL) Comprehensive Metabolic Panel (12/19/2024 6:48 AM EDT) Sodium 138 135 - 145 mmol/L [facility] Potassium 4.3 3.3 - 5.1 mmol/L [facility] Chloride 104 96 - 108 mmol/L [facility] Carbon Dioxide 28 22 - 29 mmol/L [facility] Anion Gap 10(L) 12 - 20 [facility] Urea Nitrogen (BUN) 10 9 - 16 mg/dL [facility] Creatinine, Serum 0.82 0.5 - 1.4 mg/dL [facility] Estimated Glomerular Filt Rate >60 [facility] Comment:Chronic Kidney Disea se: Estimated GFR < 60 mL/min/1.22q1Pvirtb Kidney Disease: Estimated GFR < 15 mL/min/1.73m2 Glucose 157(H) 60 - 115 mg/dL [facility] Calcium 9.2 8.4 - 10.2 mg/dL [facility] Bilirubin, Total 0.4 0.0 - 1.0 mg/dL [facility] Aspartate Amino Transferase 16 5 - 31 U/L [facility] Alanine Aminotransferase 15 0 - 31 U/L [facility] Total Protein 7.0 6.5 - 8.0 g/dL [facility] Albumin Level 4.0 3.5 - 5.0 g/dL [facility] Alkaline Phosphatase 80 39 - 117 U/L [facility] Blood Venous blood specimen / Unknown 12/19/2024 6:48 AM EDT 12/19/2024 6:48 AM EDT Ailyn Smart [facility] BLOOD ORDERABLES Roxana l Result Performing Organization Address City/[facility]/ZIP Co de Phone Number [facility] [address] [place] [phone] * Albumin, Random Urine W/Creatinine (12/19/2024 6:43 AM EDT) Creatinine, Urine 179.42 mg/dL [facility] Microalbumin Urine 6.0 mg/L [facility] Microalbum Creatinine Ratio Ur 3.3 <30 ug/mg cr [facility] Comment:Albumin/Creatinine R atio Reference Ranges: Normal: < 30 ug/mg creatinine Microalbuminuria: 30 - 300 ug/mg creatinineClinical Albuminuria: > 300 ug/mg creatinine Urine (Urine, Random) 12/19/2024 6:43 AM EDT 12/19/2024 7:39 AM EDT Result [facility] LAB URINE ORDERABLES Roxana l Result Performing Organization Address [facility] Co de Phone Number [facility] [address] [place] [phone] * (ABNORMAL) POCT A1c (12/14/2024 2:18 PM EDT) Hemoglobin A1C 8.1(A) 4.0 - 5.7 % QC Media Lot # Comment:[id number] Lot# Expiration Date Comment:07/24/2026 Blood 12/14/2024 2:18 PM EDT Result [facility] POINT OF CARE TEST ENTER/ EDIT ORDERABLES Final Result * Influenza B (ID NOW Rapid Molecular) (11/20/2024 8:53 AM EDT) Influenza B Negative Negative, Indeterminate [facility] Swab 11/20/2024 8:53 AM EDT David Ortiz MD POINT OF CARE TEST ENTER/EDIT OR DERABLES Final Result Performing Organization Address [facility] Co de Phone Number [facility] [address] [place] [phone] * Influenza A (ID NOW Rapid Molecular) (11/20/2024 8:53 AM EDT) Influenza A Negative Negative, Indeterminate [facility] Swab 11/20/2024 8:53 AM EDT us David Ortiz MD POINT OF CARE TEST ENTER/EDIT OR DERABLES Final Result [facility] [address] [place] [phone] * POCT Rapid COVID Ag (11/20/2024 8:53 AM EDT) [facility] Rapid COVID Ag Negative Swab 11/20/2024 8:53 AM EDT us David Ortiz MD POINT OF CARE TEST ENTER/EDIT OR DERABLES Final Result * POCT rapid strep A manually resulted (11/20/2024 8:53 AM EDT) [facility] Rapid Strep A Screen Negative Negative, None Detected Swab 11/20/2024 8:53 AM EDT us David Ortiz MD POINT OF CARE TEST ENTER/EDIT OR DERABLES Final Result * BI Mammogram Screening Tomosynthesis Bilateral (07/17/2024 7:35 AM EDT) Anatomical Region Laterality Modality Breast Bilateral Mammography 07/17/2024 7:35 AM EDT Narrative 07/22/2024 5:24 PM EDT [address] [place] [address] Mammography Report Signed Patient: Ebony Chao I MR#: [id number] : 1975 Acct:[id number] Age/Sex: 49 / F ADM Date: 07/17/24 Loc: HO.MAMMO Attending Dr: Meredith Morris MD Ordering Physician: Meredith Morris MD Results: 1Negati ve Date of Service: 07/17/24 Follow Up: 1 Year From Orig inal Mammogram Procedure(s): MM tomosynthesis screening BI Accession Number(s): [id number] cc: Meredith Morris MD EXAMINATION: MM SCREENING [...] Jenniffer Peraza DO 07/22/2024 05:21 PM EDT RP Dictated By: Jenniffer Peraza DO Signed By: <Electronically signed by Jenniffer Peraza DO in OV> 07/22/24 1721 DD/ 0735 TD/TT: 07/17/24 0745 Stone Operator: Procedure Note Donotuseinterpreter, Image - 07/22/2024 [facility] [address] [place] [address] Mammography Report Signed Patient: Ebony Chao IMR#: [id number] : 1975Acct:[id number] Age/Sex: 49 / FADM Date: 07/17/24 Loc: HO.MAMMO Attending Dr: Meredith Morris MD Ordering Physician: Meredith Morris MDResults: 1Negati ve Date of Service: 07/17/24Follow Up: 1 Year From Orig inal Mammogram Procedure(s): MM tomosynthesis screening BI Accession Number(s): [id number] cc: Meredith Morris MD EXAMINATION: MM SCREENING [...] 07/22/24 1721 DD/ 0735 TD/TT: 07/17/24 0745 Stone Operator: Meredith Morris MD IMG BI PROCEDURES Edited Result - Final from Last 3 Months or Most Recently Relevant to Health Maintenance Insurance * Guarantor: Ebony Chao I Account Type Relation to Patient Date of Phone Billing Address Personal/Family Self [address] [place] [address] [facility] C3 Member Subscriber Plan / Payer (Ef fective 2022-Present) Name:Ebony Chao I Relation to Subscriber:Self Name:Ebony Chao I Payer ID:Not on file Group ID:Not on file Type:Medicaid Address: [facility] [address] [place] [id number] GENERIC TPL Care Teams Lead Scientist Relationship Specialty Start Date End Date Ailyn Smart CNP PCP - General Family Medicine 11/24/24
--- OUTSIDE RECORDS SUMMARY | 2025-02-07 21:40 | XMS_ITS | Encounter Summary ---
Author Organization [employer] Address [address] [facility] 7t [place] [address] Care Team Providers Care Marine Firefighter Name Role Phone Ailyn Smart CNP Primary Care Provider [phone] [phone] Reason for Visit * Reason Onset Date Comments Nurse Triage 02/02/2025 Encounter Details Date Type Department Care Team ([facility] st Contact Info) Description 02/02/2025 Telephone [facility] MEDICINE [address] [place] [address] Ailyn Smart CNP [address] [place], [place] [phone] Nurse Triage Social History Tobacco Use Types Packs/Day Years [...] encounter Miscellaneous Notes * Telephone Encounter - Rosa Maria Reyes RN - 02/02/2025 11:30 AM EDT TC placed to patient [phone] in regards to below message via [employer] interpreters (Denis #[id number]). Patient reports she called because she would like to see her PCP in regards to her Mounjaro. Patient reports she started Monjaro on 12/25-12/26 and a couple days later noticed difficulty sleeping and c onstipation. Patient reports she has continued taking the medication, patient administers the medication weekly on Wednesday. Patient denies any OTC medications for constipation with Mounjaro. Patient also reports burning sensation in bilateral hands and feet x10 months. Patient reports she discussed this with Dr. Morris in the past but did not inform her new PCP. Patient reports experiencing numbness, tingling and cramps at times in bilateral hands and feet. Patient also reports often times they feel heavy . Patient advised to continue Mounjaro medication until she sees her PCP for sick appt on 02/07/25 at 2:45pm as PCP may be able to RX medication for constipation. Patient verablized understanding and agreeable to POC. Patient to f/u PRN. Protocol Used: Medication Question Call (Adult) Protocol-Based Disposition: Callback or Video Visit by PCP Today Video visit not offered Positive Triage Question: * Caller has NON-URGENT medicine question about med that primary care doctor (or SALOONKEEPER/PA) or specialist prescribed and triager unable to answer question * All higher-acuity triage questions were negative Care Advice Discussed: * Reasons To Call Back - You have any more questions - You become worse * Telephone Encounter - Rickie Ezra - 02/02/2025 10:53 AM EDT Symptom: Medication Reaction Outcome: Schedule an urgent appointment (within 1 hour) or talk to a nurse or provider soon Reason: Caller denied all higher acuity questions Please contact pt at [phone]. (Romansh Speaker) documented in this encounter Plan of Treatment Upcoming Encounters Date Type Department Care Team ([facility] st Contact Info) Description 03/13/2025 1:30 PM EST Office Visit [facility] MED & PEDS [address] [place], [place] [phone] Ailyn Smart CNP [address] [place] [address] documented as of this encounter Visit Diagnoses Not on filedocumented in this encounter Additional Health Concerns Assessment Noted Time PHQ-9 Depression Total Score: 2 12/15/19 1:31 PM EDT documented as of this encounter Care Teams Marine Firefighter Relationship Specialty Start Date End Date Ailyn Smart CNP PCP - General Family Medicine 11/24/24 documented as of this encounter
== END 2025-02-07 15:26 | disposition home or self-care (01) ==
LOC: HO.CHCLDS 15:25
DX: E11.9 Type 2 diabetes mellitus without complications (principal)
CPT/HCPCS: 36415; 83036

== ENCOUNTER 2025-03-13 14:01 | Outpatient (REF) | payer MEDICAID, SELFPAY ==
--- OUTSIDE RECORDS SUMMARY | 2025-03-13 13:30 | XMS_ITS | Encounter Summary ---
Author Organization [employer] Address [address] [place] [address] [facility] [place] [address] Care Team Providers Care Irrigation Flume Layer Name Role Phone Ailyn Smart CNP Primary Care Provider [phone] Reason for Referral * Medications - Closed Specialty Diagnoses / Procedures Referred By Destiny swain Referred To Contact Diagnoses Type 2 diabetes mellitus without complication, without long-term current use of insulin (HCC) Ailyn Smart CNP [address] [place] [address] Phone: tel: fax: Referral ID Status Reason Start Date Expiration Date Visits Re quested Visits Authorized [id number] Closed 1 1 Reason for Visit * Reason Comments Follow-up dm Encounter Details Date Type Department Care Team (Late st Contact Info) Description 03/13/2025 1:30 PM EST Office Visit [facility] MED & PEDS [address] [place], [place] [phone] Ailyn Smart CNP [address] [place], [place] [phone] Primary hypertension (Primary Dx); Type 2 diabetes mellitus without complication, without long-term current use of insulin (HCC); Mild intermittent asthma with acute exacerbation Social [...] Sign Reading Time Taken Comments Blood Pressure 154/92 03/13/2025 1:41 PM EST Pulse 84 03/13/2025 1:41 PM EST Temperature 36.8 C (98.2 F) 03/13/2025 1:41 PM EST Respiratory Rate 14 03/13/2025 1:41 PM EST Oxygen Saturation 99% 03/13/2025 1:41 PM EST Inhaled Oxygen Concentration - - Weight 129 kg (284 lb) 03/13/2025 1:41 PM EST Height 158 cm (5' 2.21 ) 03/13/2025 1:41 PM EST Body Mass Index 51.59 03/13/2025 1:41 PM EST documented in this encounter Progress Notes * Ailyn Smart CNP - 03/13/2025 1:30 PM EST Subjective Patient ID: Ebony Jama is a 50 y.o. female who presents for Diabetes and HTN f/u. HPI Pt is taking metformin and Mounjaro for management of her T2DM. Last A1c was 6.1 in 2024. She was having some constipation with GLP 1 and was started on bowel regimen and recommended to increase hydration. We also initiated gabapentin for her neuropathy. For her hypertension, we increased amlodipine to 10mg. She denies taking her medication today yet as she didn't eat anything today. Current concerns - Missed Mounjaro injection for 2 weeks due to inability to obtain refill before being seen by provider - Uses injection for diabetes management, inquired about possible dose increase - Planning cruise vacation in February 2025, routinely brings emergency asthma medications in case of exacerbation (prednisone, rescue inhaler) when traveling - Uses Pulmicort inhaler and nebulizer machine for asthma - Takes amlodipine for blood pressure, didn't take today due to not eating yet. - Reports feeling better in regards to GI side effects with prescribed meds for stomach issues - Finds dietary changes challenging, especially avoiding rice and sweets, but has noticed improvement in blood results and physical appearance - Reports recent weight loss of 11 lbs, approximately 30 lbs lost since November 2024 - Not currently attending gym due to time constraints, plans to start when she returns from vacation Review of Systems Objective Vitals: 03/13/25 1341 BP: (!) 154/92 Pulse: 84 Resp: 14 Temp: 98.2 ??F (36.8 ??C) SpO2: 99% Wt Readings from Last 4 Encounters: 03/13/25 284 lb (129 kg) 02/07/25 295 lb (134 kg) 12/14/24 318 lb (144 kg) 11/20/24 314 lb (142 kg) Physical Exam Constitutional: Appearance: Normal appearance. She [...] Assessment/Plan Problem List Items Addressed This Visit Primary Hypertension BP above goal Pt did not take medication Advised adherence to meds as prescribed and ongoing lifestyle changes Asthma Relevant Medications albuterol (Ventolin HFA) 108 (90 Base) MCG/ACT inhaler budesonide (Pulmicort) 90 MCG/ACT inhaler predniSONE (Deltasone) 20 MG tablet Provided 5d prednisone burst and refilled inhalers for her to have on hand during her travel. Other Visit Diagnoses Type 2 diabetes mellitus without complication, without long-term current use of insulin ([facility]) Relevant Medications Tirzepatide (Mounjaro) 2.5 MG/0.5ML solution auto-injector Other Relevant Orders POCT glucose manually resulted (Completed) Hemoglobin A1c Lab Results Component Value Date HGBA1C 6.7 (H) 02/07/2025 Fasting glucose today was 91, which is in range Disease course is stable on current regimen, no episodes of hypoglycemia Based on today's A1c level will uptitrate her Mounjaro to 5mg. She will continue working on lifestyle modifications Eye exam requested-[facility] vision center Foot exam completed today and was normal F/u 3 months offer pap next visit documented in this encounter Plan of Treatment Scheduled Orders Name Type Priority Associated Diagnoses Orde r Schedule Hemoglobin A1c Lab Routine Type 2 diabetes mellitus without complication, without long-term current use of insulin ([facility]) Expected: 03/13/2025 (Approximate), Expires: 03/13/2026 documented as of this encounter Goals Goal Patient Goal Type Associated Problems Recent Progress Patient-Stated? Author Help patients manage their type 2 diabetes Care Plan Help patients manage their type 2 diabetes No Jennifer Whitaker MA Weekly blood pressure task Care Plan Weekly blood pressure task No Jennifer Whitaker MA Help patients manage their type 2 diabetes Care Plan Help patients manage their type 2 diabetes No Jennifer Whitaker MA Patient has chronic kidney disease Care Plan Patient has chronic kidney disease No Jennifer Whitaker MA Weekly blood pressure task Care Plan Weekly blood pressure task No AvalosJennifer Bundy MA Patient has chronic kidney disease Care Plan Patient has chronic kidney disease No Jennifer Whitaker MA documented as of this encounter Procedures Procedure Name Priority Date/Time Associated Diagnosis Comments POCT GLUCOSE Routine 03/13/2025 1:43 PM EST Type 2 diabetes mellitus without complication, without long-term current use of insulin (HCC) documented in this encounter Results * POCT glucose manually resulted (03/13/2025 1:43 PM EST) Glucose Blood, POC 91 60 - 200 mg/dL QC Media Lot # Comment:[id number] Lot# Expiration Date Comment:07/24/2025 Blood Capillary blood specimen / Unknown 03/13/2025 1:43 PM EST Ailyn Smart CNP POINT OF CARE TEST ENTER/ EDIT ORDERABLES Final Result documented in this encounter Visit Diagnoses Diagnosis Primary hypertension- Primary Unspecified essential hypertension Type 2 diabetes mellitus without complication, without long-term current use of insulin (HCC) Mild intermittent asthma with acute exacerbation documented in this encounter Additional Health Concerns Active Problems Noted Date Diagnosed Date Help patients manage their type 2 diabetes 03/13 Weekly blood pressure task 03/13/2025 Help patients manage their type 2 diabetes 03/13 Patient has chronic kidney disease 03/13/2025 Weekly blood pressure task 03/13/2025 Patient has chronic kidney disease 03/13/2025 Assessment Noted Time PHQ-9 Depression Total Score: 2 12/15/19 1:31 PM EDT documented as of this encounter Care Teams Irrigation Flume Layer Relationship Specialty Start Date End Date Ailyn Smart CNP PCP - General Family Medicine 11/24/24 documented as of this encounter
--- OUTSIDE RECORDS SUMMARY | 2025-03-13 17:58 | XMS_ITS | Encounter Summary ---
Author Organization [employer] Address [address] [facility] [address] 7[address] [place] [address] Care Team Providers Care Manager Food Beverage Name Role Phone Ailyn Smart CNP Primary Care Provider [phone] Reason for Visit * Reason Onset Date Comments Med Refill 12/20/2024 Encounter Details Date Type Department Care Team (Late st Contact Info) Description 12/20/2024 Telephone [facility] MEDICINE [address] [place] [address] Ailyn Smart CNP [address] [place], [place] [phone] Med Refill Social History Tobacco Use Types [...] 5 % patch To be sent to: [facility]/pharmacy #[id number] [place] [address] documented in this encounter Plan of Treatment Not on file documented as of this encounter Visit Diagnoses Not on filedocumented in this encounter Additional Health Concerns Assessment Noted Time PHQ-9 Depression Total Score: 2 12/15/19 1:31 PM EDT documented as of this encounter Care Teams Manager Food Beverage Relationship Specialty Start Date End Date Aliyn Smart CNP PCP - General Family Medicine 11/24/24 documented as of this encounter
--- OUTSIDE RECORDS SUMMARY | 2025-03-13 17:58 | XMS_ITS | Encounter Summary ---
Author Organization [employer] Address [address] [facility] [address] 7[address] [place] [address] Care Team Providers Care Artist And Repertoire Manager Name Role Phone Ailyn Smart CNP Primary Care Provider [phone] Encounter Details Date Type Department Care Team (Latest Contact Info) Description 03/13/2025 Travel Social History Tobacco Use Types Packs/Day [...] on file documented as of this encounter Goals Goal [...] blood pressure task No Jennifer Whitaker MA Patient has chronic kidney disease Care Plan Patient has chronic kidney disease No Jennifer Whitaker MA documented as of this encounter Visit Diagnoses Not on filedocumented in this encounter Additional Health Concerns Active [...] documented as of this encounter Care Teams Artist And Repertoire Manager Relationship Specialty Start Date End Date Ailyn Smart CNP PCP - General Family Medicine 11/24/24 documented as of this encounter
--- OUTSIDE RECORDS SUMMARY | 2025-03-13 17:58 | XMS_ITS | Clinical Summary ---
Author Organization [address] [facility] Address [address] [place] [address] Phone Care Team Providers Care Dispensing Optician Apprentice Name Role Phone Unavailable Primary Care Provider [...] Encounters Date Type Department Care Team Description 02/23/2025 10:00 AM EST Clinical Support [address] [address] Visit for suture removal (Primary Dx) 02/14/2025 Results Follow-Up [address] [address] Gray Valdovinos MD 02/09/2025 10:30 AM EDT Procedure visit [address] [address] Gray Valdovinos MD Lipoma of buttock (Primary Dx) 01/31/[address] [address] Gray Valdovinos MD from Last 3 Months [...] Sign Reading Time Taken Comments Blood Pressure 166/102 02/09/2025 10:28 AM EDT Pulse 85 02/09/2025 10:28 AM EDT Temperature 36.3 C (97.3 F) 02/09/2025 10:28 AM EDT Respiratory Rate - - Oxygen Saturation - - Inhaled Oxygen Concentration - - Weight 133 kg (293 lb) 02/09/2025 10:28 AM EDT Height 162.6 cm (5' 4 ) 02/09/2025 10:28 AM EDT Body Mass Index 50.29 02/09/2025 10:28 AM EDT Plan of Treatment Health Maintenance Due Date Last Done Comments Breast Cancer Screening 1975 Colorectal Cancer Screening: Colonoscopy 1975 Diabetes: Annual Foot Exam 01/05/1986 Diabetes: Annual Retina Eye Exam 01/05/1986 Hepatitis B Vaccines (1 of 3 - 19+ 3-dose series) 01/05/1995 Cervical Cancer Screening: Pap Smear 01/05/1997 Depression Screening 04/19/2024 Social Influencers of Health Screening 09/26/2024 COVID-19 Vaccine ( season) 2024 03/13/2024, 03/16/2023, 04/22/2022, Additional history exists Influenza Vaccine (#1) 2024 , 02/17/2023, 01/13/2022, Additional history exists Diabetes: Annual Urine Albumin-Creatinine Ratio (uACR) 02/09/2025 Diabetes: Blood Sugar Control Test (HGBA1C) 08/08/2025 02/07/2025, 12/19/2024, 12/14/2024 Diabetes: Annual GFR (Glomerular Filtration Rate) 12/19/2025 12/19/2024 Hypertension/CHF/CAD Annual BMP Blood Test 12/19/2025 12/19/2024 Cholesterol Screening (Lipid Panel) 12/19/2029 12/19/2024, 11/11/2021 DTaP,Tdap,and Td Vaccines (3 - Td or Tdap) 03/04/2032 03/04/2022, 01/21/2017 RSV Immunization Adult Patients (1 - 1-dose 75+ series) 01/05/2051 Pneumococcal Vaccine: Pediatrics (0 to 5 Years) and At-Risk Patients (6 to 49 Years) Completed 12/14/2024, 08/16/2017 HIV Screening Completed 12/19/2024 [...] Procedure Name Priority Date/Time Associated Diagnosis Comments SUTURE REMOVAL Routine 02/23/2025 9:41 AM EST Visit for suture removal TISSUE EXAM Routine 02/09/2025 10:42 AM EDT Lipoma of buttock from Last 3 Months Results * SUTURE REMOVAL (02/23/2025 9:41 AM EST) Beatriz Torres MA - 02/23/2025 9:41 AM EST Beatriz Coronado MA 02/23/2025 9:42 AM Suture Removal Date/Time: 02/23/2025 9:41 AM Performed by: Beatriz Coronado MA Authorized by: Gray Valdovinos MD Burna protocol: Patient identity confirmed: Verbally with patient Location: Location: Trunk Procedure details: Wound appearance: No signs of infection Number of sutures removed: 4 Post-procedure details: Post-removal: Antibiotic ointment applied Procedure completion: Tolerated us Gray Valdovinos MD IN CLINIC/BEDSIDE ORDERABLES Fi nal Result * Tissue exam (02/09/2025 10:42 AM EDT) Final Diagnosis Skin and soft tissue, left buttock, excision: Nevus lipomatosus superficialis 02/13/2025 4:41 PM EDT [facility] at 1641 EDT Clinical Information Lipoma of buttock (D17.1) 02/13/2025 4:41 PM EDT [facility] Gross Description A. Buttock, Left, lipoma: Labeled buttock L . Received in formalin is a 2.3 x 1.4 cm wrinkled, johnson-white skin ellipse is excised to a maximum depth of 1.7 cm. The deep margin is inked blue. The specimen is serially sectioned revealing a yellow-white and glistening cut surface. credit representative sections are submitted in two cassettes, one and two pieces, respectively. KR 02/13/2025 4:41 PM EDT [facility] Disclaimer Unless otherwise specified, all tissue is 10% NB formalin fixed and paraffin embedded. 02/13/2025 4:41 PM EDT [facility] Tissue Structure of left buttock / Unknown Non-blood Collection / Unknown 02/09/2025 10:42 AM EDT 02/09/2025 10:51 AM EDT us Gray Valdovinos MD LAB PATHOLOGY ORDERABLES Final Result [facility] [address] [place] [address], from Last 3 Months Insurance [place] - [place]
--- OUTSIDE RECORDS SUMMARY | 2025-03-13 17:58 | XMS_ITS | Encounter Summary ---
Author Organization [employer] Address [address] [facility] 7t [place] [address] Care Team Providers Care Security Public Safety Officer Name Role Phone Ailyn Smart CNP Primary Care Provider [phone] Reason for Visit * Reason Onset Date Comments chart prep 03/12/2025 Encounter Details Date Type Department Care Team ([facility] st Contact Info) Description 03/12/[address] [facility] MED & PEDS [address] [place], [place] [phone] Ailyn Smart CNP [address] [place] [address] chart prep Social History Tobacco Use Types [...] documented as of this encounter Care Teams Security Public Safety Officer Relationship Specialty Start Date End Date Ailyn Smart CNP PCP - General Family Medicine 11/24/24 documented as of this encounter
--- OUTSIDE RECORDS SUMMARY | 2025-03-13 17:58 | XMS_ITS | Encounter Summary ---
Author Organization [facility] Address [address] [place] [address] Care Team Providers Care Business Continuity Analyst Name Role Phone Unavailable Primary Care Provider Unavailabl e Encounter Details Date Type Department Care Team (Late st Contact Info) Description 02/14/2025 Results Follow-Up General Surgery - [address] [place] [address] Gray Valdovinos MD [address] [place] [phone] Social History Tobacco Use Types Packs/Day Years [...] on file documented as of this encounter Plan of Treatment Not on file documented as of this encounter Visit Diagnoses Not on filedocumented in this encounter
--- OUTSIDE RECORDS SUMMARY | 2025-03-13 17:58 | XMS_ITS | Encounter Summary ---
Author Organization [employer] Address [address] [facility] 7t [place] [address] Care Team Providers Care Lemon Picker Name Role Phone Meredith Morris MD Primary Care Provider [phone] Ailyn Smart CNP Primary Care Provider [phone] Reason for Visit * Reason Onset Date Comments triage 08/26/2022 Encounter Details Date Type Department Care Team (Late st Contact Info) Description 08/26/[address] [facility] MEDICINE [address] [place] [address] Meredith Morris MD [address] [place] [address] triage Social History Tobacco Use Types Packs/Day [...] 08/26/2022 10:38 AM EDT Triage call with [employer] Cnc Operator Programmer ID [id number] Pt reports just returned from [place] last night and noted some bug bites [...] The caller accepted this outcome pt speaks kiswahili documented in this encounter Plan of Treatment Not on file documented as of this encounter Visit Diagnoses Not on filedocumented in this encounter Care Teams Lemon Picker Relationship Specialty Start Date End Date Meredith Morris MD [address] [place] [address] PCP - General Family Medicine 04/01/12 11/23/24 Ailyn Smart CNP [address] [place] [address] PCP - General Family Medicine 11/24/24 documented as of this encounter
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
--- OUTSIDE RECORDS SUMMARY | 2025-03-13 17:58 | XMS_ITS | Clinical Summary ---
Author Organization [employer] Address [address] [facility] [address] [place] [address] Care Team Providers Care Paper Latcher Name Role Phone Ailyn Smart JOSSIE Primary Care Provider [phone] Allergies Active Allergy Reactions Criticality Noted Date [...] MOUTH EVERY DAY 90 tablet 2 Active Diclofenac Sodium 1 % gel APPLY [...] lidocaine (Lidoderm) 5 % patch daily Active metFORMIN (Glucophage) 500 MG tabletIndicatio ns:Type 2 diabetes mellitus without complication, without long-term current use of insulin (HCC) Take 1 tablet (500 mg) by mouth with breakfast and with evening meal. 60 tablet 11 025 2025 Active simvastatin (Zocor) 20 MG tablet Take 1 tablet (20 mg) by mouth in the evening. 90 tablet 1 Active amLODIPine (Norvasc) 10 MG tabletIndicatio ns:Primary [...] times daily as needed. 578 g Active bisacodyl (Dulcolax) 5 MG EC tabletIndicatio ns:Other constipation Take 2 tablets (10 mg) by mouth if needed each day for constipation. 60 tablet 025 2024 Active Tirzepatide (Mounjaro) 2.5 MG/0.5ML solution auto-injectorIn dications:Type 2 diabetes mellitus without complication, without long-term current use of insulin (HCC) Inject 2.5 mg under the skin 1 (one) time per week. 2 mL 2 Active albuterol (Ventolin HFA) 108 (90 Base) MCG/ACT inhalerIndicati ons:Mild intermittent asthma with acute exacerbation Inhale 2 puffs every 6 (six) hours if needed for wheezing. 18 g 3 Active budesonide (Pulmicort) 90 MCG/ACT inhalerIndicati ons:Mild intermittent asthma with acute exacerbation Inhale 1 puff in the morning and at bedtime. Rinse mouth with water after use to reduce aftertaste and incidence of candidiasis. Do not swallow. 1 each 025 2025 Active predniSONE (Deltasone) 20 MG tabletIndicatio ns:Mild intermittent asthma with acute exacerbation Take 1 tablet (20 mg) by mouth Once per day for 5 days. 5 tablet 2024 Active Ventolin HFA 108 (90 Base) MCG/ACT inhaler INHALE 2 PUFFS EVERY 4 HOURS IF NEEDED FOR WHEEZING. 18 g 3 024 2024 Discontinued(R eorder (will not trigger notification to Pharmacy)) bisacodyl (Dulcolax) 5 MG EC tablet 20 mg. 024 2024 Discontinued(R eorder (will not trigger notification to Pharmacy)) budesonide (Pulmicort) 90 MCG/ACT inhalerIndicati ons:Mild intermittent asthma with acute exacerbation Inhale 1 puff in the morning and at bedtime. Rinse mouth with water after use to reduce aftertaste and incidence of candidiasis. Do not swallow. 1 each 025 2024 Discontinued(R eorder (will not trigger notification to Pharmacy)) Mounjaro 2.5 MG/0.5ML solution auto-injectorIn dications:Type 2 diabetes mellitus without complication, without long-term current use of insulin (HCC) INJECT ONE PEN (=2.5MG) SUBCUTANEOUSLY ONCE A WEEK DIRECTED 2 mL 025 2024 Discontinued(R eorder (will not trigger notification to Pharmacy)) Active Problems Problem Noted Date Diagnosed Date [...] if no improvement or worsening. Morbid obesity (CMS/HCC) 11/23/2011 Resolved Problems Problem Noted Date Diagnosed [...] Encounters Date Type Department Care Team Description 03/13/2025 1:30 PM EST Office Visit [facility] [address] [place] [address] Ailyn Smart CNP Primary hypertension (Primary Dx); Type 2 diabetes mellitus without complication, without long-term current use of insulin ([facility]); Mild intermittent asthma with acute exacerbation 03/13/2025 Travel 03/12/2025 Telephone [facility] [address] [place] [address] Ailyn Smart CNP chart prep 03/12/2025 Telephone [facility] [address] [place] [address] Ailyn Smart CNP montse prep 02/22/[address] [address] Ailyn Smart CNP new script 02/13/2025 Orders Only [facility] [address] [place] [address] Ailyn Smart CNP Other constipation (Primary Dx) 02/13/[address] [address] Ailyn Smart CNP medication change 02/08/2025 Results Follow-Up [facility] [address] [place] [address] Ailyn Smart CNP POCT glucose manually resulted, Hemoglobin A1c 02/07/2025 2:45 PM EDT Office Visit [facility] [address] [place] [address] Ailyn Smart CNP Primary hypertension (Primary Dx); Type 2 diabetes mellitus without complication, without long-term current use of insulin (HCC); Neuropathy; Other constipation 02/07/2025 Travel 02/02/2025 Telephone [facility] [address] [place] [address] Ailyn Smart CNP chart prep 02/02/[address] [address] Ailyn Smart CNP Nurse Triage 01/22/[address] [address] Ailyn Smart CNP Type 2 diabetes mellitus without complication, without long-term current use of insulin (HCC) (Primary Dx) 01/15/2025 Telephone [facility] [address] [place] [address] Ailyn Smart CNP chart prep 01/02/2025 Travel 12/27/2024 Orders Only [facility] [address] [place] [address] Ailyn Smart CNP Mild intermittent asthma with acute exacerbation (Primary Dx) 12/26/2024 Travel 12/20/2024 Telephone [facility] [address] [place] [address] Ailyn Smart CNP Prior Authorization 12/20/2024 Telephone [facility] [address] [place] [address] Ailyn Smart CNP Med Refill 12/19/2024 Results Follow-Up [facility] [address] [place] [address] Ailyn Smart CNP POCT A1c, POCT glucose manually resulted, Lipid Panel, Standard, Additional followed-up results: 10 12/16/2024 Refill [facility] [address] [place] [address] Ailyn Smart CNP Mild intermittent asthma with acute exacerbation 12/14/2024 1:15 PM EDT Office Visit [facility] [address] [place] [address] Ailyn Smart CNP Encounter to establish care (Primary Dx); Encounter for screening for malignant neoplasm of colon; Type 2 diabetes mellitus without complication, without long-term current use of insulin ([facility]); Mild intermittent asthma with acute exacerbation; Essential (primary) hypertension; Acute swimmer's ear of left side; Encounter for immunization; Dietary counseling; Exercise counseling; Class 3 severe obesity due to excess calories with serious comorbidity and body mass index (BMI) of 50.0 to 59.9 in adult; RUQ pain 12/14/2024 Travel 12/14/2024 Telephone [facility] [address] [place] [address] Ailyn Smart CNP chart prep from Last 3 Months Immunizations Immunization Administration Dates Next Due INFLUENZA INJECTABLE QUADRIV ALANT CCIIV4 MDCK Multi-dose vial 06/29/2019 Influenza injectable quadriv alent IIV4 with preservative 01/13/2016 Influenza injectable quadriv alent preservative free 02/17/2023,01/13/2022,01/15/2021,01/02,01/21/2017,12/31/2014 Influenza, IIV3, injectable 03/13/2024 Influenza, Injectable, MDCK, preservative free 03/04/2025,03/13/2024 Influenza, Split (incl. tavon fied surface antigen) [...] Mass Index 51.59 03/13/2025 1:41 PM EST Plan of Treatment Health Maintenance Due Date Last Done Comments CT Colonography 1975 Colonoscopy 1975 Colorectal Cancer Screening 1975 FIT DNA/Cologuard 1975 FIT 1975 FOBT 1975 Sigmoidoscopy 1975 Eye Exam 01/05/1986 Hepatitis B Vaccines (1 of 3 - 19+ 3-dose series) 01/05/1995 Pap Smear 01/05/1997 Cervical Cancer Screening 01/05/2006 HPV/Cotest 01/05/2006 COVID-19 Vaccine ( season) 2024 03/13/2024, 03/13/2024, 03/16/2023, Additional history exists Mammogram 07/17/2025 07/17/2024, 06/18, 10/16/2021, Additional history exists Diabetes: Hemoglobin A1C 08/08/2025 025, 12/19/2024, 12/14/2024, Additional history exists Tobacco Screening 11/20/2025 11/20/2024 Alcohol/Substance Use Screening 12/14/2025 12/14/2024 Depression Screening 12/14/2025 12/14/2024, 12/15/19 Disability Screening 12/14/2025 12/14/2024 Family Planning (PISQ) 12/14/2025 12/14/2024 SDOH Screening 12/14/2025 12/14/2024 Diabetes: Urine Protein Screening 12/19/2025 12/19/2024 Lipid Panel 12/19/2025 12/19/2024, 07/09/2021, 05/29/2021, Additional history exists Zoster Vaccines (1 of 2) 01/05/2026 Diabetes: Foot Exam 03/13/2026 03/13/2025 DTaP/Tdap/Td Vaccines (3 - Td or Tdap) 03/04/2032 03/04/2022, 01/21/2017 RSV Patients and Patients Aged 60 years or older (1 - 1-dose 75+ series) 01/05/2051 Pneumococcal Vaccine: Pediatrics (0 to 5 Years) and At-Risk Patients (6 to 49) Years Completed 12/14/2024, 08/16/2017 HIV Screening Completed 12/19/2024 Hepatitis C Screening Completed 12/19/2024 Influenza Vaccine Completed 03/04/2025, , 03/13/2024, Additional history exists HIB Vaccines Aged Out No longer eligi [...] on patient's age to complete this topic Goals Goal Patient Goal Type Associated Problems [...] chronic kidney disease No Jennifer Whitaker MA Procedures Procedure Name Priority Date/Time Associated Diagnosis Comments POCT GLUCOSE Routine 03/13/2025 1:43 PM EST Type 2 diabetes mellitus without complication, without long-term current use of insulin (HCC) HEMOGLOBIN A1C Routine 02/07/2025 3:23 PM EDT Type 2 diabetes mellitus without complication, without long-term current use of insulin (HCC) POCT GLUCOSE Routine 02/07/2025 2:42 PM EDT [...] 2:17 PM EDT Encounter to establish care BI MAMMOGRAM SCREENING TOMOSYNTHESIS BILATERAL Routine 07/17/2024 7:35 AM EDT from Last 3 Months or Most Recently Relevant to Health Maintenance Results * POCT glucose manually resulted (03/13/2025 1:43 PM EST) Only the most recent of3 resultswithin the time period is included. Glucose Blood, POC 91 60 - 200 mg/dL QC Media Lot # Comment:[id number] Lot# Expiration Date Comment:07/24/2025 Blood Capillary blood specimen / Unknown 03/13/2025 1:43 PM EST [facility] POINT OF CARE TEST ENTER/ EDIT ORDERABLES Final Result * (ABNORMAL) Hemoglobin A1c (02/07/2025 3:23 PM EDT) Only the most recent of2 resultswithin the time period is included. Hemoglobin A1c 6.7(H) <6.0 % [facility] Comment:Hemoglobin A1C Refer ence Range Adults: 4.8 - 6.0 % Non diabetic: < 6.0 % Goal: < 7.0 %Additional Action Suggested: > 8.0 %Note: Hemoglobin A1c results are invalid for patients with abnormal amounts of HbF. Blood transfusions may impact the HbA1c concentration in the patient sample. Estimated Average Glucose 146 mg/dL [facility] Comment:eAG = Estimated ave rage glucose which is %A1C expressed asaverage glucose, using the formula of the X5X-ErvtwrwVrhdcig Glucose study (ADAG), Diabetes Care, Vol.31,#8,Nov. 2007 Blood Venous blood specimen / Unknown 02/07/2025 3:23 PM EDT 02/07/2025 6:34 PM EDT [facility] LAB BLOOD ORDERABLES Roxana l Result Performing Organization Address [facility] Co de Phone Number [facility] [address] [place] [phone] * TSH W/Reflex to FT4 (12/19/2024 6:48 AM EDT) TSH reflex Free T4 2.67 0.32 - 4.0 uIU/mL [facility] Blood Venous blood specimen / Unknown 12/19/2024 6:48 AM EDT 12/19/2024 6:48 AM EDT [facility] BLOOD ORDERABLES Roxana l Result Performing Organization Address City/[facility]/ZIP Co de Phone Number [facility] [address] [place] [phone] * (ABNORMAL) CBC auto differential (12/19/2024 6:48 AM EDT) White Blood Count 7.9 4.8 - 10.8 X10*3/uL [facility] Red Blood Count 4.94 4.20 - 5.50 X10*6/uL [facility] Hemoglobin 12.6 12.0 - 16.0 g/dl [facility] Hematocrit 38.3 37.0 - 47.0 % [facility] Mean Corpuscular Volume 77.5(L) 80.0 - 98.0 fL [facility] Mean Corpuscular Hemoglobin 25.5(L) 27.0 - 33.0 pg [facility] Mean Corpuscular HGB Conc 32.9 31.0 - 35.0 g/dl [facility] Red Cell Distribution Width 14.2 11.0 - 16.0 % [facility] Platelet Count 234 160 - 400 X10*3/uL [facility] Mean Platelet Volume 11.3 9.4 - 12.3 fL [facility] Neutrophils Percent Auto 57.6 45 - 73 % [facility] Imm Gran Pct Auto 0.5(H) 0.0 - 0.4 % [facility] Lymphocytes Percent Auto 32.4 20 - 40 % [facility] Monocytes Percent Auto 5.6 2 - 11 % [facility] Eosinophils Percent Auto 3.4 0 - 4 % [facility] Basophils Percent Auto 0.5 0 - 2 % [facility] NRBC Pct Auto 0.0 0.0 - 0.2 /100WBC [facility] Neutrophils Absolute Auto 4.5 2.0 - 8.3 x10*3/uL [facility] Imm Gran Abs Auto 0.04(H) 0.00 - 0.03 X10*3/uL [facility] Lymphocytes Absolute Auto 2.6 1.2 - 4.9 X10*3/uL [facility] Monocytes Absolute Auto 0.4 0.1 - 1.2 X10*3/uL [facility] Eosinophils Absolute Auto 0.3 0.0 - 0.4 X10*3/uL [facility] Basophils Absolute Auto 0.0 0.0 - 0.2 X10*3/uL [facility] NRBC Abs Auto 0.000 0.0 - 0.012 X10*3/uL [facility] Blood Venous blood specimen / Unknown 12/19/2024 6:48 AM EDT 12/19/2024 6:48 AM EDT [facility] BLOOD ORDERABLES Roxana l Result Performing Organization Address [facility] Co de Phone Number [facility] [address] [place] [phone] * Hepatitis C Antibody with Reflex to HCV, RNA, Quantitative, Real-Time PCR (12/19/2024 6:48 AM EDT) Hepatitis C Antibody Nonreactive Nonreactive [facility] Comment:Antibodies to HCV no t detected; does not exclude early acuteHCV infection. Blood Venous blood specimen / Unknown 12/19/2024 6:48 AM EDT 12/19/2024 6:48 AM EDT [facility] BLOOD ORDERABLES Roxana l Result Performing Organization Address [facility] Co de Phone Number [facility] [address] [place] [phone] * Hepatitis B surface antigen, EIA (12/19/2024 6:48 AM EDT) Pathologist [facility] Hepatitis B Surface Ag Negative Negative [facility] Blood Venous blood specimen / Unknown 12/19/2024 6:48 AM EDT 12/19/2024 6:48 AM EDT [facility] BLOOD ORDERABLES Roxana l Result Performing Organization Address [facility] Co de Phone Number [facility] [address] [place] [phone] * Hepatitis B Core Antibody, Total (12/19/2024 6:48 AM EDT) Pathologist [facility] Hepatitis B Core Antibody Nonreactive Nonreactive [facility] Blood Venous blood specimen / Unknown 12/19/2024 6:48 AM EDT 12/19/2024 6:48 AM EDT [facility] BLOOD ORDERABLES Roxana l Result Performing Organization Address [facility] Co de Phone Number [facility] [address] [place] [phone] * HIV-1/2 Antigen and Antibodies, Fourth Generation, with Reflexes (12/19/2024 6:48 AM EDT) HIV AB/AG Nonreactive Nonreactive [facility] Comment:HIV-1 p24 Ag and/or HIV-1/HIV-2 Ab not detected.A test result that is nonreactive does not exclude thepossibility of exposure to or infection with HIV-1 and/orHIV-2. Nonreactive results in this assay for individualswith prior exposure to HIV-1 and/or HIV-2 may be due toantigen and antibody levels that are below the limit ofdetection of this assay.The [employer] HIV Ag/Ab Combo assay result andsupplemental assay results should be interpreted inconjunction with the patient's clinical presentation,history and other laboratory results. If the results areinconsistent with clinical evidence, additional testing issuggested to confirm the result. Blood Venous blood specimen / Unknown 12/19/2024 6:48 AM EDT 12/19/2024 6:48 AM EDT [facility] BLOOD ORDERABLES Roxana l Result Performing Organization Address [facility] Co de Phone Number [facility] [address] [place] [address] [phone] * Hepatitis B Surface Antibody, Qualitative (12/19/2024 6:48 AM EDT) ~Hepatitis B Surface Antibody NONREACTIVE Nonreactive [facility] Comment:Nonreactive: < 8.00 mIU/mL Blood Venous blood specimen / Unknown 12/19/2024 6:48 AM EDT 12/19/2024 6:48 AM EDT [facility] BLOOD ORDERABLES Roxana l Result Performing Organization Address City/[facility] Co de Phone Number [facility] [address] [place] [phone] * (ABNORMAL) Lipid Panel, Standard (12/19/2024 6:48 AM EDT) Triglycerides 154(H) <150 mg/dL [facility] Comment:Desirable Triglyceri de: less than 150 mg/dLBorderline High Triglyceride 150-199 mg/dLHigh Triglyceride: 200-499 mg/dLVery High Triglyceride: greater than or equal to 5OO mg/dL Cholesterol 236(H) <200 mg/dL [facility] Comment:Desirable Cholestero l: less than 200 mg/dLBorderline High Cholesterol: 200-239 mg/dLHigh Cholesterol: greater than 239 mg/dL LDL Cholesterol Calculated 165(H) <100 mg/dL [facility] Comment:Desirable LDL: less than 100 mg/dLNear Optimal/Above Optimal LDL: 110- 129 mg/dLBorderline High LDL: 130-159 mg/dLHigh LDL: 160-189 mg/dLVery High LDL: greater than or equal to 190 mg/dL HDL Cholesterol 41 >40 mg/dL [facility] Comment:Desirable HDL: great er than 40 mg/dL Note: This HDL assay may give artificially low results in patients with liver disease. Blood Venous blood specimen / Unknown 12/19/2024 6:48 AM EDT 12/19/2024 6:48 AM EDT [facility] BLOOD ORDERABLES Roxana l Result [facility] [address] [place] [phone] * (ABNORMAL) Comprehensive Metabolic Panel (12/19/2024 6:48 AM EDT) Sodium 138 135 - 145 mmol/L [facility] Potassium 4.3 3.3 - 5.1 mmol/L [facility] Chloride 104 96 - 108 mmol/L [facility] Carbon Dioxide 28 22 - 29 mmol/L [facility] Anion Gap 10(L) 12 - 20 [facility] Urea Nitrogen (BUN) 10 9 - 16 mg/dL [facility] Creatinine, Serum 0.82 0.5 - 1.4 mg/dL [facility] Estimated Glomerular Filt Rate >60 [facility] Comment:Chronic Kidney Disea se: Estimated GFR < 60 mL/min/[id number] Kidney Disease: Estimated GFR < 15 mL/min/1.73m2 Glucose 157(H) 60 - 115 mg/dL [facility] Calcium 9.2 8.4 - 10.2 mg/dL [facility] Bilirubin, Total 0.4 0.0 - 1.0 mg/dL [facility] Aspartate Amino Transferase 16 5 - 31 U/L [facility] Alanine Aminotransferase 15 0 - 31 U/L [facility] Total Protein 7.0 6.5 - 8.0 g/dL [facility] Albumin Level 4.0 3.5 - 5.0 g/dL [facility] Alkaline Phosphatase 80 39 - 117 U/L [facility] Blood Venous blood specimen / Unknown 12/19/2024 6:48 AM EDT 12/19/2024 6:48 AM EDT [facility] BLOOD ORDERABLES Roxana l Result [facility] [address] [place] [phone] * Albumin, Random Urine W/Creatinine (12/19/2024 6:43 AM EDT) Creatinine, Urine 179.42 mg/dL [facility] Microalbumin Urine 6.0 mg/L [facility] Microalbum Creatinine Ratio Ur 3.3 <30 ug/mg cr [facility] Comment:Albumin/Creatinine R atio Reference Ranges: Normal: < 30 ug/mg creatinine Microalbuminuria: 30 - 300 ug/mg creatinineClinical Albuminuria: > 300 ug/mg creatinine Urine (Urine, Random) 12/19/2024 6:43 AM EDT 12/19/2024 7:39 AM EDT [facility] URINE ORDERABLES Roxana l Result [facility] [address] [place] [phone] * (ABNORMAL) POCT A1c (12/14/2024 2:18 PM EDT) Hemoglobin A1C 8.1(A) 4.0 - 5.7 % QC Media Lot # Comment:[id number] Lot# Expiration Date Comment:07/24/2026 Blood 12/14/2024 2:18 PM EDT [facility] POINT OF CARE TEST ENTER/ EDIT ORDERABLES Final Result * BI Mammogram Screening Tomosynthesis Bilateral (07/17/2024 7:35 AM EDT) Anatomical Region Laterality Modality Breast Bilateral Mammography 07/17/2024 7:35 AM EDT Narrative 07/22/2024 5:24 PM EDT [address] [place] [address] Mammography Report Signed Patient: Ebony Chao I MR#: [id number] : 1975 Acct:[id number] Age/Sex: 49 / F ADM Date: 07/17/24 Loc: HO.MAMMO Attending Dr: Meredith Morris MD Ordering Physician: Meredith Morris MD Results: 1Negati ve Date of Service: 07/17/24 Follow Up: 1 Year From Orig inal Mammogram Procedure(s): MM tomosynthesis screening BI Accession Number(s): [id number] cc: Meredith Morris MD EXAMINATION: MM SCREENING [...] 07/22/24 1721 DD/ 0735 TD/TT: 07/17/24 0745 Family Worker: Procedure Note Donotuseinterpreter, Image - 07/22/20[facility] [address] [place] [address] Mammography Report Signed Patient: Ebony Chao IMR#: [id number] : 1975Acct:[id number] Age/Sex: 49 / FADM Date: 07/17/24 Loc: HO.MAMMO Attending Dr: Meredith Morris MD Ordering Physician: Meredith Morris MDResults: 1Negati ve Date of Service: 07/17/24Follow Up: 1 Year From Orig ina Mammogram Procedure(s): MM tomosynthesis screening BI Accession Number(s): [id number] cc: Meredith Morris MD EXAMINATION: MM SCREENING [...] 07/22/24 1721 DD/ 0735 TD/TT: 07/17/24 0745 Family Worker: Meredith Morris MD IMG BI PROCEDURES Edited Result - Final from Last 3 Months or Most Recently Relevant to Health Maintenance Additional Health Concerns Active Problems Noted Date Diagnosed Date Help patients manage their type 2 diabetes 03/13 Weekly blood pressure task 03/13/2025 Help patients manage their type 2 diabetes 03/13 Patient has chronic kidney disease 03/13/2025 Weekly blood pressure task 03/13/2025 Patient has chronic kidney disease 03/13/[address] [place] [address] , [place] [address] Care Teams Paper Latcher Relationship Specialty Start Date End Date Ailyn Smart CNP PCP - General Family Medicine 11/24/24
--- OUTSIDE RECORDS SUMMARY | 2025-03-13 17:58 | XMS_ITS | Encounter Summary ---
Author Organization [employer] Address [address] [facility] [address] [place] [address] Care Team Providers Care Detention Sergeant Name Role Phone Ailyn Smart CNP Primary Care Provider [phone] Reason for Visit * Reason Onset Date Comments montse prep 03/12/2025 Encounter Details Date Type Department Care Team ([facility] st Contact Info) Description 03/12/2025 Telephone [facility] [address] [place], [place] [phone] Ailyn Smart CNP [address] [place] [address] montse prep Social History Tobacco Use Types Packs/Day [...] Telephone Encounter - Jennifer Whitaker MA - 03/12/2025 1:32 PM EST Chart Prep Labs: not applicable Images: not applicable Referrals: not applicable Vaccines due: Covid and Hep B Screenings: colonoscopy, pap smear, and foot exam Overdue care gaps: Glucose documented in this encounter Plan of Treatment Not on file documented as of this encounter Visit Diagnoses Not on filedocumented in this encounter Additional Health Concerns Assessment Noted Time PHQ-9 Depression Total Score: 2 12/15/19 1:31 PM EDT documented as of this encounter Care Teams Detention Sergeant Relationship Specialty Start Date End Date Ailyn Smart CNP PCP - General Family Medicine 11/24/24 documented as of this encounter
== END 2025-03-13 14:02 | disposition home or self-care (01) ==
LOC: HO.CHCLDS 14:01
DX: E11.9 Type 2 diabetes mellitus without complications (principal)
CPT/HCPCS: 36415; 83036